=== PATIENT | male | born 1950 | race Caucasian/White ===

== ENCOUNTER 2018-03-29 08:48 | Day surgery (SDC) | payer OTHER ==
[2018-03-29] MEDS ORDERED: Ringers Lactate 1,000 ML IV ONE (09:41)
[2018-03-29] MEDS ORDERED: PROPOFOL 200 MG/20 ML VIAL IV ONE (10:23)
[2018-03-29] MEDS ORDERED: ROCURONIUM 50 MG/5 ML VIAL IV ONE (10:23)
[2018-03-29] MEDS ORDERED: LIDOCAINE 2% MPF 5 ML VIAL ONE ×2 (10:23→11:34)
[2018-03-29] MEDS ORDERED: MIDAZOLAM HCL 2 MG/2 ML INJ ONE (10:23)
[2018-03-29] MEDS ORDERED: FENTANYL CITR 100 MCG/2 ML ONE ×2 (10:23→11:31)
[2018-03-29] MEDS ORDERED: EPINEPHRINE/PF 1 MG/ML AMP ONE (11:11)
[2018-03-29] MEDS ORDERED: ONDANSETRON HCL 40 MG/20 ML VIAL ONE (11:23)
[2018-03-29] MEDS ORDERED: DEXAMETHASONE 4 MG/ML VIAL ONE (11:23)
[2018-03-29] MEDS ORDERED: EPHEDRINE SULF 50 MG/10 ML SYR ONE (11:24)
--- NOTE | 2018-03-29 11:36 | P.BOP ---
Preoperative diagnosis: R TVF lesion, history R TVC SCC in situ in 2013 Postoperative diagnosis: same Primary procedure: DL with telescope and removal of vocal tumor Prosthetic Lab Technician: NONE,NONE Estimated blood loss: <5ml Specimen: R TVF lesion Anesthesia: General Complications: None Drain(s): Nasogastric Implants: none Fluids & blood products: crystalloid 800ml Transferred to: Recovery Room Condition: Good
[2018-03-29 12:15] VITALS: O2SAT 94
[2018-03-29 12:51] VITALS: TEMP 96.1
[2018-03-29 13:37] VITALS: BP 126/72
--- NOTE | 2018-03-29 16:49 | OP ---
Surgeon: Jazz Mahoney MD Preoperative Diagnosis: Right vocal cord mass. Postoperative Diagnosis: Right vocal cord mass. Pathology: Pending. 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 He did well with initial monitoring and then was lost to follow up. He re-presented with new onset hoarseness and in-office laryngoscopy revealed a new mass on the right true vocal cord phonating surface, slightly posterior to the site of his prior lesion. The risks, benefits, and alternatives to the procedure were discussed with the patient who agreed to proceed. Procedure: Direct laryngoscopy with telescope and excision of vocal lesion. Description Of Procedure: The patient was brought to the operating room. He was placed under genera l anesthesia via oral endotracheal tube. A shoulder roll was placed. The neck was extended, but sup ported. A [employer] laryngoscope fitted with a 15-degree telescope was used to perform a direct l aryngoscopy and was placed in suspension. Photodocumentation of the lesion centered on the midportio n of the right true vocal cord was obtained. The lesion was then grasped with an angled laryngeal gr asper and retracted medially. The mass began to fragment and was therefore removed in a piecemeal fa shion. A small amount of residual tumor was then grasped with a small up-biting cup forceps. Once t his tissue was grasped, a straight and left angled laryngeal scissors were used to excise the lesion until no gross visible lesion was noted. Epinephrine-soaked pledget was applied to the vocal cord fo r several minutes to aid in hemostasis, and photodocumentation was again obtained of the site. There was no gross residual lesion noted. The larynx was suctioned and instrumentation was released from suspension and removed. The patient was then returned to care of anesthesia for awakening and extuba tion in the operating room, which proceeded without difficulty. Disposition: The patient will be discharged home later today and resume his anticoagulant anti-plate let medications tomorrow. GEMMA/MARLEN Voice ID: [id number] Report ID: [id number]
== END 2018-03-29 13:20 | disposition home or self-care (01) ==
LOC: OR 08:48
PROVIDERS: ATTEND Otolaryngology
PROC: 0CBT8ZZ Excision of Right Vocal Cord, Via Natural or Artificial Opening Endoscopic (ICD-10-PCS; principal; 2018-03-29 10:30)
DX: C32.0 Malignant neoplasm of glottis (principal); R49.0 Dysphonia; I10 Essential (primary) hypertension; I48.91 Unspecified atrial fibrillation; E66.9 Obesity, unspecified; Z68.38 Body mass index [BMI] 38.0-38.9, adult; Z91.041 Radiographic dye allergy status; Z91.040 Latex allergy status; Z80.9 Family history of malignant neoplasm, unspecified; Z83.3 Family history of diabetes mellitus
CPT/HCPCS: 88305; J0171; J2250; J2405; J3010

== ENCOUNTER 2019-06-09 07:01 | Day surgery (SDC) | payer OTHER ==
--- OUTSIDE RECORDS SUMMARY | 2019-06-09 07:03 | XMS REPORT ---
:1950 [facility] Address [address] [place] [address] Dr. Pacheco [address] [place] [id number] Care Team Providers Name Role Phone Unavailable Unavailable Unavailable Problems This patient has no known problems. Allergies, Adverse Reactions, Alerts This patient has no known allergies or adverse reactions. Medications This patient has no known medications.
[2019-06-09] MEDS ORDERED: Ringers Lactate 1,000 ML IV ONE (07:21)
[2019-06-09] MEDS ORDERED: CEFOXITIN/SWI 1gm 1 GM/10 ML SYR ONE (07:21)
[2019-06-09 07:48] LABS: Absolute Lymphocytes (CBC) 1.9 K/uL (0.7-4.9); Basophils % 0.5 % (0-1.3); Hematocrit 45.2 % (39.6-49.0); MPV 9.2 fL (7.6-11.3); RBC Red Blood Cell Count 5.18 M/uL (4.33-5.43)
[2019-06-09] MEDS ORDERED: FENTANYL CITR 100 MCG/2 ML ONE (07:55)
[2019-06-09] MEDS ORDERED: propofoL 200 MG/20 ML VIAL IV ONE (07:55)
[2019-06-09] MEDS ORDERED: MIDAZOLAM HCL 2 MG/2 ML INJ ONE (07:55)
[2019-06-09] MEDS ORDERED: LIDOCAINE 2% MPF 5 ML VIAL ONE (07:55)
[2019-06-09] MEDS ORDERED: ROCURONIUM 50 MG/5 ML VIAL IV ONE (08:04)
[2019-06-09] MEDS ORDERED: ONDANSETRON 4 MG/2 ML VIAL ONE (08:04)
[2019-06-09 08:06] LABS: Albumin 3.9 g/dL (3.4-5.0); Bilirubin Direct 0.2 mg/dL (0-0.2); Bilirubin Total 1.3 mg/dL (0.2-1.0); Potassium 4.6 mmol/L (3.5-5.1); Protein, Total 7.6 g/dL (6.4-8.2)
--- NOTE | 2019-06-09 08:41 | RAD REPORT ---
EXAM DESCRIPTION: RAD - Chest Pa And Lat (2 Views) - 06/09/2019 7:23 am CLINICAL HISTORY: SAME DAY SURGER ROOM 1 Chest pain. COMPARISON: Chest Pa And Lat (2 Views) dated 08/14/2016 FINDINGS: The lungs are clear. The heart is normal in size. No displaced fractures. IMPRESSION: No acute or concerning finding suspected.
[2019-06-09] MEDS ORDERED: GLYCOPYRROLATE 0.2 MG/ML SYR ONE (09:02)
[2019-06-09] MEDS ORDERED: NEOSTIGMINE 1 MG/ML -10 ML VIAL ONE (09:02)
--- NOTE | 2019-06-09 09:12 | P.BOP ---
Preoperative diagnosis: symptomatic cholelithiasis, acute cholecystitis Postoperative diagnosis: same Primary procedure: Laparoscopic cholecystectomy Barrel Builder: NICK BARCENAS (prop and effects designer) Estimated blood loss: <10cc Specimen: gb Findings: as above Anesthesia: General Complications: None Transferred to: Recovery Room Condition: Good
[2019-06-09 09:19] LABS: Blood Morphology Comment NOT SEEN (NOT SEEN); Platelet Estimate ADEQ; Urine White Blood Cell Casts DIFF
[2019-06-09] MEDS: HYDROMORPHONE HCL 1 MG/ML INJ ONE ×2 (09:41→09:46)
--- NOTE | 2019-06-09 10:40 | EKG ---
Test Date: 2019-06-09 Test Time: 07:49:47 [place] Tile Shader: DEBORAH MEASUREMENT RESULTS: Intervals: Rate: 63 CA: 172 QRSD: 96 QT: 420 QTc: 429 [place]: P: 55 CA: 172 QRS: 37 T: 55 INTERPRETIVE STATEMENTS: Normal sinus rhythm Normal ECG Compared to ECG 08/14/2016 21:05:01 Atrial fibrillation no longer present Electronically Signed On 06-09-19 10:39:43 WINDOWS APPLICATION ADMINISTRATOR by Pierre Campos
[2019-06-09] MEDS ORDERED: CODEINE 30MG/APAP 300MG TAB ONE (11:22)
[2019-06-09 16:00] VITALS: BP 111/61; TEMP 97.5; O2SAT 94
--- NOTE | 2019-06-09 20:15 | OP ---
Date of Procedure: 06/09/2019 Surgeon: Carl Vergara MD Respiratory Equipment Assistant: Fanta Blakely. Preoperative Diagnosis: Symptomatic cholelithiasis. Postoperative Diagnosis: Symptomatic cholelithiasis. Procedure: Laparoscopic cholecystectomy. Estimated Blood Loss: Less than 10 mL. Anesthesia: General plus local. Indications: This is a case of a 69-year-old patient, who comes to us with above diagnosis. Fully e xplained the benefits, alternatives, and risks of laparoscopic, possible open cholecystectomy, which include but are not limited to infection, bleeding, damage to adjacent structures, anesthesia complic ation, choledocholithiasis, bile leak, pancreatitis, VA, and even . He also understands this ma y not relieve his symptoms. He might need more than one surgical intervention. He understood, amanda d a consent. Description Of Procedure: Patient was brought to the operating room, placed in supine position. Ane sthesia was given without complication. Abdominal area was prepped and draped in a sterile fashion. Marcaine 0.5% was injected for local anesthetic, followed by sharp incision of the skin in the supra umbilical region since the patient has previous surgeries in the lower abdomen. Incision was carried down to fascia, which was opened under direct vision. Peritoneum was encountered, opened under dire ct vision. Vicryl #1 placed inside the fascia. Bruno trocar was carefully introduced. No bleeding was obtained. I placed 3 more trocars, 5 mm each one of them, in the right upper quadrant under dir ect visualization. This allowed me to put a grasper in the fundus of the gallbladder, another graspe r in the infundibulum, retracted the gallbladder in the inferolateral fashion exposing the triangle o f Calot, obtaining critical view of safety. Cystic duct and cystic artery were clearly isolated, sonya ed circumferentially and a connection between those and the gallbladder was clearly identified. I pr oceeded to ligate those by using at least 3 clips proximal, 1 clip distal, ligation in middle. Same was done with the cystic artery. No bile leak. No bleeding. The gallbladder was removed from liver using Bovie cauterizer and removed from abdominal cavity using EndoCatch through the umbilical incis ion. The area was inspected once again. No bile leak. No bleeding. At that moment, I proceeded to remove the trocars under direct vision. Deflated the pneumoperitoneum. Closed the fascia with #1 V icryl. Irrigated subcutaneous tissue, closed that with 3-0 chromic and skin with archana. Sponge co unt and instrument counts were correct. Patient tolerated the procedure well. Patient was sent to [facility] in stable condition. Disposition: Home. Activity: As tolerated. No heavy lifting. Followup: Follow up in my office in 1 week. Call for appointment on [phone]. Keep area dry for 48 hours, then may shower. Medications includes Tylenol No. 3 q.4 hours p.r.n. pain and Bactrim DS p.o . b.i.d. ALYSIA/MARLEN Voice ID: [id number] Report ID: [id number]
== END 2019-06-09 12:05 | disposition home or self-care (01) ==
LOC: OR 07:01
PROVIDERS: ATTEND Surgery
PROC: 0FT44ZZ Resection of Gallbladder, Percutaneous Endoscopic Approach (ICD-10-PCS; principal; 2019-06-09 08:30)
DX: K80.10 Calculus of gallbladder with chronic cholecystitis without obstruction (principal); I10 Essential (primary) hypertension; I48.91 Unspecified atrial fibrillation; Z01.812 Encounter for preprocedural laboratory examination; Z91.041 Radiographic dye allergy status; Z80.1 Family history of malignant neoplasm of trachea, bronchus and lung; Z83.3 Family history of diabetes mellitus
CPT/HCPCS: 47562; 93005; 85025; 80048; 36415; 82150; 80076; 88304; 83690; 71046; J2704; J2710; J2250; J3010; J1170; J7120; J2405

== ENCOUNTER 2021-05-19 09:13 | Emergency (ER) | payer OTHER ==
--- OUTSIDE RECORDS SUMMARY | 2021-05-19 09:17 | XMS REPORT | Continuity of Care Document ---
:1950 Author Organization [facility] t Address [address] [place] [address] Care Team Providers Name Role Phone Afsaneh KUMAR, R Primary Care Physician Mario KUMAR, L Attending Clinician HAYDEE Attending Clinician Unavailable JAYA Attending Clinician Unavailable TIFFANI Attending Clinician Unavailable MD Denys HUBBARD Attending Clinician Unavailable ZAID Attending Clinician Unavailable AKHIL Attending Clinician Unavailable MD JOVANY Attending Clinician Unavailable Ben KUMAR, [place] Attending Clinician TERRI Attending Clinician Unavailable Megan Andrew PA-C Attending Clinician Laura RN, A Attending Clinician Unavailable Lefty KUMAR Attending Clinician Jeremy KUMAR Attending Clinician SAIGE Attending Clinician Unavailable HAYDEE Admitting Clinician Unavailable MD Denys HUBBARD Admitting Clinician Unavailable JOVANY Admitting Clinician Unavailable MD JOVANY Admitting Clinician Unavailable TERRI Admitting Clinician Unavailable Jeremy KUMAR Admitting Clinician Payers Payer Name Policy Type Policy Number Effective Date Expiration Date S ource Problems Condition Condition Condition Status Onset Resolution Last Treating Co mments Source Name Details Category Date Date Treatment Clinician Date Essential Essential Disease Active 2019-0 Uni vers hypertensi hypertensi 5-15 it y of on on 00:00: [address] Branch Near Near Disease Active 2020-0 Univers syncope syncope 5-15 ity of 00:00: [place] 00 [facility] Diaphoresi Diaphoresi Disease Active U nivers s s 5-14 ity of 00:00: [place] [facility] Oropharyng Oropharyng Disease Active U nivers eal eal 4-21 ity of bleeding bleeding 00:00: 00 Medical Branch Pneumonia Pneumonia Disease Active 2017-06 Uni vers 2-22 ity of 00:00: [place] [facility] Vertigo Vertigo Disease Active Univers 6-02 ity of 00:00: [place] [facility] Dizziness Dizziness Disease Active Uni vers and and 6 ity of gidd[place] PAF PAF Disease Active Univers (paroxysma (paroxysma 08-20 it y of l atrial l atrial 00:00: [place] fibrillati fibrillati 00 Me dical on) on) Branch Obesity Obesity Disease Active Univers (BMI (BMI 2 ity of 30-39.9) 30-39.9) 00:00: [place] 00 [facility] Allergies, Adverse Reactions, Alerts Allergy Allergy Status Severity Reaction(s) Onset Inactive Treating Comm ents Source Name Type Date Date Clinician Codeine Propensi Active Unknown - Univ ers ty to See comments 11-23 reports ity of adverse 00:00: allergy [place] reaction 00 Medical s Branch Codeine Propensi Active GI Other [facility] ty to 11-23 reaction( [facility] adverse 00:00: s): of reaction 00 Unknown - Medic in s to See e drug commentsW salty reports allergy Iodine Propensi Active Anaphylaxis Uni vers ty to 08-20 ity of adverse 00:00: [place] reaction 00 Medical s Branch Latex, Propensi Active Rash Univers Natural ty to 08-20 ity of Rubber adverse 00:00: [place] reaction 00 Medical s Branch Iodine Propensi Active Anaphylaxis [facility] ty to 08-20 [place] adverse 00:00: of reaction 00 Medicin s to e drug Latex Propensi Active Rash ADHESIVES [facility] ty to 08-20 - PAPER [facility] adverse 00:00: TAPE AND of reaction 00 TEGADERM Medici n s to OK TO USE e substanc e Social History Social Habit Start Date Stop Date Quantity Comments Source History of tobacco Cigarette Smoker University of use [facility] Exposure to Not sure University SARS-CoV-2 (event) [facility] Tobacco use and 2020-03-03 2020-03-03 Never used [facility] llege of exposure 00:00:00 00:00:00 Medicine Cigarettes smoked 2020-03-03 2020-03-03 [facility] of current (pack per 00:00:00 00:00:00 Medicin e day) - Reported Cigarette 2020-03-03 2020-03-03 [facility] of pack-years 00:00:00 00:00:00 Medicine Alcohol intake 2020-03-03 2020-03-03 [facility] of 00:00:00 00:00:00 non-drinker Medicine (finding) Tobacco Comment 2019-11-19 2019-11-19 quit 1986 [facility] 00:00:00 00:00:00 Medicine Sex [birth year] [facility] llege of 00:00:00 00:00:00 Medicine Smoking Status Start Date Stop Date Source Former smoker 2020-03-03 00:00:00 2020-03-03 00:00:00 [facility] olle of Medicine Medications Ordered Filled Start Stop Current Ordering Indication Dosage Frequency Signature Comments Components Source Medication Medication Date Date Medication? Clinician (SIG) Name Name irbesartan Yes 300mg Take 300 Un [place] 300 mg 7-02 mg by ity of tablet 16:17: mouth at [place] [id number] bedtime. Medical Branch irbesartan Yes 300mg Take 300 [place] 300 mg 7-02 mg by ity of tablet 16:17: mouth at [place] [address] bedtime. Medical Branch Phenylephri 2019-06 Yes 10mL Take 10 mL [facility] ne-DM-GG 2-09 by mouth. Judie mayers 5-10-100 17:05: of MG/5ML SYRP 59 Medicin e polyethylen 2019-06 Yes 17g Take 17 g [facility] e glycol 2-09 by mouth. Colleg e (GLYCOLAX) 17:05: of 17 GM/SCOOP 59 Medicin powder e tramadol-ac 2019-06 Yes 1{tbl} Take 1 [facility] etaminophen 2-09 Tablet by Col lege (ULTRACET) 17:05: mouth. of 37.5-325 MG 59 Medicin per tablet e botulinum 2019-06 2020- No 100U Inject 100 [facility] toxin type 2-02 12-09 Units into Co llege A (BOTOX) 00:00: 00:00 the of 100 units 00 :00 muscle. Medicin injection e levothyroxi 2020- No 100ug Take 100 [facility] ne 9-16 09-17 mcg by College (SYNTHROID) 00:00: 04:59 mouth. of 100 MCG 00 :00 Medicin tablet e furosemide 2020-0 Yes [facility] (LASIX) 20 9-09 College MG tablet 18:39: of 48 Medicin e furosemide 2020-0 Yes [facility] (LASIX) 20 9-09 College MG tablet 18:39: of 48 Medicin e amoxicillin 2020-0 2020- No 1{tbl} Take 1 Tab [facility] -clavulanat 7-30 08-07 by mouth Col lege e 00:00: 04:59 two times of (AUGMENTIN) 00 :00 daily for Med icin 875-125 MG 7 days. e per tablet furosemide 2020-0 Yes [facility] (LASIX) 20 7-22 College MG tablet 19:53: of 06 Medicin e furosemide 2020-0 Yes [facility] (LASIX) 20 7-22 College MG tablet 19:53: of 06 Medicin e mupirocin 2020-0 Yes Apply to [facility] calcium 7-22 affected College (BACTROBAN) 00:00: area twice of 2 % cream 00 a day. Medicin e mupirocin 2020-0 Yes Apply to [facility] calcium 7-22 affected College (BACTROBAN) 00:00: area twice of 2 % cream 00 a day. Medicin e mupirocin 2020-0 Yes Apply to [facility] calcium 7-22 affected College (BACTROBAN) 00:00: area twice of 2 % cream 00 a day. Medicin e mupirocin 2020-0 Yes Apply to [facility] calcium 7-22 affected College (BACTROBAN) 00:00: area twice of 2 % cream 00 a day. Medicin e furosemide 2020-0 Yes [facility] (LASIX) 20 7-21 College MG tablet 18:46: of 05 Medicin e amoxicillin 2020-0 2020- No 1{tbl} Take 1 Tab [facility] -clavulanat 7-20 07-28 by mouth Col lege e 00:00: 04:59 two times of (AUGMENTIN) 00 :00 daily for Med icin 875-125 MG 7 days. e per tablet amoxicillin 2020-0 2020- No 1{tbl} Take 1 Tab [facility] -clavulanat 01-11 by mouth Col lege e 00:00: 04:59 two times of (AUGMENTIN) 00 :00 daily for Med icin 875-125 MG 7 days. e per tablet pantoprazol 2020-0 Yes TK 1 T PO [facility] e 01-09 QA College (PROTONIX) 00:00: of 40 MG 00 Medicin tablet e pantoprazol 2020-0 Yes TK 1 T PO [facility] e 01-09 [facility] (PROTONIX) 00:00: of 40 MG 00 Medicin tablet e pantoprazol 2020-0 Yes TK 1 T PO [facility] e 01-09 [facility] (PROTONIX) 00:00: of 40 MG 00 Medicin tablet e pantoprazol 2020-0 Yes TK 1 T PO [facility] 00:00: of 40 MG 00 Medicin tablet e furosemide 2020-0 Yes [facility] (LASIX) 20 7-08 College MG tablet 20:41: of 44 Medicin e amiodarone 2020-0 Yes [facility] (PACERONE) 5-21 College 200 MG 00:00: of tablet 00 Medicin e rosuvastati 2020-0 Yes TK 1 T PO [facility] n (CRESTOR) 5-21 QD College 10 MG 00:00: of tablet 00 Medicin e amiodarone 2020-0 Yes [facility] (PACERONE) 5-21 College 200 MG 00:00: of tablet 00 Medicin e rosuvastati 2020-0 Yes TK 1 T PO [facility] n (CRESTOR) 5-21 QD College 10 MG 00:00: of tablet 00 Medicin e amiodarone 2020-0 Yes [facility] (PACERONE) 5-21 College 200 MG 00:00: of tablet 00 Medicin e amiodarone 2020-0 Yes [facility] (PACERONE) 5-21 College 200 MG 00:00: of tablet 00 Medicin e rosuvastati 2020-0 Yes TK 1 T PO [facility] n (CRESTOR) 5-21 QD College 10 MG 00:00: of tablet 00 Medicin e rosuvastati 2020-0 Yes 10mg Take 10 mg Univers n 10 mg 5-21 by mouth. ity of tablet 00:00: [address] rosuvastati 2020-0 Yes TK 1 T PO [facility] n (CRESTOR) 5-21 QD College 10 MG 00:00: of tablet 00 Medicin e amiodarone 2020-0 Yes [facility] (PACERONE) 5-21 College 200 MG 00:00: of tablet 00 Medicin e rosuvastati 2020-0 Yes TK 1 T PO [facility] n (CRESTOR) 5-21 QD College 10 MG 00:00: of tablet 00 Medicin e amiodarone 2020-0 Yes [facility] (PACERONE) 5-21 College 200 MG 00:00: of tablet 00 Medicin e rosuvastati 2020-0 Yes TK 1 T PO [facility] n (CRESTOR) 5-21 QD College 10 MG 00:00: of tablet 00 Medicin e rosuvastati 2020-0 Yes 10mg Take 10 mg Univers n 10 mg 5-21 by mouth. ity of tablet 00:00: [address] rivaroxaban 2020-0 Yes 20mg Take 20 mg Univers (XARELTO) 5-15 by mouth ity of 20 mg 14:43: daily. [address] rivaroxaban 2020-0 Yes 20mg Take 20 mg Univers (XARELTO) 5-15 by mouth ity of 20 mg 14:43: daily. [address] levothyroxi 2020-0 Yes 88ug Take 88 [place] [facility] ne 5-15 mcg by College (SYNTHROID) 00:00: mouth. of 88 MCG 00 Medicin tablet e levothyroxi 2020-0 Yes 88ug Take 88 [place] [facility] ne 5-15 mcg by College (SYNTHROID) 00:00: mouth. of 88 MCG 00 Medicin tablet e levothyroxi 2020-0 Yes 88ug Take 88 [place] [facility] ne 5-15 mcg by College (SYNTHROID) 00:00: mouth. of 88 MCG 00 Medicin tablet e levothyroxi 2020-0 Yes 88ug Take 88 [place] [facility] ne 5-15 mcg by College (SYNTHROID) 00:00: mouth. of 88 MCG 00 Medicin tablet e levothyroxi 2020-0 Yes 88ug Take 88 [place] ne 5-15 mcg by [place] (SYNTHROID) 00:00: mouth. of 88 MCG 00 Medicin tablet e levothyroxi 2020-0 Yes 88ug Take 88 [place] [facility] ne 5-15 mcg by [place] (SYNTHROID) 00:00: mouth. of 88 MCG 00 Medicin tablet e levothyroxi 2020-0 Yes [id number] 88ug Take 1 Univers ne 88 mcg 5-15 tablet by ity o f tablet 00:00: mouth [place] 00 every Medical morning. Branch metoprolol 2020-0 Yes [id number] 12.5mg Take 12.5 Univers succinate 5-15 mg by ity of 25 mg CSpX 00:00: mouth [place] 00 daily. Medical Branch levothyroxi 2020-0 Yes [id number] 88ug Take 1 Univers ne 88 mcg 5-15 tablet by ity o f tablet 00:00: mouth [place] 00 every Medical morning. Branch metoprolol 2020-0 Yes [id number] 12.5mg Take 12.5 Univers succinate 5-15 mg by ity of 25 mg CSpX 00:00: mouth [place] 00 daily. Medical Branch XARELTO 20 2020-0 Yes TK 1 T PO [facility] MG TABS 5-11 D [facility] 00:00: of 00 Medicin e XARELTO 20 2020-0 Yes TK 1 T PO [facility] MG TABS 5-11 D [facility] 00:00: of 00 Medicin e XARELTO 20 2020-0 Yes TK 1 T PO [facility] MG TABS 5-11 D [facility] 00:00: of 00 Medicin e XARELTO 20 2020-0 Yes TK 1 T PO [facility] MG TABS 5-11 D [facility] 00:00: of 00 Medicin e XARELTO 20 2020-0 Yes TK 1 T PO [facility] MG TABS 5-11 D [facility] 00:00: of 00 Medicin e XARELTO 20 2020-0 Yes TK 1 T PO [facility] MG TABS 5-11 D [facility] 00:00: of 00 Medicin e metoprolol 2020-0 Yes TK 1 T PO [facility] (LOPRESSOR) 5-09 College 25 MG 00:00: of tablet 00 Medicin e metoprolol 2020-0 Yes TK 1 T PO [facility] (LOPRESSOR) 5-09 QD College 25 MG 00:00: of tablet 00 Medicin e metoprolol 2020-0 Yes TK 1 T PO [facility] (LOPRESSOR) 5-09 QD College 25 MG 00:00: of tablet 00 Medicin e metoprolol 2020-0 Yes TK 1 T PO [facility] (LOPRESSOR) 5-09 QD College 25 MG 00:00: of tablet 00 Medicin e metoprolol 2020-0 Yes TK 1 T PO [facility] (LOPRESSOR) 5-09 QD College 25 MG 00:00: of tablet 00 Medicin e metoprolol 2020-0 Yes TK 1 T PO [facility] (LOPRESSOR) 5-09 QD College 25 MG 00:00: of tablet 00 Medicin e amlodipine 2020-0 Yes [facility] (NORVASC) 5 3-10 College MG tablet 00:00: of 00 Medicin e irbesartan 2020-0 Yes [facility] (AVAPRO) 3-10 College 300 MG 00:00: of tablet 00 Medicin e amlodipine 2020-0 Yes [facility] (NORVASC) 5 3-10 College MG tablet 00:00: of 00 Medicin e irbesartan 2020-0 Yes [facility] (AVAPRO) 3-10 College 300 MG 00:00: of tablet 00 Medicin e amlodipine 2020-0 Yes [facility] (NORVASC) 5 3-10 College MG tablet 00:00: of 00 Medicin e amlodipine 2020-0 Yes [facility] (NORVASC) 5 3-10 College MG tablet 00:00: of 00 Medicin e irbesartan 2020-0 Yes [facility] (AVAPRO) 3-10 College 300 MG 00:00: of tablet 00 Medicin e irbesartan 2020-0 Yes [facility] (AVAPRO) 3-10 College 300 MG 00:00: of tablet 00 Medicin e amlodipine 2020-0 Yes [facility] (NORVASC) 5 3-10 College MG tablet 00:00: of 00 Medicin e irbesartan 2020-0 Yes [facility] (AVAPRO) 3-10 College 300 MG 00:00: of tablet 00 Medicin e amlodipine 2020-0 Yes [facility] (NORVASC) 5 3-10 College MG tablet 00:00: of 00 Medicin e irbesartan 2020-0 Yes [facility] (AVAPRO) 3-10 College 300 MG 00:00: of tablet 00 Medicin e acetaminoph 2019-1 Yes 1{tbl} 1 Tablet. [facility] en-codeine 2-16 College (TYLENOL 00:00: of #3) 300-30 00 Medicin MG per e tablet fluticasone 2018-0 Yes 2{spray 2 Sprays [facility] (FLONASE) 4-23 } by Nasal Colleg e 50 MCG/ACT 00:00: route. of nasal spray 00 Medicin e fluticasone Yes 2{spray 2 Sprays [facility] (FLONASE) 4-23 } by Nasal Colleg e 50 MCG/ACT 00:00: route. of nasal spray 00 Medicin e fluticasone 2018- Yes 2{spray 2 Sprays [facility] (FLONASE) 4-23 } by Nasal Colleg e 50 MCG/ACT 00:00: route. of nasal spray 00 Medicin e fluticasone Yes 2{spray 2 Sprays [facility] (FLONASE) 4-23 } by Nasal Colleg e 50 MCG/ACT 00:00: route. of nasal spray 00 Medicin e fluticasone Yes 2{spray 2 Sprays [facility] (FLONASE) 4-23 } by Nasal Colleg e 50 MCG/ACT 00:00: route. of nasal spray 00 Medicin e fluticasone 2018-0 Yes 2{spray 2 Sprays [facility] (FLONASE) 4-23 } by Nasal Colleg e 50 MCG/ACT 00:00: route. of nasal spray 00 Medicin e tramadol 2017-0 Yes 50mg Take 50 mg [place] [facility] (ULTRAM) 50 7-17 by mouth. Col lege MG tablet 00:00: of Medicin e tramadol 2017-0 Yes 50mg Take 50 mg [place] [facility] (ULTRAM) 50 7-17 by mouth. Col lege MG tablet 00:00: of Medicin e tramadol 2017-0 Yes 50mg Take 50 mg [place] [facility] (ULTRAM) 50 7-17 by mouth. Col lege MG tablet 00:00: of Medicin e tramadol 2016-0 Yes 50mg Take 50 mg [place] [facility] (ULTRAM) 50 7-17 by mouth. Col lege MG tablet 00:00: of Medicin e tramadol 2017-0 Yes 50mg Take 50 mg [place] [facility] (ULTRAM) 50 7-17 by mouth. Col lege MG tablet 00:00: of 00 Medicin e tramadol 2016-0 Yes 50mg Take 50 mg [place] [facility] (ULTRAM) 50 7-17 by mouth. Col lege MG tablet 00:00: of 00 Medicin e nitroglycer 2016-[address] 1 Uni vers in 0.4 mg 2-28 tablet ity of sublingual 00:00: [place] tablet 00 tongue Medical every 5 Branch (five) minutes as needed for Chest pain. nitroglycer [address] 1 Uni vers in 0.4 mg 2-28 tablet ity of sublingual 00:00: [place] tablet 00 tongue Medical every 5 Branch (five) minutes as needed for Chest pain. Immunizations Ordered Filled Immunization Date Status Comments [facility] e Immunization Name Name Pneumococcal 2016-11-26 Completed [place] o f Polysaccharide, 00:00:00 [facility] ical PPSV23 (PNEUMOVAX) Branch Pneumococcal 2016-11-26 Completed [place] o f Polysaccharide, 00:00:00 [place] [facility] ical PPSV23 (PNEUMOVAX) Branch Vital Signs Vital Name Observation Time Observation Value Comments Source Systolic blood 2021 13:19:00 134 mm[Hg] [facility] Diastolic blood 2021 13:19:00 83 mm[Hg] [facility] Heart rate 2021 13:19:00 58 /min [facility] Respiratory rate 2021 13:19:00 18 /min [facility] Oxygen saturation in 2021 13:19:00 99 /min [facility] Arterial blood by [facility] Pulse oximetry Branch Body height 2020-06-02 17:03:00 177.8 cm [facility] Body weight 2020-06-02 17:03:00 97.523 kg [facility] BMI 2020-06-02 17:03:00 30.85 kg/m2 [facility] Systolic blood 2020-03-03 18:39:00 151 mm[Hg] [facility] Medicine Diastolic blood 2020-03-03 18:39:00 72 mm[Hg] [facility] pressure Medicine Heart rate 2020-03-03 18:39:00 47 /min [facility] Body temperature 2020-03-03 18:39:00 36.17 [facility] Body height 2020-03-03 18:39:00 177.8 cm [facility] Body weight 2020-03-03 18:39:00 107.956 kg [facility] BMI 2020-03-03 18:39:00 34.15 kg/m2 [facility] Systolic blood 2020-01-28 18:51:00 134 mm[Hg] [facility] of pressure Medicine Diastolic blood 2020-01-28 18:51:00 73 mm[Hg] [facility] Medicine Heart rate 2020-01-28 18:51:00 50 /min [facility] Body height 2020-01-28 18:51:00 177.8 cm [facility] ol[facility] of Medicine Body weight 2020-01-28 18:51:00 107.956 kg [facility] of Medicine BMI 2020-01-28 18:51:00 34.15 kg/m2 [facility] Systolic blood 2020-01-14 19:48:00 103 mm[Hg] [facility] of pressure Medicine Diastolic blood 2020-01-14 19:48:00 61 mm[Hg] [facility] of pressure Medicine Heart rate 2020-01-14 19:48:00 50 /min [facility] of Medicine Body temperature 2020-01-14 19:48:00 36.89 [facility] Body height 2020-01-14 19:48:00 177.8 cm [facility] of Medicine Body weight 2020-01-14 19:48:00 107.956 kg [facility] of Medicine BMI 2020-01-14 19:48:00 34.15 kg/m2 [facility] of Medicine Systolic blood 2020-01-13 18:45:00 114 mm[Hg] [facility] of pressure Medicine Diastolic blood 2020-01-13 18:45:00 61 mm[Hg] [facility] pressure Medicine Heart rate 2020-01-13 18:45:00 56 /min [facility] of Medicine Body height 2020-01-13 18:45:00 177.8 cm [facility] of Medicine Body weight 2020-01-13 18:45:00 107.956 kg [facility] of Medicine BMI 2020-01-13 18:45:00 34.15 kg/m2 [facility] of Medicine Systolic blood 2019-12-31 20:40:00 120 mm[Hg] [facility] pressure Medicine Diastolic blood 2019-12-31 20:40:00 70 mm[Hg] [facility] pressure Medicine Heart rate 2019-12-31 20:40:00 58 /min [facility] of Medicine Body temperature 2019-12-31 20:40:00 36.33 [facility] Body height 2019-12-31 20:40:00 177.8 cm [facility] of Medicine Body weight 2019-12-31 20:40:00 107.956 kg [facility] ollege of [facility] BMI 2019-12-31 20:40:00 [facility] Procedures This patient has no known procedures. Plan of Care Planned Activity Planned Date Details Comments Source Future Scheduled Test COLON CANCER SCREENING: [facility] COLONOSCOPY [code = Medicine COLON CANCER SCREENING: COLONOSCOPY] Future Scheduled Test TETANUS SHOT (ADULT) [facility] [code = TETANUS SHOT Medicin e (ADULT)] Future Scheduled Test BMI FOLLOW UP PLAN [facility] [code = BMI FOLLOW UP Medici ne PLAN] Future Scheduled Test HEPATITIS C SCREENING [facility] [code = HEPATITIS C Medicine SCREENING] Future Scheduled Test ZOSTER VACCINE (1 of 2) [facility] [code = ZOSTER VACCINE Medic ine (1 of 2)] Future Scheduled Test MEDICARE AWV (Initial) [facility] [code = MEDICARE AWV Medicin e (Initial)] Future Scheduled Test AAA Screen [code = AAA [facility] Screen] Medicine Future Scheduled Test FALL SCREEN [code = [facility] FALL SCREEN] Medicine Future Scheduled Test FLU VACCINE > 6 MONTHS [facility] [code = FLU VACCINE > 6 Medi cine MONTHS] Future Scheduled Test COLON CANCER SCREENING: [facility] COLONOSCOPY [code = Medicine COLON CANCER SCREENING: COLONOSCOPY] Future Scheduled Test TETANUS SHOT (ADULT) [facility] [code = TETANUS SHOT Medicin e (ADULT)] Future Scheduled Test BMI FOLLOW UP PLAN [facility] [code = BMI FOLLOW UP Medici ne PLAN] Future Scheduled Test HEPATITIS C SCREENING [facility] [code = HEPATITIS C Medicine SCREENING] Future Scheduled Test ZOSTER VACCINE (1 of 2) [facility] [code = ZOSTER VACCINE Medic ine (1 of 2)] Future Scheduled Test MEDICARE AWV (Initial) [facility] [code = MEDICARE AWV Medicin e (Initial)] Future Scheduled Test AAA Screen [code = AAA [facility] of Screen] Medicine Future Scheduled Test FALL SCREEN [code = [facility] of FALL SCREEN] Medicine Future Scheduled Test FLU VACCINE > 6 MONTHS [facility] [code = FLU VACCINE > 6 Medi cine MONTHS] Future Scheduled Test COLON CANCER SCREENING: [facility] COLONOSCOPY [code = Medicine COLON CANCER SCREENING: COLONOSCOPY] Future Scheduled Test TETANUS SHOT (ADULT) [facility] [code = TETANUS SHOT Medicin e (ADULT)] Future Scheduled Test BMI FOLLOW UP PLAN [facility] [code = BMI FOLLOW UP Medici ne PLAN] Future Scheduled Test HEPATITIS C SCREENING [facility] [code = HEPATITIS C Medicine SCREENING] Future Scheduled Test ZOSTER VACCINE (1 of 2) [facility] [code = ZOSTER VACCINE Medic ine (1 of 2)] Future Scheduled Test MEDICARE AWV (Initial) [facility] [code = MEDICARE AWV Medicin e (Initial)] Future Scheduled Test AAA Screen [code = AAA [facility] of Screen] Medicine Future Scheduled Test FALL SCREEN [code = [facility] of FALL SCREEN] Medicine Future Scheduled Test FLU VACCINE > 6 MONTHS [facility] [code = FLU VACCINE > 6 Medi cine MONTHS] Future Scheduled Test COLON CANCER SCREENING: [facility] COLONOSCOPY [code = Medicine COLON CANCER SCREENING: COLONOSCOPY] Future Scheduled Test TETANUS SHOT (ADULT) [facility] [code = TETANUS SHOT Medicin e (ADULT)] Future Scheduled Test BMI FOLLOW UP PLAN [facility] [code = BMI FOLLOW UP Medici ne PLAN] Future Scheduled Test HEPATITIS C SCREENING [facility] [code = HEPATITIS C Medicine SCREENING] Future Scheduled Test MEDICARE AWV (Initial) [facility] [code = MEDICARE AWV Medicin e (Initial)] Future Scheduled Test AAA Screen [code = AAA [facility] of Screen] Medicine Future Scheduled Test FALL SCREEN [code = [facility] of FALL SCREEN] Medicine Future Scheduled Test FLU VACCINE > 6 MONTHS [facility] [code = FLU VACCINE > 6 Medi cine MONTHS] Future Scheduled Test COLON CANCER SCREENING: [facility] COLONOSCOPY [code = Medicine COLON CANCER SCREENING: COLONOSCOPY] Future Scheduled Test TETANUS SHOT (ADULT) [facility] [code = TETANUS SHOT Medicin e (ADULT)] Future Scheduled Test BMI FOLLOW UP PLAN [facility] [code = BMI FOLLOW UP Medici ne PLAN] Future Scheduled Test HEPATITIS C SCREENING [facility] [code = HEPATITIS C Medicine SCREENING] Future Scheduled Test MEDICARE AWV (Initial) [facility] [code = MEDICARE AWV Medicin e (Initial)] Future Scheduled Test AAA Screen [code = AAA [facility] of Screen] Medicine Future Scheduled Test FALL SCREEN [code = [facility] of FALL SCREEN] Medicine Future Scheduled Test FLU VACCINE > 6 MONTHS [facility] [code = FLU VACCINE > 6 Medi cine MONTHS] Future Scheduled Test COLON CANCER SCREENING: [facility] COLONOSCOPY [code = Medicine COLON CANCER SCREENING: COLONOSCOPY] Future Scheduled Test TETANUS SHOT (ADULT) [facility] [code = TETANUS SHOT Medicin e (ADULT)] Future Scheduled Test BMI FOLLOW UP PLAN [facility] [code = BMI FOLLOW UP Medici ne PLAN] Future Scheduled Test HEPATITIS C SCREENING [facility] [code = HEPATITIS C Medicine SCREENING] Future Scheduled Test MEDICARE AWV (Initial) [facility] [code = MEDICARE AWV Medicin e (Initial)] Future Scheduled Test AAA Screen [code = AAA [facility] of Screen] Medicine Future Scheduled Test FALL SCREEN [code = [facility] of FALL SCREEN] Medicine Future Scheduled Test FLU VACCINE > 6 MONTHS [facility] [code = FLU VACCINE > 6 Medi cine MONTHS] Encounters Start End Encounter Admission Attending Care Care Encounter Source Date/Time Date/Time Type Type Clinicians Facility Department ID 2021 2021 Office LIVIA Martin [id number] [facility] 08:08:45 09:17:45 Visit [facility] [id number] it y of OLAF 4.2.7.2.686 Govind as OSORIO?BLEA [phone] [place] BA[place] [address] [place] [address] MEDICAL OFFICE BUILDING 2021-02-03 2021-02-03 [facility] [id number] [place] 00:00:00 00:00:00 JANELL [address] 2020-12-22 2020-12-22 Outpatient MOHYUDDIN, [facility] 2100 [id number] [place] 00:00:00 00:00:00 JANELL [address] 2020-12-22 2020-12-22 Outpatient MOHYUDDIN, [facility] 2100 [id number] [place] 00:00:00 00:00:00 JANELL [address] 2020-12-07 2020-12-07 Outpatient MOHYUDDIN, [facility] 2100 [id number] [place] 00:00:00 00:00:00 JANELL [address] 2020-12-06 2020-12-06 Outpatient CUBB, [facility] [id number] [place] 00:00:00 00:00:00 EREN [address] 2020-11-08 2020-11-08 Outpatient MOHYUDDIN, [facility] 2100 [id number] [place] 00:00:00 00:00:00 JANELL [address] 2020-11-08 2020-11-08 Outpatient MOHYUDDIN, [facility] 2100 [id number] [place] 00:00:00 00:00:00 JANELL [address] 2020-11-02 2020-11-02 Outpatient MOHYUDDIN, [facility] 2100 [id number] [place] 00:00:00 00:00:00 JANELL [address] 2020-11-01 2020-11-01 Outpatient GRACEYUDDIN, [facility] 2100 [id number] [place] 00:00:00 00:00:00 JANELL [address] 2020-10-21 2020-10-21 Outpatient MOHYUDDIN, [facility] 2100 [id number] [place] 00:00:00 00:00:00 JANELL [address] 2020-10-13 2020-10-13 Outpatient MOHYUDDIN, [facility] 2100 [id number] [place] 00:00:00 00:00:00 JANELL [address] 2020-09-16 2020-09-16 Outpatient MOHYUDDIN, [facility] 2100 [id number] [place] 00:00:00 00:00:00 JANELL [address] 2020-08-22 2020-08-22 Outpatient ROBBEN, [facility] [id number] [place] 00:00:00 00:00:00 CHRISTOPHER [address] 2020-08-04 2020-08-04 Outpatient GRACEYUDDIN, [facility] 2100 [id number] [place] 00:00:00 00:00:00 JANELL [address] 2020-08-01 2020-08-01 Outpatient [facility] [id number] [place] 00:00:00 00:00:[address] 2020-07-28 2020-07-28 Outpatient MOHYUDDIN, [facility] 2100 [id number] [place] 00:00:00 00:00:00 JANELL [address] 2020-07-28 2020-07-28 Outpatient MOHYUDDIN, [facility] 2100 [id number] [place] 00:00:00 00:00:00 JANELL [address] 2020-07-28 2020-07-28 Outpatient GRACEYUDDIN, [facility] 2100 [id number] [place] 00:00:00 00:00:00 JANELL [address] 2020-07-21 2020-07-21 Outpatient GRACEYUDDIN, [facility] 2100 [id number] [place] 00:00:00 00:00:00 JANELL [address] 2020-07-19 2020-07-19 Outpatient GRACEYUDDIN, [facility] 2100 [id number] [place] 00:00:00 00:00:00 JANELL [address] 2020-07-09 2020-07-09 Outpatient GRACEYUDDIN, [facility] 021 2100 [id number] [place] 00:00:00 00:00:00 JANELL [address] 2020-07-05 2020-07-05 Outpatient MOHYUDDIN, [facility] 2100 [id number] [place] 00:00:00 00:00:00 JANELL [address] 2020-07-05 2020-07-05 Outpatient CUBB, [facility] [id number] [place] 00:00:00 00:00:00 EREN [address] 2020-06-24 2020-06-24 Outpatient ZAID, EREN [facility] [id number] [place] 00:00:00 00:00:[address] 2020-06-24 2020-06-24 Outpatient ZAID, EREN [facility] [id number] [place] 00:00:00 00:00:[address] 2020-06-16 2020-06-16 Outpatient HAYDEE, [facility] 2100 [id number] [place] 00:00:00 00:00:00 JANELL [address] 2020-06-16 2020-06-16 Outpatient HAYDEE [facility] 2100 [id number] [place] 00:00:00 00:00:00 JANELL [address] 2020-06-09 2020-06-10 Inpatient AKHIL, [facility] [id number] [place] 00:00:00 00:00:00 KIMI [address] 2020-06-09 2020-06-09 Outpatient JAYA, [facility] [id number] [place] 00:00:00 00:00:00 EREN [address] 2020-06-02 2020-06-02 Office BenCECILYFrida [id number] [place] [address] 10:33:13 13:28:01 Visit Yogi eRynoso AMBULATOR 350.1.13.21 College Y 0.2.7.2.686 of [id number] Medi truman 800 e 2020-05-26 2020-05-26 Outpatient HAYDEE, [facility] 2100 [id number] [place] 00:00:00 00:00:00 JANELL [address] 2020-05-26 2020-05-26 Outpatient HAYDEE [facility] 2100 [id number] [place] 00:00:00 00:00:00 JANELL [address] 2020-05-12 2020-05-12 Outpatient MEAGANUDKHUSHI, [facility] 2100 [id number] [place] 00:00:00 00:00:00 JANELL [address] 2020-05-12 2020-05-12 Outpatient HAYDEE [facility] 2100 [id number] [place] 00:00:00 00:00:00 JANELL [address] 2020-05-03 2020-05-03 Outpatient MEAGANUDKHUSHI, [facility] 2100 [id number] [place] 00:00:00 00:00:00 JANELL [address] 2020-04-07 2020-04-07 Outpatient MEAGANUDKHUSHI, [facility] 2100 [id number] [place] 00:00:00 00:00:00 JANELL [address] 2020-04-07 2020-04-07 Outpatient HAYDEE [facility] 2100 [id number] [place] 00:00:00 00:00:00 JANELL [address] 2020-03-24 2020-03-24 Outpatient HAYDEE [facility] 2100 [id number] [place] 00:00:00 00:00:00 JANELL [address] 2020-03-16 2020 Outpatient FIDE MURRAY [facility] 021 [id number] [place] 00:00:00 00:00:[address] 2020-03-11 2020-03-11 Outpatient HAYDEE [facility] 2100 [id number] [place] 00:00:00 00:00:00 JANELL [address] 2020-03-03 2020-03-03 Office Contreras, [facility] [id number] [place] 13:12:23 14:23:40 Visit Yogi Mcginniso AMBULATOR 350.1.13.21 College Y 0.2.7.2.686 of [id number] Medi truman 800 e 2020-02-24 2020-02-24 Outpatient JAYA, [facility] [id number] [place] 00:00:00 00:00:00 EREN [address] 2020-02-13 2020-02-13 [facility] 2100 [id number] [place] 00:00:00 00:00:00 JANELL [address] 2020-02-13 2020-02-13 [facility] 2100 [id number] [place] 00:00:00 00:00:00 JANELL [address] 2020-01-28 2020-01-[address] [facility] [id number] [place] 13:31:18 14:19:42 Visit Yogi Mcginniso AMBULATOR 350.1.13.21 College Y 0.2.7.2.686 of [id number] Medi truman 800 e 2020-01-16 2020-01-16 [facility] 2100 [id number] [place] 00:00:00 00:00:00 JANELL [address] 2020-01-15 2020-01-15 Outpatient HAYDEE [facility] 2100 [id number] [place] 00:00:00 00:00:00 JANELL [address] 2020-01-14 2020-01-14 Office ALICE Contreras 1.2.840.114 [id number] [place] 14:27:19 15:15:13 Visit Yogi Mcginniso AMBULATOR 350.1.13.21 College Y 0.2.7.2.686 of [id number] Medi truman 800 e 2020-01-13 2020-01-13 Office ALICE Andrew [id number] [place] 13:20:52 14:16:08 Visit Sanjuana AMBULATOR 350.1.13.21 College Megan Y 0.2.7.2.686 of [id number] Medi truman 800 e 2020-01-02 2020-01-02 [facility] 2100 [id number] [place] 00:00:00 00:00:00 JANELL 423 [facility] i 2020-01-02 2020-01-02 [facility] 2100 [id number] [place] 00:00:00 00:00:00 JANELL 527 Method i 2020-01-02 2020-01-02 [facility] 2100 [id number] [place] 00:00:00 00:00:00 JANELL [address] 2019-12-31 2019-12-[address] [facility] [id number] [place] 14:40:23 16:33:41 Visit Yogi Mcginniso AMBULATOR 350.1.13.21 College Y 0.2.7.2.686 of [id number] Medi truman 800 e 2019-12-30 2019-12-30 [facility] 2100 [id number] [place] 00:00:00 00:00:00 JANELL [address] 2019-12-09 2019-12-16 Inpatient [facility] [id number] [place] 00:00:00 00:00:00 JANELL [address] 2019-12-05 2019-12-05 Out[facility] 2100 [id number] [place] 00:00:00 00:00:00 JANELL [address] 2019-12-03 2019-12-03 Outpatient HAYDEE, [facility] 2100 [id number] [place] 00:00:00 00:00:00 JANELL [address] 2019-12-03 2019-12-03 Outpatient HAYDEE [facility] 2100 [id number] [place] 00:00:00 00:00:00 JANELL [address] 2019-11-25 2019-11-25 Outpatient HAYDEE [place] [address] 2100 [id number] [place] 00:00:00 00:00:00 JANELL [address] 2019-11-18 2019-11-18 Outpatient HAYDEE [facility] 2099 [id number] [place] 00:00:00 00:00:00 JANELL 791 Method i 2019-11-18 2019-11-18 Outpatient HAYDEE [facility] 2100 [id number] [place] 00:00:00 00:00:00 JANELL 852 Method i 2019-11-18 2019-11-18 Outpatient HAYDEE [facility] [id number] [id number] [place] 00:00:00 00:00:00 JANELL 853 Method i 2019-11-12 2019-11-12 Outpatient HAYDEE [facility] 2099 [id number] [place] 00:00:00 00:00:00 JANELL [address] 2019-11-10 2019-11-10 Transition Laura, Alirio 1.2.840.114 [id number] 00:00:00 00:00:00 of Care José Miguel Arana 350.1.13.10 [place] 4.2.7.2.686 [id number] 2019-11-06 2019-11-07 Emergency Sherwin Olea [facility] 1.2.840. 114 [id number] 13:35:59 14:27:00 Sina Luna 350.1.13.10 [place] 4.2.7.2.686 [place] [id number] [facility] 2019-07-21 2019-07-21 Outpatient SAIGE [facility] [id number] [place] 00:00:00 00:00:[address] EDWARD [address] 2019-07-21 2019-07-21 Outpatient SAIGE [facility] [id number] [place] 00:00:00 00:00:00 GRISELDA [address] 2019-03-10 2019-03-10 Outpatient SAIGE [facility] [id number] [place] 00:00:00 00:00:00 GRISELDA [address] Results Test Description Test Time Test Comments Results Result Comments Source SARS-CoV-2 (COVID-19) RNA [Presence] in Respiratory sp ecimen by 2020-07-05 20:50:39 PRITI with probe detection Test Item Value Reference Range Interpretation Comme nts SARS-CoV-2 (COVID-19) RNA [Presence] in Respiratory Not detected No t-Detected specimen by PRITI with probe detection (test code = 15226-4) SARS-CoV-2 (COVID-19) RNA [Presence] in Respiratory specimen by PRITI with probe [id number] 05:42:16 Test Item Value Reference Range Interpretation Comments SARS-CoV-2 (COVID-19) RNA Not detected Not-Detected [Presence] in Respiratory specimen by PRITI with probe detection (test code = 41454-2) SARS-CoV-2 (COVID-19) RNA [Presence] in Respiratory specimen by PRITI with probe [id number] 17:41:12 Test Item Value Reference Range Interpretation Comments SARS-CoV-2 (COVID-19) RNA Not detected Not-Detected [Presence] in Respiratory specimen by PRITI with probe detection (test code = 59691-3) SARS coronavirus 2 RNA [Presence] in Respiratory specimen by PRITI with probe [id number] 17:42:36 Test Item Value Reference Range Interpretation Comments SARS coronavirus 2 RNA Not detected Not-Detected [Presence] in Respiratory specimen by PRITI with probe detection (test code = 73524-6)
--- NOTE | 2021-05-19 09:51 | ER ---
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 Pt wrote down difficulty breathing. Denies pain. Coronavirus screen: Vaccine status: Patient reports receiving the 2nd dose of the covid vaccine. Client denies travel out of the [place] in the last 14 days. Ebola Screen: Patient negative for fever greater than or equal to 101.5 degrees Fahrenheit, and additional compatible Ebola Virus Disease symptoms. Initial Sepsis Screen: Does the patient meet any 2 criteria? RR > 20 per min. Risk Assessment: Do you want to hurt yourself or someone else? Patient reports no desire to harm self or others. Onset of symptoms was May 19, 2021. 09:23 Method Of Arrival: Ambulatory vg1 09:23 Acuity: LEYDI 2 vg1 Triage Assessment: 09:25 General: Appears in no apparent distress. uncomfortable, Behavior is calm, cooperative. vg1 Pain: Denies pain. Respiratory: Airway is patent Respiratory effort is even, unlabored, Respiratory pattern is tachypnea. Derm: Skin is intact, is healthy with good turgor. Historical: - Allergies: 09:25 Iodine; vg1 - Home Meds: : Unable to obtain [Active]; vg1 - PMHx: 09:25 Diabetes mellitus; Atrial fibrillation; Hypercholesterolemia; vg1 - Immunization history:: Client reports receiving the 2nd dose of the Covid vaccine. - Social history:: Smoking status: Patient denies any tobacco usage or history of. - Family history:: not pertinent. Assessment: 09:35 Reassessment: Patient AAO X 3, ambulatory with steady gait noted, shows no signs of sl2 acute distress or discomfort, patient presents to ED for replacement of prosthetic device to laryngectomy stoma - patient states he was coughing a lot this morning at approximately 7:30am and stoma became dislodged, Oxygen saturation currently \\T\\ 96% on room air, lung sounds clear. 10:18 Reassessment: Initiated transfer to [facility] as we do not have ENT specialty on today. Spoke with community coordinator for [employer]. Awaiting call back for doc to doc with ENT specialist. 11:01 Reassessment: Administrative approval given at this time from [facility]. 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 11:24 Reassessment: Patient has placed a sterile 16 gauge Workman catheter tip to laryngectomy [facility] stoma to maintain patency, sterile technique was observed. Vital Signs: 09:23 BP 150 / 66; Pulse 126; Resp 24; Temp 98.1; Pulse Ox 97% ; Weight 95.25 kg; Height 5 vg1 ft. 10 in. (177.80 cm); Pain 0/10; 10:00 BP 129 / 75; Pulse 70; Resp 20; Pulse Ox 97% on R/A; sl2 11:00 BP 114 / 65; Pulse 75; Resp 18; Temp 98.2; Pulse Ox 97% on R/A; sl2 09:23 Body Mass Index 30.13 (95.25 kg, 177.80 cm) vg1 ED Course: 09:14 Patient arrived in ED. mr 09:25 Triage completed. vg1 09:25 Arm band placed on. vg1 09:43 Miguel Yi MD is Attending Physician. ma2 10:37 COVID-19 SARS RT PCR (Document "Date of Onset" if Symptomatic) Sent. 5 10:37 COVID swab sent to lab. [facility] 11:17 Katharina Davidson, JUAN R is Primary Nurse. 2 11:42 No provider procedures requiring assistance completed. Patient did not have IV access ss during this emergency room visit. Administered Medications: No medications were administered Outcome: 09:51 ER care complete, transfer ordered by . [facility] 11:42 Transferred by ground EMS by private ambulance Transfer form completed. Note: [facility] 11:42 Condition: stable 11:42 Instructed on the need for transfer. 11:43 Patient left the ED. Signatures: Helena Gastelum Shelby, RN RN Cecile Vergara Miguel Betancur MD MD ma2 Garcia Merry, RN RN vg1 Katharina Davidson RN RN sl2 Corrections: (The following items were deleted from the chart) : 09:25 Derm: Skin is intact, is healthy with good turgor, vg1 vg1
--- NOTE | 2021-05-19 09:51 | EDPHYS ---
Physician Documentation [facility] Name: Sierra Valdes Age: 71 yrs Sex: Male : 1950 Arrival Date: 05/19/2021 Time: 09:14 Bed 18 Private MD: ED Physician Miguel Yi HPI: 05/19 09:45 This 71 yrs old Male presents to ER via Ambulatory with complaints of tracheoesophageal ma2 prosthesis fell in . 09:45 Onset: The symptoms/episode began/occurred suddenly, 1 hour(s) ago. Severity of ma2 symptoms: At their worst the symptoms were moderate, in the emergency department the symptoms are unchanged. Associated signs and symptoms: Pertinent negatives: chest pain, diarrhea, ear ache, fever, nausea, rhinorrhea, sore throat. The patient has not experienced similar symptoms in the past. Historical: - Allergies: 09:25 Iodine; vg1 - Home Meds: :25 Unable to obtain [Active]; vg1 - PMHx: 09:25 Diabetes mellitus; Atrial fibrillation; Hypercholesterolemia; vg1 - Immunization history:: Client reports receiving the 2nd dose of the Covid vaccine. - Social history:: Smoking status: Patient denies any tobacco usage or history of. - Family history:: not pertinent. ROS: 09:45 Constitutional: Negative for fever, chills, and weight loss. ma2 09:45 All other systems are negative. Exam: 09:45 Constitutional: This is a well developed, well nourished patient who is awake, alert, ma2 and in no acute distress. Head/Face: Normocephalic, atraumatic. Eyes: Pupils equal round and reactive to light, extra-ocular motions intact. Lids and lashes normal. Conjunctiva and sclera are non-icteric and not injected. Cornea within normal limits. Periorbital areas with no swelling, redness, or edema. 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 Because he stated it was dirty. Patient has no bleeding at this time. Or any symptoms. Otherwise nares patent. No nasal discharge, no septal abnormalities noted. Tympanic membranes are normal and external auditory canals are clear. Oropharynx with no redness, swelling, or masses, exudates, or evidence of obstruction, uvula midline. Mucous membranes moist. Neck: Trachea midline, no thyromegaly or masses palpated, and no cervical lymphadenopathy. Supple, full range of motion without nuchal rigidity, or vertebral point tenderness. No Meningismus. Chest/axilla: Normal chest wall appearance and motion. Nontender with no deformity. No lesions are appreciated. Cardiovascular: Regular rate and rhythm with a normal S1 and S2. No gallops, murmurs, or rubs. Normal PMI, no JVD. No pulse deficits. Respiratory: Lungs have equal breath sounds bilaterally, clear to auscultation and percussion. No rales, rhonchi or wheezes noted. No increased work of breathing, no retractions or nasal flaring. MS/ Extremity: Pulses equal, no cyanosis. Neurovascular intact. Full, normal range of motion. Neuro: Awake and alert, GCS 15, oriented to person, place, time, and situation. Cranial nerves II-XII grossly intact. Motor strength 5/5 in all extremities. Sensory grossly intact. Cerebellar exam normal. Normal gait. Vital Signs: 09:23 BP 150 / 66; Pulse 126; Resp 24; Temp 98.1; Pulse Ox 97% ; Weight 95.25 kg; Height 5 vg1 ft. 10 in. (177.80 cm); Pain 0/10; 10:00 BP 129 / 75; Pulse 70; Resp 20; Pulse Ox 97% on R/A; sl2 11:00 BP 114 / 65; Pulse 75; Resp 18; Temp 98.2; Pulse Ox 97% on R/A; sl2 09:23 Body Mass Index 30.13 (95.25 kg, 177.80 cm) vg1 MDM: 09:45 Differential Diagnosis: Bronchitis Upper Respiratory Infection Sinusitis Pharyngitis ma2 Other Tracheoesophageal prosthesis fell, patient inserted a Workman catheter, to keep stoma alive. Patient requested ENT to place tracheoesophageal prosthesis back in place, we do not have ENT pilot control operator today. Patient requests transfer to [facility]. Will transfer patient to [facility], based on patient preference. 09:51 [facility]51 Data reviewed: vital signs, nurses notes. Counseling: I had a detailed discussion with ma2 the patient and/or guardian regarding: the historical points, exam findings, and any diagnostic results supporting the discharge/admit diagnosis, the presence of at least one elevated blood pressure reading (>120/80) during this emergency department visit, the need to transfer to another facility. Response to treatment: There is no appreciated change of the patient's symptoms at this time. 10:48 ED course: dr. Parsons. ma2 05/19 10:08 Order name: COVID-19 SARS RT PCR (Document "Date of Onset" if Symptomatic) ss Administered Medications: No medications were administered Disposition Summary: 05/19/21 09:51 Transfer Ordered Transfer Location: Other Acute Care Facility ma2 Reason: Higher level of care ma2 Condition: Stable ma2 Problem: new ma2 Symptoms: are unchanged ma2 Accepting Physician: ENT Dr. Parsons(05/19/21 11:43) ss Diagnosis - Tracheostomy complications - trachoesophageal prosthesis complication ma2 Forms: - Medication Reconciliation Form ma2 - SBAR form ma2 Signatures: Dispatcher [employer] EDMckenzie Montano RN RN ss Miguel Yi MD MD ma2 Merry Hawley RN RN vg1 Corrections: (The following items were deleted from the chart) 09:51 09:45 Differential Diagnosis: Bronchitis Upper Respiratory Infection Sinusitis ma2 Pharyngitis Other Tracheoesophageal prosthesis fell, patient inserted a Workman catheter, to keep stoma alive. Patient requested ENT to place tracheoesophageal prosthesis back in place, we do not have ENT pilot control operator today. Patient requests transfer to [facility]. Will transfer patient to [facility], based on patient preference. ma2 10:49 09:51 ENT ma2 ma2 11:43 10:[address] Parsons ma2
[2021-05-19 11:56] VITALS: O2SAT 97
[2021-05-19 11:58] VITALS: BP 114/65; TEMP 98.2
== END 2021-05-19 11:43 ==
LOC: ER 09:13
DX: T85.698A Other mechanical complication of other specified internal prosthetic devices, implants and grafts, initial encounter (principal); E11.9 Type 2 diabetes mellitus without complications; Z20.822 Contact with and (suspected) exposure to COVID-19; Z91.048 Other nonmedicinal substance allergy status
CPT/HCPCS: 99285; U0003

== ENCOUNTER 2021-08-06 10:38 | Emergency (ER) | payer OTHER ==
--- OUTSIDE RECORDS SUMMARY | 2021-08-06 10:42 | XMS REPORT | Continuity of Care Document ---
:1950 Author Organization [facility] t Address [address] [place] [address] Dr. Pacheco [address] [place] [id number] Care Team Providers Name Role Phone Afsaneh KUMAR, R Primary Care Physician HAYDEE Attending Clinician Unavailable MD Denys HUBBARD Attending Clinician Unavailable JAYA Attending Clinician Unavailable ESVIN Attending Clinician Unavailable DO CHIARA BLUNT Attending Clinician Unavailable MEREDITH Attending Clinician Unavailable Mario KUMAR, L Attending Clinician TIFFANI Attending Clinician Unavailable ZAID Attending Clinician Unavailable AKHIL Attending Clinician Unavailable MD JOVANY Attending Clinician Unavailable Angeles Contreras MD Attending Clinician TERRI Attending Clinician Unavailable Megan Andrew PA-C Attending Clinician Laura RN, A Attending Clinician Unavailable Lefty KUMAR Attending Clinician Jeremy KUMAR Attending Clinician SAIGE Attending Clinician Unavailable HAYDEE Admitting Clinician Unavailable MD Denys HUBBARD Admitting Clinician Unavailable JOSE RAUL Admitting Clinician Unavailable DO CHIARA BLUNT Admitting Clinician Unavailable JOVANY Admitting Clinician Unavailable MD JOVANY Admitting Clinician Unavailable TERRI Admitting Clinician Unavailable Jeremy KUMAR Admitting Clinician Payers Payer Name Policy Type Policy Number Effective Date Expiration Date S ource Problems Condition Condition Condition Status Onset Resolution Last Treating Co mments Source Name Details Category Date Date Treatment Clinician Date Essential Essential Disease Active Uni vers hypertensi hypertensi 5-15 it y of on on 00:00: Medical Branch Near Near Disease Active Univers syncope syncope 5-15 ity of 00:00: Medical Branch Diaphoresi Diaphoresi Disease Active U nivers s s 5-14 ity of 00:00: Medical Branch Oropharyng Oropharyng Disease Active U nivers eal eal 4-21 ity of bleeding bleeding 00:00: Medical Branch Pneumonia Pneumonia Disease Active 2017-06 Uni vers 2-22 ity of 00:00: Medical Branch Vertigo Vertigo Disease Active Univers 6 ity of 00:00: Medical Branch Dizziness Dizziness Disease Active Uni vers and and 11-23 ity [facility] PAF PAF Disease Active Univers (paroxysma (paroxysma 26 it y of l atrial l atrial 00:00: [place] fibrillati fibrillati 00 Me dical on) on) Branch Obesity Obesity Disease Active Univers (BMI (BMI 2-26 ity of 30-39.9) 30-39.9) 00:00: [place] 00 Medical Branch Allergies, Adverse Reactions, Alerts Allergy Allergy Status Severity Reaction(s) Onset Inactive Treating Comm ents Source Name Type Date Date Clinician Codeine Propensi Active GI Other [facility] ty to 11-23 reaction( [place] adverse 00:00: s): of reaction 00 Unknown - Medic in s to See e drug commentsW salty reports allergy Codeine Propensi Active Unknown - Univ ers ty to See comments 11-23 reports ity of adverse 00:00: allergy [place] reaction 00 Medical s Branch Iodine Propensi Active Anaphylaxis [facility]xana ty to 08-20 [place] adverse 00:00: of reaction 00 Medicin s to e drug Latex Propensi Active Rash ADHESIVES [facility] [facility] ty to 08-20 [facility] adverse 00:00: TAPE AND of reaction 00 TEGADERM Medici n s to OK TO USE e substanc e Iodine Propensi Active Anaphylaxis Uni vers ty to 08-20 ity of adverse 00:00: [place] reaction 00 Medical s Branch Latex, Propensi Active Rash 2017-0 Univers Natural ty to 2-26 ity of Rubber adverse 00:00: [place] reaction 00 Medical s Branch Social History Social Habit Start Date Stop Date Quantity Comments Source History of tobacco Cigarette Smoker University of use [facility] [place] Exposure to Not sure University of SARS-CoV-2 (event) [facility] [place] Tobacco use and 2020-03-03 2020-03-03 Never used [facility] Co llege of exposure 00:00:00 00:00:00 Medicine Cigarettes smoked 2020-03-03 2020-03-03 [facility] current (pack per 00:00:00 00:00:00 Medicin e day) - Reported Cigarette 2020-03-03 2020-03-03 [facility] of pack-years 00:00:00 00:00:00 Medicine Alcohol intake 2020-03-03 2020-03-03 Lifetime [facility] Col lege of 00:00:00 00:00:00 non-drinker Medicine (finding) Tobacco Comment 2019-11-19 2019-11-19 quit 1986 [facility] llege of 00:00:00 00:00:00 Medicine Sex [birth year] [facility] Co llege of 00:00:00 00:00:00 Medicine Smoking Status Start Date Stop Date Source Former smoker 2020-03-03 00:00:00 2020-03-03 00:00:00 [facility] ollege of Medicine Medications Ordered Filled Start Stop Current Ordering Indication Dosage Frequency Signature Comments Components Source Medication Medication Date Date Medication? Clinician (SIG) Name Name irbesartan Yes 300mg Take 300 Un [place] 300 mg 7-02 mg by ity of tablet 16:17: mouth at [place] [id number] bedtime. Medical Branch irbesartan Yes 300mg Take 300 Un [place] 300 mg 7-02 mg by ity of tablet 16:17: mouth at [place] [address] bedtime. Medical Branch Phenylephri 2019-06 Yes 10mL Take 10 mL [facility] ne-DM-GG 08-03 by mouth. Judie mayers 5100 17:05: of MG/5ML SYRP 59 Medicin e polyethylen 2019-06 Yes 17g Take 17 g B aylor e glycol -09 by mouth. Judie mayers (GLYCOLAX) 17:05: of 17 GM/SCOOP 59 Medicin [...] 100 [place] ne 9-16 09-17 mcg by [place] (SYNTHROID) 00:00: 04:59 mouth. of 100 MCG 00 :00 Medicin tablet e furosemide 0 Yes [facility] (LASIX) 20 9-09 College MG tablet 18:39: of 48 Medicin e furosemide 2019-0 Yes [facility] (LASIX) 20 9-09 College MG tablet 18:39: of 48 Medicin e amoxicillin 2020- No 1{tbl} Take 1 Tab [place] -clavulanat 7-30 08-07 by mouth Col lege e 00:00: 04:59 two times of (AUGMENTIN) 00 :00 daily for Med icin 875-125 MG 7 days. e per tablet furosemide 2019-0 Yes [place] (LASIX) 20 7-22 College MG tablet 19:53: of 06 Medicin e furosemide 2020-0 Yes [facility] (LASIX) 20 7-22 College MG tablet 19:53: of 06 Medicin e mupirocin 2019-0 Yes Apply to [place] [facility] calcium 7-22 [...] a day. Medicin e furosemide 2020-0 Yes [place] (LASIX) 20 7- College MG tablet 18:46: of 05 Medicin e amoxicillin 2020-0 2020- No 1{tbl} Take 1 Tab [facility] -clavulanat 01-11 by mouth Col lege e 00:00: 04:59 two times of (AUGMENTIN) 00 :00 daily for Med icin 875-125 MG 7 days. e per tablet amoxicillin 2020-0 2020- No 1{tbl} Take 1 Tab [facility] -clavulanat 01-11 by mouth Col lege e 00:00: 04:59 two times of (AUGMENTIN) 00 :00 daily for Med icin 875-125 MG 7 days. e per tablet pantoprazol 2020-0 Yes TK 1 T PO B aylor e 01-09 [facility] (PROTONIX) 00:00: of 40 MG 00 Medicin tablet e pantoprazol 2020-0 Yes TK 1 T PO B aylor e 01-09 [facility] (PROTONIX) 00:00: of 40 MG 00 Medicin tablet e pantoprazol 2020-0 Yes TK 1 T PO B aylor e 01-09 [facility] (PROTONIX) 00:00: of 40 MG 00 Medicin tablet e pantoprazol 2020-0 Yes TK 1 T PO B aylor e 01-09 [facility] (PROTONIX) 00:00: of 40 MG 00 Medicin tablet e furosemide 2020-0 Yes [place] (LASIX) 20 08 College MG tablet 20:41: of 44 Medicin e amiodarone 2020-0 Yes [place] (PACERONE) 5-21 College 200 MG 00:00: of tablet 00 Medicin e rosuvastati 2020-0 Yes TK 1 T PO B aylor n (CRESTOR) 5- QD College 10 MG 00:00: of tablet 00 Medicin e amiodarone 2020-0 Yes [place] (PACERONE) 5-21 College 200 MG 00:00: of tablet 00 Medicin e rosuvastati 2020-0 Yes TK 1 T PO B aylor n (CRESTOR) 5- QD College 10 MG 00:00: of tablet [...] tablet 00 Medicin e amiodarone 2020-0 Yes [facility] (PACERONE) 5-21 College 200 MG 00:00: of [...] 5-21 by mouth. ity of tablet 00:00: [address] rosuvastati 2020-0 Yes 10mg Take 10 mg Univers n 10 mg 5-21 by mouth. ity of tablet 00:00: [address] rivaroxaban 2020-0 Yes 20mg Take 20 mg Univers (XARELTO) 5-15 by mouth ity of 20 mg 14:43: daily. [address] rivaroxaban 2020-0 Yes 20mg Take 20 mg Univers (XARELTO) 5-15 by mouth ity of 20 mg 14:43: daily. [address] levothyroxi 2020-0 Yes 88ug Take 88 [place] roxana ne 5-15 mcg by College (SYNTHROID) 00:00: mouth. of 88 MCG 00 Medicin tablet e levothyroxi 2020-0 Yes 88ug Take 88 [facility] [place] roxana ne 5-15 mcg by College (SYNTHROID) 00:00: mouth. of 88 MCG 00 Medicin tablet e levothyroxi 2020-0 Yes 88ug Take 88 [place] roxana ne 5-15 mcg by College (SYNTHROID) 00:00: mouth. of 88 MCG 00 Medicin tablet e levothyroxi 2020-0 Yes 88ug Take 88 [facility] [place] roxana ne 5-15 mcg by College (SYNTHROID) 00:00: mouth. of 88 MCG 00 Medicin tablet e levothyroxi 2020-0 Yes 88ug Take 88 [place] roxana ne 5-15 mcg by College (SYNTHROID) 00:00: mouth. of 88 MCG 00 Medicin tablet e levothyroxi 2020-0 Yes 88ug Take 88 [place] roxana ne 5-15 mcg by [place] (SYNTHROID) 00:00: mouth. of 88 MCG 00 Medicin tablet e levothyroxi 2020-0 Yes [id number] 88ug Take 1 Univers ne 88 mcg 5-15 tablet by ity o f tablet 00:00: mouth [place] 00 every Medical morning. Branch metoprolol 2020-0 Yes [id number] 12.5mg Take 12.5 Univers succinate 5-15 mg by ity of 25 mg CSpX 00:00: mouth [place] 00 daily. Medical Branch levothyroxi 2020-0 Yes [id number] 88ug Take 1 Univers ne 88 mcg 5-15 tablet by ity o f tablet 00:00: mouth [place] 00 every Medical morning. Branch metoprolol 2020-0 Yes [id number] 12.5mg Take 12.5 Univers succinate 5-15 mg by ity of 25 mg CSpX 00:00: mouth [place] 00 daily. Medical Branch XARELTO 20 2020-0 Yes TK 1 T PO [facility] MG TABS 5-11 [facility] 00:00: of 00 Medicin e XARELTO 20 2020-0 Yes TK 1 T PO Ba [facility] MG TABS 5-11 D [facility] 00:00: of 00 Medicin e XARELTO 20 2020-0 Yes TK 1 T PO Ba [facility] MG TABS 5-11 D [facility] 00:00: of 00 Medicin e XARELTO 20 2020-0 Yes TK 1 T PO Ba [facility] MG TABS 5-11 D [facility] 00:00: of 00 Medicin e XARELTO 20 2020-0 Yes TK 1 T PO Ba [facility]lor MG TABS 5-11 D [facility] 00:00: of 00 Medicin e XARELTO 20 2020-0 Yes TK 1 T PO Ba ylor MG TABS 5-11 D [facility] 00:00: of 00 Medicin e metoprolol 2020-0 [...] of 00 Medicin e irbesartan 2020-0 Yes [facility] (AVAPRO) 3-10 College 300 MG 00:00: of tablet 00 Medicin e amlodipine 2020-0 Yes [place] (NORVASC) 5 3-10 College MG tablet 00:00: of 00 Medicin e irbesartan 2020-0 Yes [place] (AVAPRO) 3-10 College 300 MG 00:00: of tablet 00 Medicin e amlodipine 2020-0 Yes [place] (NORVASC) 5 3-10 College MG tablet 00:00: of 00 Medicin e amlodipine 2020-0 Yes [facility] (NORVASC) 5 3-10 College MG tablet 00:00: of 00 Medicin e irbesartan 2020-0 Yes [facility] (AVAPRO) 3-10 College 300 MG 00:00: of tablet 00 Medicin e irbesartan 2020-0 Yes [place] (AVAPRO) 3-10 College 300 MG 00:00: of tablet 00 Medicin e amlodipine 2020-0 Yes [facility] (NORVASC) 5 3-10 College MG tablet 00:00: of 00 Medicin e irbesartan 2020-0 Yes [facility] (AVAPRO) 3-10 College 300 MG 00:00: of tablet 00 Medicin e amlodipine 2020-0 Yes [place] (NORVASC) 5 3-10 College MG tablet 00:00: of 00 Medicin e irbesartan 2019-0 Yes [place] (AVAPRO) 3-10 College 300 MG 00:00: of tablet 00 Medicin e acetaminoph 2018-06 Yes 1{tbl} 1 Tablet. [place] en-codeine 2-16 College (TYLENOL 00:00: of #3) 300-30 00 Medicin MG per e tablet fluticasone Yes 2{spray 2 Sprays [facility] (FLONASE) 4-23 } by Nasal Colleg e 50 MCG/ACT 00:00: route. of nasal spray 00 Medicin e fluticasone Yes 2{spray 2 Sprays [place] (FLONASE) 4-23 } by Nasal Colleg e 50 MCG/ACT 00:00: route. of nasal spray 00 Medicin e fluticasone Yes 2{spray 2 Sprays [place] (FLONASE) 4-23 } by Nasal Colleg e 50 MCG/ACT 00:00: route. of nasal spray Medicin e fluticasone Yes 2{spray 2 Sprays [facility] (FLONASE) 4-23 } by Nasal Colleg e 50 MCG/ACT 00:00: route. of nasal spray 00 Medicin e fluticasone Yes 2{spray 2 Sprays [place] (FLONASE) 4-23 } by Nasal Colleg e 50 MCG/ACT 00:00: route. of nasal spray Medicin e fluticasone Yes 2{spray 2 Sprays [facility] (FLONASE) 4-23 } by Nasal Colleg e 50 MCG/ACT 00:00: route. of nasal spray 00 Medicin e tramadol Yes 50mg Take 50 mg [facility] (ULTRAM) 50 7-17 by mouth. Col lege MG tablet 00:00: of Medicin e tramadol Yes 50mg Take 50 mg [facility] (ULTRAM) 50 7-17 by mouth. Col lege MG tablet 00:00: of Medicin e tramadol Yes 50mg Take 50 mg [facility] (ULTRAM) 50 7-17 by mouth. Col lege MG tablet 00:00: of Medicin e tramadol 2017-0 Yes 50mg Take 50 mg [facility] (ULTRAM) 50 7-17 by mouth. Col lege MG tablet 00:00: of 00 Medicin e tramadol 2017-0 Yes 50mg Take 50 mg [facility] (ULTRAM) 50 7-17 by mouth. Col lege MG tablet 00:00: of 00 Medicin e tramadol 2017-0 Yes 50mg Take 50 mg [facility] (ULTRAM) 50 7-17 by mouth. Col lege MG tablet 00:00: of 00 Medicin e nitroglycer [address] 1 Uni vers in 0.4 mg 2-28 tablet ity of sublingual 00:00: under the [place] tablet 00 tongue Medical every 5 Branch (five) minutes as needed for Chest pain. nitroglycer 2016-[address] 1 Uni vers in 0.4 mg 2-28 tablet ity of sublingual 00:00: [place] the [place] tablet 00 tongue Medical every 5 Branch (five) minutes as needed for Chest pain. Immunizations Ordered Filled Immunization Date Status Comments Sour e Immunization Name Name Pneumococcal 2016-11-26 Completed [place] o f Polysaccharide, 00:00:00 [facility] ical PPSV23 (PNEUMOVAX) Branch Pneumococcal 2016-11-26 Completed [place] o f Polysaccharide, 00:00:00 [place] Med ical PPSV23 (PNEUMOVAX) Branch Vital Signs Vital Name Observation Time Observation Value Comments Source Systolic blood 2021 13:19:00 134 mm[Hg] [facility] Diastolic blood 2021 13:19:00 83 mm[Hg] [facility] 2021 13:19:00 58 /min Universi ty [facility] Respiratory rate 2021 13:19:00 18 /min [facility] [place] [place] Oxygen saturation in 2021 13:19:00 99 /min [facility] Arterial blood by [facility] Pulse oximetry Branch Body height 2020-06-02 17:03:00 177.8 cm [facility] Body weight 2020-06-02 17:03:00 97.523 kg [facility] BMI 2020-06-02 17:03:00 30.85 kg/m2 [facility] [facility] Systolic blood 2020-03-03 18:39:00 151 mm[Hg] [facility] pressure Medicine Diastolic blood 2020-03-03 18:39:00 72 mm[Hg] [facility] Medicine Heart rate 2020-03-03 18:39:00 47 /min [facility] C ollege of Medicine Body temperature 2020-03-03 18:39:00 36.17 [facility] Body height 2020-03-03 18:39:00 177.8 cm [facility] C ollege of Medicine Body weight 2020-03-03 18:39:00 107.956 kg [facility] C ollege of Medicine BMI 2020-03-03 18:39:00 34.15 kg/m2 [facility] C ollege of Medicine Systolic blood 2020-01-28 18:51:00 134 mm[Hg] [facility] of pressure Medicine Diastolic blood 2020-01-28 18:51:00 73 mm[Hg] [facility] Medicine Heart rate 2020-01-28 18:51:00 50 /min [facility] C ollege of Medicine Body height 2020-01-28 18:51:00 177.8 cm [facility] C ollege of Medicine Body weight 2020-01-28 18:51:00 107.956 kg [facility] ollege of Medicine BMI 2020-01-28 18:51:00 34.15 kg/m2 [facility] C ollege of Medicine Systolic blood 2020-01-14 19:48:00 103 mm[Hg] [facility] of pressure Medicine Diastolic blood 2020-01-14 19:48:00 61 mm[Hg] [facility] Medicine Heart rate 2020-01-14 19:48:00 50 /min [facility] ollege of Medicine Body temperature 2020-01-14 19:48:00 36.89 [facility] Body height 2020-01-14 19:48:00 177.8 cm [facility] C ollege of Medicine Body weight 2020-01-14 19:48:00 107.956 kg [facility] C ollege of Medicine BMI 2020-01-14 19:48:00 34.15 kg/m2 [facility] C ollege of Medicine Systolic blood 2020-01-13 18:45:00 114 mm[Hg] [facility] of pressure Medicine Diastolic blood 2020-01-13 18:45:00 61 mm[Hg] [facility] pressure Medicine Heart rate 2020-01-13 18:45:00 56 /min [facility] ollege of Medicine Body height 2020-01-13 18:45:00 177.8 cm [facility] ollege of Medicine Body weight 2020-01-13 18:45:00 107.956 kg [facility] ollege of Medicine BMI 2020-01-13 18:45:00 34.15 kg/m2 [facility] ollege of Medicine Systolic blood 2019-12-31 20:40:00 120 mm[Hg] [facility] pressure Medicine Diastolic blood 2019-12-31 20:40:00 70 mm[Hg] [facility] pressure Medicine Heart rate 2019-12-31 20:40:00 58 /min [facility] ollege of [facility] Body temperature 2019-12-31 20:40:00 36.33 [facility] Body height 2019-12-31 20:40:00 177.8 cm [facility] ollege of [facility] Body weight 2019-12-31 20:40:00 107.956 kg [facility] ollege of Medicine BMI 2019-12-31 20:40:00 34.15 [facility] Procedures This patient has no known procedures. Plan of Care Planned Activity Planned Date Details Comments Source Future Scheduled Test COLON CANCER SCREENING: [facility] COLONOSCOPY [code = Medicine COLON CANCER SCREENING: COLONOSCOPY] Future Scheduled Test TETANUS SHOT (ADULT) [facility] [code = TETANUS SHOT Medicin e (ADULT)] Future Scheduled Test BMI FOLLOW UP PLAN [facility] [code = BMI FOLLOW UP Medici ne PLAN] Future Scheduled Test HEPATITIS C SCREENING [facility] [code = HEPATITIS C Medicine SCREENING] Future Scheduled Test ZOSTER VACCINE (1 of 2) [facility] [code = ZOSTER VACCINE Medic ine (1 of 2)] Future Scheduled Test MEDICARE AWV (Initial) [facility] [code = MEDICARE AWV Medicin e (Initial)] Future Scheduled Test AAA Screen [code = AAA [facility] Screen] Medicine Future Scheduled Test FALL SCREEN [code = [facility] FALL SCREEN] Medicine Future Scheduled Test FLU VACCINE > 6 MONTHS [facility] [code = FLU VACCINE > 6 Medi cine MONTHS] Future Scheduled Test COLON CANCER SCREENING: [facility] COLONOSCOPY [code = Medicine COLON CANCER SCREENING: COLONOSCOPY] Future Scheduled Test TETANUS SHOT (ADULT) [facility] [code = TETANUS SHOT Medicin e (ADULT)] Future Scheduled Test BMI FOLLOW UP PLAN [facility] [code = BMI FOLLOW UP Medici ne PLAN] Future Scheduled Test HEPATITIS C SCREENING [facility] [code = HEPATITIS C Medicine SCREENING] Future Scheduled Test ZOSTER VACCINE (1 of 2) [facility] [code = ZOSTER VACCINE Medic ine (1 of 2)] Future Scheduled Test MEDICARE AWV (Initial) [facility] [code = MEDICARE AWV Medicin e (Initial)] Future Scheduled Test AAA Screen [code = AAA [facility] Screen] Medicine Future Scheduled Test FALL SCREEN [code = [facility] FALL SCREEN] Medicine Future Scheduled Test FLU VACCINE > 6 MONTHS [facility] [code = FLU VACCINE > 6 Medi cine MONTHS] Future Scheduled Test COLON CANCER SCREENING: [facility] COLONOSCOPY [code = Medicine COLON CANCER SCREENING: COLONOSCOPY] Future Scheduled Test TETANUS SHOT (ADULT) [facility] [code = TETANUS SHOT Medicin e (ADULT)] Future Scheduled Test BMI FOLLOW UP PLAN [facility] [code = BMI FOLLOW UP Medici ne PLAN] Future Scheduled Test HEPATITIS C SCREENING [facility] [code = HEPATITIS C Medicine SCREENING] Future Scheduled Test ZOSTER VACCINE (1 of 2) [facility] [code = ZOSTER VACCINE Medic ine (1 of 2)] Future Scheduled Test MEDICARE AWV (Initial) [facility] [code = MEDICARE AWV Medicin e (Initial)] Future Scheduled Test AAA Screen [code = AAA [facility] Screen] Medicine Future Scheduled Test FALL SCREEN [code = [facility] FALL SCREEN] Medicine Future Scheduled Test FLU VACCINE > 6 MONTHS [facility] [code = FLU VACCINE > 6 Medi cine MONTHS] Future Scheduled Test COLON CANCER SCREENING: [facility] COLONOSCOPY [code = Medicine COLON CANCER SCREENING: COLONOSCOPY] Future Scheduled Test TETANUS SHOT (ADULT) [facility] [code = TETANUS SHOT Medicin e (ADULT)] Future Scheduled Test BMI FOLLOW UP PLAN [facility] [code = BMI FOLLOW UP Medici ne PLAN] Future Scheduled Test HEPATITIS C SCREENING [facility] [code = HEPATITIS C Medicine SCREENING] Future Scheduled Test MEDICARE AWV (Initial) [facility] [code = MEDICARE AWV Medicin e (Initial)] Future Scheduled Test AAA Screen [code = AAA [facility] of Screen] Medicine Future Scheduled Test FALL SCREEN [code = [facility] of FALL SCREEN] Medicine Future Scheduled Test FLU VACCINE > 6 MONTHS [facility] [code = FLU VACCINE > 6 Medi cine MONTHS] Future Scheduled Test COLON CANCER SCREENING: [facility] COLONOSCOPY [code = Medicine COLON CANCER SCREENING: COLONOSCOPY] Future Scheduled Test TETANUS SHOT (ADULT) [facility] [code = TETANUS SHOT Medicin e (ADULT)] Future Scheduled Test BMI FOLLOW UP PLAN [facility] [code = BMI FOLLOW UP Medici ne PLAN] Future Scheduled Test HEPATITIS C SCREENING [facility] [code = HEPATITIS C Medicine SCREENING] Future Scheduled Test MEDICARE AWV (Initial) [facility] [code = MEDICARE AWV Medicin e (Initial)] Future Scheduled Test AAA Screen [code = AAA [facility] of Screen] Medicine Future Scheduled Test FALL SCREEN [code = [facility] of FALL SCREEN] Medicine Future Scheduled Test FLU VACCINE > 6 MONTHS [facility] [code = FLU VACCINE > 6 Medi cine MONTHS] Future Scheduled Test COLON CANCER SCREENING: [facility] COLONOSCOPY [code = Medicine COLON CANCER SCREENING: COLONOSCOPY] Future Scheduled Test TETANUS SHOT (ADULT) [facility] [code = TETANUS SHOT Medicin e (ADULT)] Future Scheduled Test BMI FOLLOW UP PLAN [facility] [code = BMI FOLLOW UP Medici ne PLAN] Future Scheduled Test HEPATITIS C SCREENING [facility] [code = HEPATITIS C Medicine SCREENING] Future Scheduled Test MEDICARE AWV (Initial) [facility] [code = MEDICARE AWV Medicin e (Initial)] Future Scheduled Test AAA Screen [code = AAA [facility] of Screen] Medicine Future Scheduled Test FALL SCREEN [code = [facility] of FALL SCREEN] Medicine Future Scheduled Test FLU VACCINE > 6 MONTHS [facility] [code = FLU VACCINE > 6 Medi cine MONTHS] Encounters Start End Encounter Admission Attending Care Care Encounter Source Date/Time Date/Time Type Type Clinicians Facility Department ID 2021-08-05 2021[facility]08[id number] [place] [facility]:00 00:00:00 JANELL [id number] 2021-07-20 2021-07-20 [id number] [place] [facility]:00 00:00:00 JANLEL [address] 2021-07-122021-07-12 Outpatient MOHYUDDIN, [facility] [id number] [facility] 00:00:00 00:00:00 JANELL [id number] 2021-06-27 2021-06-27 Outpatient MOHYUDDIN, [facility] [id number] [facility] 00:00:00 00:00:00 JANELL [address] 2021-06-23 2021-06-23 Outpatient MOHYUDDIN, H 021 2100 [id number] [place] 00:00:00 00:00:00 JANELL [address] 2021-06-20 2021-06-20 Outpatient MOHYUDDIN, [facility] 2100 [id number] [place] 00:00:00 00:00:00 JANELL [address] 2021-06-10 2021-06-10 [facility] 2100 [id number] [place] 00:00:00 00:00:00 JANELL [address] 2021-06-01 2021-06-01 Outpatient MOHYUDDIN, [facility] 2100 [id number] [place] 00:00:00 00:00:00 JANELL [address] 2021-06-01 2021-06-01 Outpatient CUBB, [facility] [id number] [place] 00:00:00 00:00:00 EREN [address] 2021-06-01 2021-06-01 Outpatient CUBB, [facility] [id number] [place] 00:00:00 00:00:00 EREN [address] 2021-05-24 2021-05-25 Outpatient MCALLISTER, [facility] 672 [id number] [place] 00:00:00 00:00:00 CRICKET [address] 2021-05-24 2021-05-24 Outpatient CUBB, [facility] [id number] [place] 00:00:00 00:00:00 EREN [address] 2021-05-24 2021-05-24 Outpatient MOHYUDDIN, [facility] 2100 [id number] [place] 00:00:00 00:00:00 JANELL [address] 2021-05-19 2021-05-19 Emergency HARPER, [facility] 064 [id number] [place] 00:00:00 00:00:00 EVE [address] 2021 2021 Office Mario [facility] [id number] [facility] 08:08:45 09:17:45 Visit [facility] [id number] it KirstinFARIDA 4.2.7.2.686 Govind as OSORIO?BLEA [id number] [address] MEDICAL OFFICE BUILDING 2021-02-03 2021-02-03 Outpatient MOHYUDDIN, [facility] 2100 [id number] [place] 00:00:00 00:00:00 JANELL 707 [facility] 2020-12-22 2020-12-22 Outpatient GRACEYUDDIN, [facility] 2100 [id number] [place] 00:00:00 00:00:00 JANELL 057 [facility] 2020-12-22 2020-12-22 Outpatient GRACEYUDKHUSHI, [facility] 2100 [id number] [place] 00:00:00 00:00:00 JANELL 882 [facility] 2020-12-07 2020-12-07 Outpatient MOHYUDDIN, [facility] 2100 [id number] [place] 00:00:00 00:00:00 JANELL 610 [facility] 2020-12-06 2020-12-06 Outpatient CUBB, [facility] [id number] [place] 00:00:00 00:00:00 EREN 469 [facility] 2020-11-08 2020-11-08 Outpatient GRACEYUDKHUSHI, [facility] 2100 [id number] [place] 00:00:00 00:00:00 JANELL 743 [facility] 2020-11-08 2020-11-08 Outpatient MOHYUDDIN, [facility] 2100 [id number] [place] 00:00:00 00:00:00 JANELL 206 [facility] 2020-11-02 2020-11-02 Outpatient MOHYUDDIN, [facility] 2100 [id number] [place] 00:00:00 00:00:00 JANELL 990 [facility] 2020-11-01 2020-11-01 Outpatient MOHYUDDIN, [facility] 2100 [id number] [place] 00:00:00 00:00:00 JANELL 069 [facility] 2020-10-21 2020-10-21 Outpatient MOHYUDDIN, [facility] 2100 [id number] [place] 00:00:00 00:00:00 JANELL [address] 2020-10-13 2020-10-13 Outpatient MEAGANUDKHUSHI, [facility] 2100 [id number] [place] 00:00:00 00:00:00 JANELL [address] 2020-09-16 2020-09-16 Outpatient MEAGANUDKHUSHI, [facility] 2100 [id number] [place] 00:00:00 00:00:00 JANELL [address] 2020-08-22 2020-08-22 Outpatient TIFFANI, [facility] [id number] [place] 00:00:00 00:00:[address] 2020-08-04 2020-08-04 Outpatient MEAGANUDDIN, [facility] 2100 [id number] [place] 00:00:00 00:00:00 JANELL 662 [facility] 2020-08-01 2020-08-01 Outpatient [facility] [id number] [place] 00:00:00 00:00:[address] 2020-07-28 2020-07-28 Outpatient MEAGANUDKHUSHI, [facility] 2100 [id number] [place] 00:00:00 00:00:00 JANELL [address] 2020-07-28 2020-07-28 Outpatient MEAGANUDDIN, [facility] 2100 [id number] [place] 00:00:00 00:00:00 JANELL [address] 2020-07-28 2020-07-28 Outpatient MEAGANUDKHUSHI, [facility] 2100 [id number] [place] 00:00:00 00:00:00 JANELL [address] 2020-07-21 2020-07-21 Outpatient MEAGANUDDIN, [facility] 2100 [id number] [place] 00:00:00 00:00:00 JANELL 135 [facility] 2020-07-19 2020-07-19 Outpatient MEAGANUDDIN, [facility] 2100 [id number] [place] 00:00:00 00:00:00 JANELL [address] 2020-07-09 2020-07-09 Outpatient MEAGANUDDIN, [place] [address] 2100 [id number] [place] 00:00:00 00:00:00 JANELL [address] 2020-07-05 2020-07-05 Outpatient MOHYUDKHUSHI, [facility] 2100 [id number] [place] 00:00:00 00:00:00 JANELL [address] 2020-07-05 2020-07-05 Outpatient CUBB, [facility] [id number] [place] 00:00:00 00:00:00 EREN [address] 2020-06-24 2020-06-24 Outpatient ZAID, EREN [facility] [id number] [place] 00:00:00 00:00:[address] 2020-06-24 2020-06-24 Outpatient ZAID, EREN [facility] [id number] [place] 00:00:00 00:00:[address] 2020-06-16 2020-06-16 Outpatient MEAGANUDKHUSHI, [facility] 2100 [id number] [place] 00:00:00 00:00:00 JANELL [address] 2020-06-16 2020-06-16 Outpatient HAYDEE, [facility] 2100 [id number] [place] 00:00:00 00:00:00 JANELL [address] 2020-06-09 2020-06-10 Inpatient AKHIL, [facility] 064 [id number] [place] 00:00:00 00:00:00 KIMI [address] 2020-06-09 2020-06-09 Outpatient CUBB, [facility] [id number] [place] 00:00:00 00:00:[address] EREN [address] 2020-06-02 2020-06-02 Office ContrerasCECILYFrida [id number] [facility] 10:33:13 13:28:01 Visit Yogi Reynoso AMBULATOR [id number] College Y 0.2.7.2.686 [id number] Medi truman 800 e 2020-05-26 2020-05-26 Outpatient HAYDEE, [facility] 2100 [id number] [place] 00:00:00 00:00:00 JANELL [address] 2020-05-26 2020-05-26 Outpatient HAYDEE [facility] 2100 [id number] [place] 00:00:00 00:00:00 JANELL [address] 2020-05-12 2020-05-12 Outpatient MEAGANUDKHUSHI [facility] 2100 [id number] [place] 00:00:00 00:00:00 JANELL [address] 2020-05-12 2020-05-12 Outpatient HAYDEE [facility] 2100 [id number] [place] 00:00:00 00:00:00 JANELL [address] 2020-05-03 2020-05-03 Outpatient AHYDEE [facility] [id number] [place] 00:00:00 00:00:00 JANELL [address] 2020-04-07 2020-04-07 Outpatient HAYDEE [facility] 2100 [id number] [place] 00:00:00 00:00:00 JANELL [address] 2020-04-07 2020-04-07 Outpatient HYADEE [facility] 2100 [id number] [place] 00:00:00 00:00:00 JANELL [address] 2020-03-24 2020-03-24 Outpatient HAYDEE [facility] [id number] [place] 00:00:00 00:00:00 JANELL [address] 2020-03-16 2020 Outpatient FIDE MURRAY [facility] 021 [id number] [place] 00:00:00 00:00:[address] 2020-03-11 2020-03-11 Outpatient HAYDEE [facility] [id number] [place] 00:00:00 00:00:00 JANELL [address] 2020-03-03 2020-03-03 Office ALICE Contreras [id number] [facility] 13:12:23 14:23:40 Visit Yogi Reynoso AMBULATOR 350.1.13.21 College Y 0.2.7.2.686 [id number] Medi truman 800 e 2020-02-24 2020-02-24 Outpatient CUBB, [facility] [id number] [place] 00:00:00 00:00:00 EREN [address] 2020-02-13 2020-02-13 Outpatient MEAGANUDKHUSHI, [facility] 2100 [id number] [place] 00:00:00 00:00:00 JANELL [address] 2020-02-13 2020-02-13 Outpatient HAYDEE [facility] 2100 [id number] [place] 00:00:00 00:00:00 JANELL [address] 2020-01-28 2020-01-28 Office Ben CECILY 1.2.840.114 [id number] [facility] 13:31:18 14:19:42 Visit Yogi Angeles AMBULATOR 350.1.13.21 College Y 0.2.7.2.686 of [id number] Medi truman 800 e 2020-01-16 2020-01-16 [facility] 2100 [id number] [place] 00:00:00 00:00:00 JANELL [address] 2020-01-15 2020-01-15 [facility] 2100 [id number] [place] 00:00:00 00:00:00 JANELL [address] 2020-01-14 2020-01-14 Office CECILY Contreras 1.2.840.114 [id number] [facility] 14:27:19 15:15:13 Visit Yogi [place] AMBULATOR 350.1.13.21 College Y 0.2.7.2.686 of [id number] Medi truman 800 e 2020-01-13 2020-01-13 Office ALICE Andrew 1.2.840.114 [id number] [facility] 13:20:52 14:16:08 Visit Sanjuana AMBULATOR 350.1.13.21 College Megan Y 0.2.7.2.686 of [id number] Medi truman 800 e 2020-01-02 2020-01-02 [facility] 2100 [id number] [place] 00:00:00 00:00:00 JANELL [address] 2020-01-02 2020-01-02 [facility] 2100 [id number] [place] 00:00:00 00:00:00 JANELL [address] 2020-01-02 2020-01-02 [facility] 2100 [id number] [place] 00:00:00 00:00:00 JANELL [address] 2019-12-31 2019-12-31 Office [facility] 1.2.840.114 [id number] [facility] 14:40:23 16:33:41 Visit Yogi [place] AMBULATOR 350.1.13.21 College Y 0.2.7.2.686 of [id number] Medi truman 800 e 2019-12-30 2019-12-30 [facility] 2100 [id number] [place] 00:00:00 00:00:00 JANELL [address] 2019-12-09 2019-12-16 [facility] 006 [id number] [place] 00:00:00 00:00:00 JANELL [address] 2019-12-05 2019-12-05 [facility] 2100 [id number] [place] 00:00:00 00:00:00 JANELL [address] 2019-12-03 2019-12-03 [facility] 2100 [id number] [place] 00:00:00 00:00:00 JANELL [address] 2019-12-03 2019-12-03 [facility]patient [facility] 2100 [id number] [place] 00:00:00 00:00:00 JANELL [address] 2019-11-25 2019-11-25 Outpatient [facility] 021 [id number] [id number] [place] 00:00:00 00:00:00 JANELL [address] 2019-11-18 2019-11-18 Outpatient [facility] 2100 [id number] [place] 00:00:00 00:00:00 JANELL [address] 2019-11-18 2019-11-18 Outpatient [facility] 2100 [id number] [place] 00:00:00 00:00:00 JANELL [address] 2019-11-18 2019-11-18 [facility] 2100 [id number] [place] 00:00:00 00:00:00 JANELL [address] 2019-11-12 2019-11-12 [facility] 2100 [id number] [place] 00:00:00 00:00:00 JANELL [address] 2019-11-10 2019-11-10 Transition Alirio Sanchez 1.2.840.114 [id number] 00:00:00 00:00:00 of Care José Miguel Arana 350.1.13.10 Jeremias 4.2.7.2.686 [id number] [facility] 2019-11-06 2019-11-07 Emergency Sherwin Olea [facility] 1.2.840. 114 [id number] 13:35:59 14:27:00 Sina Luna 350.1.13.10 [place] 4.2.7.2.686 [place] [id number] 2019-07-21 2019-07-21 Outpatient SAIGE [facility] [id number] [place] 00:00:00 00:00:00 EDWARD [address] 2019-07-21 2019-07-21 Outpatient SAIGE [facility] [id number] [place] 00:00:00 00:00:00 EDWARD [address] 2019-03-10 2019-03-10 Outpatient SAIGE [facility] [id number] [place] 00:00:00 00:00:00 EDWARD [address] Results Test Description Test Time Test Comments Results Result Comments Source SARS-CoV-2 (COVID-19) RNA [Presence] in Respiratory sp ecimen by 2021-06-20 17:50:42 PRITI with probe detection Test Item Value Reference Range Interpretation Comme nts SARS-CoV-2 (COVID-19) RNA [Presence] in Respiratory Not detected No t-Detected specimen by PRITI with probe detection (test code = 33659-1) Whether patient is employed in a healthcare setting (test code = 20728-7) Whether the patient has symptoms related to condition of interest (test code = 90969-1) Patient was hospitalized because of this condition (test code = 38167-2) Whether the patient was admitted to intensive care unit (ICU) for condition of interest (test code = 96391-0) Whether patient resides in a congregate care setting (test code = 22746-7) SARS-CoV-2 (COVID-19) RNA [Presence] in Respiratory specimen by PRITI with probe [id number] 20:28:59 Test Item Value Reference Range Interpretation Comments SARS-CoV-2 (COVID-19) RNA Not detected Not-Detected [Presence] in Respiratory specimen by PRITI with probe detection (test code = 25770-2) Whether patient is employed in a healthcare setting (test code = 84174-3) Whether the patient has symptoms related to condition of interest (test code = 88224-7) Patient was hospitalized because of this condition (test code = 54918-0) Whether the patient was admitted to intensive care unit (ICU) for condition of interest (test code = 51766-0) Whether patient resides in a congregate care setting (test code = 96541-9) SARS-CoV-2 (COVID-19) RNA [Presence] in Respiratory specimen by PRITI with probe [id number] 20:50:39 Test Item Value Reference Range Interpretation Comments SARS-CoV-2 (COVID-19) RNA Not detected Not-Detected [Presence] in Respiratory specimen by PRITI with probe detection (test code = 26685-8) SARS-CoV-2 (COVID-19) RNA [Presence] in Respiratory specimen by PRITI with probe [id number] 05:42:16 Test Item Value Reference Range Interpretation Comments SARS-CoV-2 (COVID-19) RNA Not detected Not-Detected [Presence] in Respiratory specimen by PRITI with probe detection (test code = 51857-8) SARS-CoV-2 (COVID-19) RNA [Presence] in Respiratory specimen by PRITI with probe [id number] 17:41:12 Test Item Value Reference Range Interpretation Comments SARS-CoV-2 (COVID-19) RNA Not detected Not-Detected [Presence] in Respiratory specimen by PRITI with probe detection (test code = 11340-0) SARS coronavirus 2 RNA [Presence] in Respiratory specimen by PRITI with probe [id number] 17:42:36 Test Item Value Reference Range Interpretation Comments SARS coronavirus 2 RNA Not detected Not-Detected [Presence] in Respiratory specimen by PRITI with probe detection (test code = 73329-4)
--- NOTE | 2021-08-06 12:39 | RAD REPORT ---
EXAM DESCRIPTION: RAD - Chest Single View - 08/06/2021 12:31 pm CLINICAL HISTORY: Cough;Congestion COMPARISON: Chest Pa And Lat (2 Views) dated 06/09/2019; Chest Pa And Lat (2 Views) dated 08/14/2016 FINDINGS: Lines: None. Lungs: No evidence of edema or pneumonia. Pleural: No significant pleural effusions or pneumothorax. Cardiac: The heart size is within normal limits. Bones: No acute fractures. Other: IMPRESSION: No acute cardiopulmonary disease.
--- NOTE | 2021-08-06 13:52 | RAD REPORT ---
EXAM DESCRIPTION: CT - Soft Tissue Neck Wo Contr CLINICAL HISTORY: Throat discomfort COMPARISON: <Comparisons> TECHNIQUE All CT scans are performed using dose optimization technique as appropriate and may includ e automated exposure control or mA/KV adjustment according to patient size. FINDINGS: Status post laryngectomy with free flap reconstruction. A tracheostomy is present. The pos ition of the tracheostomy could be compressing the esophagus. No foreign bodies are identified. No ly mphadenopathy. Partially absent thyroid. Multilevel degenerative changes are present in the spine. IMPRESSION: No definite findings to explain dysphagia. The tracheostomy positioning is such that it could be compressing the esophagus but it may not be clinical significance.
--- NOTE | 2021-08-06 14:17 | ER ---
Nurse's Notes [facility] Name: Sierra Valdes Age: 71 yrs Sex: Male : 1950 Arrival Date: 08/06/2021 Time: 10:39 Bed 16 Private MD: Diagnosis: Acute bronchitis, unspecified;Bronchitis status post ENT procedure with Larynex Presentation: 08/06 10:48 Chief complaint: Spouse and/or significant other states: Pt hx of laryngectomy, had ph prosthetic replaced yesterday and provider stated that he had " a lot of thick mucus." No testing was done at that time. reports that pt has had cough, SOB and thick green/yellow mucus. Denies fever, VSS in triage. Coronavirus screen: congestion, cough unrelated to allergies, shortness of breath, Client presents with at least one sign or symptom that may indicate coronavirus-19. Standard/surgical mask placed on the client. Provider contacted for isolation considerations. Ebola Screen: No symptoms or risks identified at this time. Initial Sepsis Screen: Does the patient meet any 2 criteria? No. Patient's initial sepsis screen is negative. Does the patient have a suspected source of infection? Yes: Productive cough/pneumonia. Risk Assessment: Do you want to hurt yourself or someone else? Patient reports no desire to harm self or others. Onset of symptoms was August 06, 2021. 10:48 Method Of Arrival: Ambulatory ph 10:48 Acuity: LEYDI 3 ph Historical: - Allergies: 10:55 Iodine; ph 10:56 Latex, Natural Rubber; ph - PMHx: 10:55 Atrial fibrillation; diabetes mellitus; Hypercholesterolemia; ph - PSHx: 10:55 Laryngectomy; ph - Immunization history:: Client reports receiving the 2nd dose of the Covid vaccine. - Social history:: Smoking status: Patient/guardian denies using tobacco, the patient reports quitting approximately 18 years ago. Screenin:04 Abuse screen: Denies threats or abuse. Denies injuries from another. Nutritional ic1 screening: No deficits noted. Tuberculosis screening: No symptoms or risk factors identified. Fall Risk None identified. Assessment: 11:04 General: Appears in no apparent distress. comfortable, Behavior is calm, cooperative. ic1 Pain: Denies pain. Neuro: Level of Consciousness is awake, alert, obeys commands, Oriented to person, place, time, situation. Cardiovascular: No deficits noted. Cardiovascular: Denies chest pain. Respiratory: Airway is patent Respiratory effort is even, unlabored, Pt reports yellow-blood tinged mucus coming from trachea and cough. GI: No deficits noted. : No deficits noted. EENT: No deficits noted. Derm: No deficits noted. Musculoskeletal: No deficits noted. Vital Signs: 10:48 BP 123 / 64; Pulse 60; Resp 20; Temp 98.4; Pulse Ox 98% on R/A; ph 11:04 Resp 18; Pulse Ox 99% on R/A; ic1 12:02 BP 120 / 62; Pulse 54; Resp 18; Pulse Ox 94% on R/A; ic1 13:10 BP 115 / 59; Pulse 55; Resp 16; Pulse Ox 95% on R/A; ic1 14:42 BP 105 / 62; Pulse 57; Resp 16; Pulse Ox 100% on R/A; ic1 ED Course: 10:39 Patient arrived in ED. rg4 10:40 David Dillard MD is Attending Physician. kdr 10:55 Triage completed. ph 10:55 Arm band placed on Patient placed in an exam room. ph 11:04 Myrtle Cabral, RN is Primary Nurse. ic1 11:04 Patient has correct armband on for positive identification. Bed in low position. Call ic1 light in reach. Side rails up X2. Adult w/ patient. 11:04 No provider procedures requiring assistance completed. ic1 12:31 CXR XRAY In Process Unspecified. EDMS 13:02 Inserted saline lock: 20 gauge in left antecubital area, using aseptic technique. Blood ic1 collected. 13:26 Soft Tissue Neck Wo Contr In Process Unspecified. EDMS 14:43 IV discontinued, intact, bleeding controlled, No redness/swelling at site. Pressure ic1 dressing applied. Administered Medications: 14:44 Not Given (pt d/c before administration ): Augmentin (Amoxicillin-Clavulanate) 875 mg ic1 PO once Outcome: 14:17 Discharge ordered by . kdr 14:43 Discharged to home ambulatory, with significant other. ic1 14:43 Condition: stable 14:43 Discharge instructions given to patient, Instructed on discharge instructions, follow up and referral plans. Demonstrated understanding of instructions, follow-up care, medications, Prescriptions given X 1. 14:44 Patient left the ED. ic1 Signatures: Dispatcher [employer] EDMS David Dillard MD MD kdr Hall, Patricia, RN RN Kary Hawley Iesha, RN RN ic1
--- NOTE | 2021-08-06 14:17 | EDPHYS ---
Physician Documentation [facility] Name: Sierra Valdes Age: 71 yrs Sex: Male : 1950 Arrival Date: 08/06/2021 Time: 10:39 Bed 16 Private MD: ED Physician David Dillard HPI: 08/06 11:50 This 71 yrs old Male presents to ER via Ambulatory with complaints of Breathing kdr Difficulty. 11:50 The patient has shortness of breath at rest, with light activity. Onset: The kdr symptoms/episode began/occurred gradually, 3 day(s) ago. Duration: The symptoms are intermittent, Associated with talking and deep breathing. The patient's shortness of breath is aggravated by coughing, talking. Associated signs and symptoms: Pertinent positives: productive cough, Pertinent negatives: chest pain, dizziness, fever, hemoptysis, nausea, numbness in extremities, visual changes. Severity of symptoms: At their worst the symptoms were mild moderate just prior to arrival, in the emergency department the symptoms have improved mildly. The patient has not experienced similar symptoms in the past. The patient has been recently seen by a physician: the patient's primary care provider, an ENT specialist. Patient recently had a device inserted in his Larynex to facilitate speaking. Prior to that he was having some difficulty speaking and this has become worse. He is also had some mild secretions, phlegm with a yellow-green tinge. He denies fever. Historical: - Allergies: 10:55 Iodine; ph 10:56 Latex, Natural Rubber; ph - PMHx: 10:55 Atrial fibrillation; diabetes mellitus; Hypercholesterolemia; ph - PSHx: 10:55 Laryngectomy; ph - Immunization history:: Client reports receiving the 2nd dose of the Covid vaccine. - Social history:: Smoking status: Patient/guardian denies using tobacco, the patient reports quitting approximately 18 years ago. ROS: 11:50 Constitutional: Negative for fever, chills, and weight loss, Eyes: Negative for injury, kdr pain, redness, and discharge, Neck: Negative for injury, pain, and swelling, there is an obvious trach cuff present and appears to be in good condition. Cardiovascular: Negative for chest pain, palpitations, and edema, Respiratory: Negative for shortness of breath, cough, wheezing, and pleuritic chest pain, Abdomen/GI: Negative for abdominal pain, nausea, vomiting, diarrhea, and constipation, Back: Negative for injury and pain, : Negative for injury, bleeding, discharge, and swelling, MS/Extremity: Negative for injury and deformity, Skin: Negative for injury, rash, and discoloration, Neuro: Negative for headache, weakness, numbness, tingling, and seizure activity. Psych: Negative for depression, anxiety, suicide ideation, homicidal ideation, and hallucinations, Allergy/Immunology: Negative for hives, rash, and allergies, Endocrine: Negative for neck swelling, polydipsia, polyuria, polyphagia, and marked weight changes, Hematologic/Lymphatic: Negative for swollen nodes, abnormal bleeding, and unusual bruising. Exam: 11:50 Constitutional: This is a well developed, well nourished patient who is awake, alert, kdr and in no acute distress. Head/Face: Normocephalic, atraumatic. Eyes: Pupils equal round and reactive to light, extra-ocular motions intact. Lids and lashes normal. Conjunctiva and sclera are non-icteric and not injected. Cornea within normal limits. Periorbital areas with no swelling, redness, or edema. Chest/axilla: Normal chest wall appearance and motion. Nontender with no deformity. No lesions are appreciated. Cardiovascular: Regular rate and rhythm with a normal S1 and S2. No gallops, murmurs, or rubs. Normal PMI, no JVD. No pulse deficits. Respiratory: Lungs have equal breath sounds bilaterally, clear to auscultation and percussion. No rales, rhonchi or wheezes noted. No increased work of breathing, no retractions or nasal flaring. Abdomen/GI: Soft, non-tender, with normal bowel sounds. No distension or tympany. No guarding or rebound. No evidence of tenderness throughout. Back: No spinal tenderness. No costovertebral tenderness. Full range of motion. Skin: Warm, dry with normal turgor. Normal color with no rashes, no lesions, and no evidence of cellulitis. MS/ Extremity: Pulses equal, no cyanosis. Neurovascular intact. Full, normal range of motion. Neuro: Awake and alert, GCS 15, oriented to person, place, time, and situation. Cranial nerves II-XII grossly intact. Motor strength 5/5 in all extremities. Sensory grossly intact. Cerebellar exam normal. Normal gait. 11:50 Neck: The patient stoma appears to be in good condition without any obvious secretions or bleeding. There is a exterior device which appears to be in good condition and there is no obvious poor management of the stoma and the exterior device. Vital Signs: 10:48 BP 123 / 64; Pulse 60; Resp 20; Temp 98.4; Pulse Ox 98% on R/A; ph 11:04 Resp 18; Pulse Ox 99% on R/A; ic1 12:02 BP 120 / 62; Pulse 54; Resp 18; Pulse Ox 94% on R/A; ic1 13:10 BP 115 / 59; Pulse 55; Resp 16; Pulse Ox 95% on R/A; ic1 14:42 BP 105 / 62; Pulse 57; Resp 16; Pulse Ox 100% on R/A; ic1 MDM: 11:50 Data reviewed: vital signs, nurses notes, radiologic studies. Counseling: I had a kdr detailed discussion with the patient and/or guardian regarding: the historical points, exam findings, and any diagnostic results supporting the discharge/admit diagnosis, radiology results, the need for outpatient follow up. 14:17 Patient medically screened. kdr 08/06 11:33 Order name: CXR XRAY; Complete Time: 12:46 kdr 08/06 13:00 Order name: Soft Tissue Neck Wo Contr; Complete Time: 14:08 EDMS Administered Medications: 14:44 Not Given (pt d/c before administration ): Augmentin (Amoxicillin-Clavulanate) 875 mg ic1 PO once Disposition Summary: 08/06/21 14:17 Discharge Ordered Location: Home kdr Problem: an acute exacerbation kdr Symptoms: have improved kdr Condition: Stable kdr Diagnosis - Acute bronchitis, unspecified kdr - Bronchitis status post ENT procedure with Larynex kdr Followup: kdr - With: Private Physician - When: 2 - 3 days - Reason: If symptoms return, Further diagnostic work-up, Recheck today's complaints, Continuance of care, Re-evaluation by your physician Discharge Instructions: - Discharge Summary Sheet kdr - Acute Bronchitis, Adult kdr Forms: - Medication Reconciliation Form kdr - Thank You Letter kdr - Antibiotic Education kdr Prescriptions: - Augmentin 875-125 mg Oral Tablet - take 1 tablet by ORAL route every 12 hours for 10 days; 20 tablet; Refills: 0, kdr Product Selection Permitted Signatures: Dispatcher [employer] EDMS David Dillard MD MD kdr Hall, Patricia RN RN Myrtle Cabral RN ic1 Corrections: (The following items were deleted from the chart) 13:00 13:00 Soft Tissue Neck W/Contr+[id number].BRZ ordered. EDMS EDMS
[2021-08-06 14:49] VITALS: TEMP 98.4
[2021-08-06 14:54] VITALS: BP 105/62; O2SAT 100
== END 2021-08-06 14:44 | disposition home or self-care (01) ==
LOC: ER 10:38
DX: J20.9 Acute bronchitis, unspecified (principal); Z98.890 Other specified postprocedural states; Z91.040 Latex allergy status; Z91.048 Other nonmedicinal substance allergy status
CPT/HCPCS: 70490; 71045; 99284

== ENCOUNTER 2022-12-31 10:53 | Emergency (ER) | payer OTHER ==
--- OUTSIDE RECORDS SUMMARY | 2022-12-31 10:58 | XMS REPORT | Continuity of Care Document ---
:1950 Author Organization [facility] [place] t Address [address] [place] [address] [place] [address] Care Team Providers Name Role Phone MARQUITAJOSHVÍCTOR DAY Primary Care Physician Unavailable Karmen Berg MD Attending Clinician Janell Hubbard MD Attending Clinician Jazz Mcnulyt MA Attending Clinician Unavailable Pooja Hays MA Attending Clinician Unavailable Eliezer Mcduffie Attending Clinician Unavailable Rashmi [facility] TECHNIC[facility], Yin Garcia Attending Clinician Unavailable Dalia Norman MA Attending Clinician Unavailable DEVIN SUH Attending Clinician Unavailable NA MORRIS Attending Clinician Unavailable Na Le S Attending Clinician JEAN OLEA Attending Clinician Unavailable Jean Olea MD Attending Clinician Doctor Unassigned, [place] Attending Clinician Unavailable Elder Silva Attending Clinician Devin Suh MD Attending Clinician [place], [facility] Attending Clinician Unavailable ELDER ALEJANDRO Attending Clinician Unavailable Laura PETE, José Miguel Dahl Attending Clinician Unavailable JOVANY REGALADO Attending Clinician Unavailable Nara ESPINOZAP, Carlos B Attending Clinician Jovany Regalado MD Attending Clinician Norma Merino MD Attending Clinician MD JANELL HUBBARD Attending Clinician Unavailable CRICKET MCALLISTER Attending Clinician Unavailable DO KURT BLUNT Attending Clinician Unavailable EVE HARPER Attending Clinician Unavailable Loan Mena NP Attending Clinician LOAN MENA Attending Clinician Unavailable MJ NIXON Attending Clinician Unavailable KARMEN MAR Attending Clinician Unavailable KIMI LANDAVERDE Attending Clinician Unavailable MD GALEN MANZO Attending Clinician Unavailable FIDE MURRAY Attending Clinician Unavailable Steven Maradiaga MD Attending Clinician STEVEN MARADIAGA Attending Clinician Unavailable GRISELDA MOULTON Attending Clinician Unavailable NA MORRIS Admitting Clinician Unavailable JEAN OLEA Admitting Clinician Unavailable JANELL HUBBARD Admitting Clinician Unavailable NORMA MERINO Admitting Clinician Unavailable Norma Merino MD Admitting Clinician MD JANELL HUBBARD Admitting Clinician Unavailable KURT BLUNT Admitting Clinician Unavailable DO KURT BLUNT Admitting Clinician Unavailable GALEN MANZO Admitting Clinician Unavailable MD GALEN MANZO Admitting Clinician Unavailable FIDE MURRAY Admitting Clinician Unavailable Steven Maradiaga MD Admitting Clinician STEVEN MARADIAGA Admitting Clinician Unavailable Payers Payer Name Policy Type Policy Number Effective Date Expiration Date [employer] [place] [id number] 2020 00:00:00 [employer] ADV CHOICE PPO Problems Condition Condition Condition Status Onset Resolution Last Treating Co mments Source Name Details Category Date Date Treatment Clinician Date Dysphagia, Dysphagia, Disease Active M ethodi unspecifie unspecifie 4-08 st d d 00:00: Hospita 00 l Cough in Cough in Disease Active Metho di adult adult 2- st 00:00: Hospita 00 l Food Food Disease Active Methodi impaction impaction 2-20 st of of 00:00: Hospita esophagus esophagus 00 l Increased Increased Disease Active Overview: Methodi oropharyng oropharyng 2-[address] eal eal 00:00: g of this Hospita secretions secretions 00 note l might be different from the original. Formattin g of this note might be different from the original. 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 00:00: Hospita carcinoma carcinoma 00 l Essential Essential Disease Active Met hodi hypertensi hypertensi 5-15 st on on 00:00: Hospita 00 l Near Near Disease Active Methodi syncope syncope 5-15 st 00:00: Hospita 00 l Diaphoresi Diaphoresi Disease Active 2019- M ethodi s s 5-14 st 00:00: Hospita 00 l Oropharyng Oropharyng Disease Active 2018-0 M ethodi eal eal 4-21 st bleeding bleeding 00:00: Hospit a 00 l Pneumonia Pneumonia Disease Active 2017-06 Met hodi 2-22 st 00:00: Hospita 00 l Larynx Larynx Disease Active 2017-06 Overview: Method i cancer cancer 2-[address] 00:00: g of this Hospita 00 note l might be different from the original. 01/13/2020 : Head and Neck Tumor BoardDx: T3N0M0 SqCCa R larynx/kang bglottisD x: T1N0M0 multifoca l microPTC R thyroid lobePlan: Surgery (done; TL, R thyroid lobectomy , bilat ND, ALT free flap) and close fu for larynx cancer and referral to endo and obs for thyroid cancer11/23: Head and Neck Tumor BoardDx: T2N0M0 recurrent SqCCa Plan: TL, ND, free flap2018: Head and Neck Tumor BoardPath ology: [id number] R TVCPlan: XRT 8: Head and Neck Tumor BoardDx: [id number] SqCCa R TVCTreatm ent: surgery (already done) and serial exams close f/u Vertigo Vertigo Disease Active Methodi 11-24 st 00:00: Hospita 00 l Dizziness Dizziness Disease Active Uni vers and and 11-23 it[place] Disequilib Disequilib Disease Active M ethodi rium rium 11-23 st 00:00: Hospita 00 l Obesity Obesity Disease Active Methodi (BMI (BMI 08-20 st 30-39.9) 30-39.9) 00:00: Hospit a 00 l PAF PAF Disease Active Methodi (paroxysma (paroxysma 08-20 l atrial l atrial 00:00: Hospit a fibrillati fibrillati 00 l on) on) Allergies, Adverse Reactions, Alerts Allergy Allergy Status Severity Reaction(s) Onset Inactive Treating Comm ents Source Name Type Date Date Clinician Iodine Propensi Active Other - See seizure Un aurelia And ty to comments 2-20 ity of Iodide adverse 00:00: [place] Containi reaction 00 Medica l ng s Branch Products IODINE Drug Active Other-Cmnt Univer s AND Class 2-20 ity of IODIDE 00:00: [place] CONTAINI 00 Medical NG Branch PRODUCTS Iodine Propensi Active Other - See seizure Un aurelia And ty to comments 2-20 ity of Iodide adverse 00:00: [place] Containi reaction 00 Medica l ng s Branch Products Codeine Propensi Active Unknown - Univ ers ty to See comments 11-23 reports ity of adverse 00:00: allergy [place] reaction 00 Medical s Branch CODEINE DRUG Active Unknown-Cmnt Uni vers INGREDI 11-23 ity of 00:00: [place] 00 Medical Branch Codeine Propensi Active GI Methodi ty to Intolerance 11-[address] adverse 00:00: allergy - Hospit a reaction 00 Nausea & l s to Vomiting drug Iodine Propensi Active Anaphylaxis Uni vers ty to 2-26 ity of adverse 00:00: [place] reaction 00 Medical s Branch Latex, Propensi Active Rash Univers Natural ty to 2 ity of Rubber adverse 00:00: [place] reaction 00 Medical s Branch IODINE DRUG Active Anaphylaxis Unive rs INGREDI 2- ity of 00:00: [place] 00 Medical Branch LATEX, Drug Active Rash Univers NATURAL Class 2- ity of RUBBER 00:00: Medical Branch Latex, Propensi Active Rash Univers Natural ty to 2 ity of Rubber adverse 00:00: [place] reaction 00 Medical s Branch Iodine Propensi Active Anaphylaxis Iodine Met hodi ty to 08-[address] adverse 00:00: Hospita reaction 00 l s to drug Latex, Propensi Active Rash ADHESIVES Metho di Natural ty to 08-20 - PAPER st Rubber adverse 00:00: TAPE AND Hospita reaction 00 TEGADERM l s to OK TO USE drug Family History Family Member Diagnosis Comments Start Date Stop Date Source Natural brother Cancer [facility] Natural brother Diabetes [facility] Natural daughter Thyroid disease Met [facility] Natural father Cancer [facility] Natural father Diabetes [facility] Natural mother Cancer [facility] Natural mother Heart disease [facility] Social History Social Habit Start Date Stop Date Quantity Comments Source History of tobacco Current smoker Me thodist use [facility] Gender identity [facility] orientation [facility] Alcohol intake 2022-12-28 2022-12-28 Lifetime Catholic 00:00:00 00:00:00 non-drinker Hospital (finding) History of Social 2022-12-28 2022-12-28 [facility] st function 00:00:00 00:00:00 Hospital Cigarettes smoked 2022-07-27 2022-07-[address] current (pack per 00:00:00 00:00:00 Hospita l day) - Reported Cigarette 2022-07-27 2022-07-27 [facility] pack-years 00:00:00 00:00:00 Hospital Tobacco use and 2022-07-27 2022-07-27 Smokeless Catholic exposure 00:00:00 00:00:00 tobacco non-user Hospital Exposure to 2022-02-14 2022-02-24 Yes University of SARS-CoV-2 (event) 00:00:00 08:46:00 [facility] Tobacco Comment 2016-11-23 2016-11-23 Quit about 35 Univer dignay of 00:00:00 00:00:00 years ago [facility] Sex Assigned At [birth year] Catholic 00:00:00 00:00:00 Hospital Smoking Status Start Date Stop Date Source Ex-smoker 2022-07-27 00:00:00 2022-07-27 00:00:00 [facility] Medications Ordered Filled Start Stop Current Ordering Indication Dosage Frequency Signature Comments Components Source Medication Medication Date Date Medication? Clinician (SIG) Name Name rosuvastati Yes 10mg QD Take 1 Meth dane n (CRESTOR) 7-06 tablet (10 st 10 mg 10:14: mg total) Hospita tablet 34 by mouth l daily. rivaroxaban Yes 20mg QD Take 1 Meth dane (XARELTO) 7-06 tablet (20 st 20 mg 10:14: mg total) Hospita tablet 34 by mouth l daily. levothyroxi 2023- Yes [id number] 112ug QD Take 1 Methodi ne 7-06 07-[address] (Synthroid) 00:00: 04:59 (112 mcg H ospita 112 mcg 00 :00 total) by l tablet mouth daily. irbesartan Yes 300mg QD Take 1 Meth dane (AVAPRO) 6-[address] 300 MG 00:00: (300 mg Hospita tablet 00 total) by l mouth daily. levothyroxi 2022- No [id number] 112ug QD Take 1 Methodi ne -17 -[address] (Synthroid) 00:00: 00:00 (112 mcg H ospita 112 mcg 00 :00 total) by l tablet mouth daily for 90 days. irbesartan 2022- No 300mg QD Take 300 M ethodi (AVAPRO) 2-02 02-[address] 300 MG 12:19: 00:00 mouth Hospita tablet 17 :00 daily. l amIODarone 2022- No 200mg QD Take 200 M ethodi (PACERONE) 2-02 02-[address] 200 MG 12:18: 00:00 mouth Hospita tablet 59 :00 every l morning. levothyroxi 2021-06- No 112ug QD Take 1 Me thodi ne 1- 04-[address] (Synthroid) 00:00: 00:00 (112 mcg H ospita 112 mcg 00 :00 total) by l tablet mouth daily. albuterol 2021-06- No 1{ampul Q.[id number] Take 1 Methodi (ACCUNEB) 0-18 10-18 e} [id number] ampule by st 0.63 mg/3 09:37: 00:00 3D nebulizati H ospita mL 17 :00 on 3 l nebulizer (three) solution times a day. albuterol 2021-06 Yes [id number] USE 3 ML Methodi (ACCUNEB) 0-[address] 0.63 mg/3 00:00: NEBULIZATI Ho spita mL 00 ON EVERY 8 l nebulizer HOURS solution NEEDED WHEEZING levothyroxi 2021-06- No [id number] 100ug QD Take 1 Methodi ne 0-18 11-[address] (SYNTHROID) 00:00: 00:00 (100 mcg H ospita 100 mcg 00 :00 total) by l tablet mouth daily for 30 days. acetaminoph 2021- No 1000mg 1,000 mg, Univers en 02-24 Oral, ity of (TYLENOL) 16:15: 15:24 ONCE, 1 [place] tablet [place] :[place] dose, On Medical 1,000 mg 02/24/22 Branc h at 1115, Routine ondansetron Yes [id number] 4mg Take 1 Univers 4 mg 02-24 tablet by ity of disintegrat 00:00: mouth [place] ing tablet 00 every 8 Medica l (eight) Branch hours as needed for Nausea and Vomiting (N/V). esomeprazol Yes TAKE 1 Meth dane e (NexIUM) 6-21 CAPSULE(40 st 40 MG 00:00: MG) BY Hospita capsule 00 MOUTH l DAILY BEFORE BREAKFAST rivaroxaban Yes 20mg Take 20 mg Univers (XARELTO) 5-22 by mouth ity of 20 mg 08:40: daily. [place] tablet 56 Medical Branch irbesartan Yes 300mg Take 300 Un aurelia 300 mg 5-22 mg by ity of tablet 08:40: mouth at [place] 56 bedtime. Medical Branch esomeprazol 0 Yes 40mg Take 40 mg Univers e 40 mg 5-22 by mouth ity of capsule 08:40: daily [place] 56 breakfast. Medical Branch amiodarone 0 Yes 200mg Take 200 Un aurelia 200 mg 5-22 mg by ity of tablet 08:40: mouth [place] 56 daily. Medical Branch albuterol Yes 1{ampul Use 1 Univ ers 0.63 mg/3 5-22 e} Ampule as ity o f mL 08:40: directed [place] nebulizer 56 every 8 Medical solution (eight) Branch hours as needed for Wheezing. levothyroxi Yes 100ug Take 100 U nivers ne 5-22 mcg by ity of (SYNTHROID) 08:40: mouth [place] 100 mcg 56 every Medical tablet morning. Branch rivaroxaban Yes 20mg Take 20 mg Univers (XARELTO) 5-22 by mouth ity of 20 mg 08:40: daily. [place] tablet 56 Medical Branch irbesartan Yes 300mg Take 300 Un aurelia 300 mg 5-22 mg by ity of tablet 08:40: mouth at [place] 56 bedtime. Medical Branch esomeprazol Yes 40mg Take 40 mg Univers e 40 mg 5-22 by mouth ity of capsule 08:40: daily [place] 56 breakfast. Medical Branch amiodarone Yes 200mg Take 200 Un aurelia 200 mg 5-22 mg by ity of tablet 08:40: mouth [place] 56 daily. Medical Branch albuterol Yes 1{ampul Use 1 Univ ers 0.63 mg/3 5-22 e} Ampule as ity o f mL 08:40: directed [place] nebulizer 56 every 8 Medical solution (eight) Branch hours as needed for Wheezing. levothyroxi 0 Yes 100ug Take 100 U nivers ne 5-22 mcg by ity of (SYNTHROID) 08:40: mouth [place] 100 mcg 56 every Medical tablet morning. Branch rivaroxaban Yes 20mg Take 20 mg Univers (XARELTO) 2-21 by mouth ity of 20 mg 18:24: daily. [place] tablet 41 Medical Branch irbesartan 0 Yes 300mg Take 300 Un aurelia 300 mg 2-21 mg by ity of tablet 18:24: mouth at [place] [address] bedtime. Medical Branch esomeprazol 0 Yes 40mg Take 40 mg Univers e 40 mg 2-21 by mouth ity of capsule 18:24: daily [place] 41 breakfast. Medical Branch amiodarone 0 Yes 200mg Take 200 Un aure[place] 200 mg 2-21 mg by ity of tablet 18:24: mouth [place] 41 daily. Medical Branch albuterol 0 Yes 1{ampul Use 1 Univ ers 0.63 mg/3 2-21 e} Ampule as ity o f mL 18:24: directed [place] nebulizer 41 every 8 Medical solution (eight) Branch hours as needed for Wheezing. amoxicillin Yes 1{tbl} Take 1 Un aurelia -clavulanat 2-21 tablet by ity of e 18:24: mouth 2 [place] (AUGMENTIN) 41 (two) Medical 875-125 mg times Branch per tablet daily. rivaroxaban 0 Yes 20mg Take 20 mg Univers (XARELTO) 2-21 by mouth ity of 20 mg 18:24: daily. [place] tablet 41 Medical Branch irbesartan 0 Yes 300mg Take 300 Un aurelia 300 mg 2-21 mg by ity of tablet 18:24: mouth at [place] [address] bedtime. Medical Branch esomeprazol Yes 40mg Take 40 mg Univers e 40 mg 2-21 by mouth ity [facility] capsule [facility]:24: [facility] Branch amiodarone 0 Yes 200mg Take 200 Un aurelia 200 mg 2-21 mg by ity of tablet 18:24: mouth [place] 41 daily. Medical Branch albuterol 0 Yes 1{ampul Use 1 Univ ers 0.63 mg/3 2-21 e} Ampule as ity o f mL 18:24: directed [place] nebulizer 41 every 8 Medical solution (eight) Branch hours as needed for Wheezing. amoxicillin 0 Yes 1{tbl} Take 1 Un aurelia -clavulanat 2-21 tablet by ity of e 18:24: mouth 2 [place] (AUGMENTIN) 41 (two) Medical 875-125 mg times Branch per tablet daily. rivaroxaban 0 Yes 20mg Take 20 mg Univers (XARELTO) 2-21 by mouth ity of 20 mg 18:24: daily. [place] tablet 41 Medical Branch irbesartan 0 Yes 300mg Take 300 Un aurelia 300 mg 2-21 mg by ity of tablet 18:24: mouth at [place] [address] bedtime. Medical Branch esomeprazol 0 Yes 40mg Take 40 mg Univers e 40 mg 2-21 by mouth ity of capsule 18:24: daily [place] 41 breakfast. Medical Branch amiodarone 0 Yes 200mg Take 200 Un aurelia 200 mg 2-21 mg by ity of tablet 18:24: mouth [place] 41 daily. Medical Branch albuterol 0 Yes 1{ampul Use 1 Univ ers 0.63 mg/3 2-21 e} Ampule as ity o f mL 18:24: directed [place] nebulizer 41 every 8 Medical solution (eight) Branch hours as needed for Wheezing. amoxicillin 0 Yes 1{tbl} Take 1 Un aurelia -clavulanat 2-21 tablet by ity of e 18:24: mouth 2 [place] (AUGMENTIN) 41 (two) Medical 875-125 mg times Branch per tablet daily. rivaroxaban 0 Yes 20mg Take 20 mg Univers (XARELTO) 2-21 by mouth ity of 20 mg 18:24: daily. [place] tablet 41 Medical Branch irbesartan 0 Yes 300mg Take 300 Un aurelia 300 mg 2-21 mg by ity of tablet 18:24: mouth at [place] [address] bedtime. Medical Branch esomeprazol 0 Yes 40mg Take 40 mg Univers e 40 mg 2-21 by mouth ity of capsule 18:24: daily [place] 41 breakfast. Medical Branch amiodarone 0 Yes 200mg Take 200 Un a[place] 200 mg 2-21 mg by ity of tablet 18:24: mouth [place] 41 daily. Medical Branch albuterol 0 Yes 1{ampul Use 1 Univ ers 0.63 mg/3 2-21 e} Ampule as ity o f mL 18:24: directed [place] nebulizer 41 every 8 Medical solution (eight) Branch hours as needed for Wheezing. amoxicillin 0 Yes 1{tbl} Take 1 Un aurelia -clavulanat 2-21 tablet by ity of e 18:24: mouth 2 [place] (AUGMENTIN) 41 (two) Medical 875-125 mg times Branch per tablet daily. rivaroxaban 0 Yes 20mg Take 20 mg Univers (XARELTO) 2-21 by mouth ity of 20 mg 18:24: daily. [place] tablet 41 Medical Branch irbesartan 0 Yes 300mg Take 300 Un aurelia 300 mg 2-21 mg by ity of tablet 18:24: mouth at [place] [address] bedtime. Medical Branch esomeprazol Yes 40mg Take 40 mg Univers e 40 mg 2-21 by mouth ity of capsule 18:24: daily with [place] [address] breakfast. Medical Branch amiodarone Yes 200mg Take 200 Un a[place] 200 mg 2-21 mg by ity of tablet 18:24: mouth [place] [address] daily. Medical Branch albuterol Yes 1{ampul Use 1 Univ ers 0.63 mg/3 2-21 e} Ampule as ity o f mL 18:24: directed [place] nebulizer 41 every 8 Medical solution (eight) Branch hours as needed for Wheezing. amoxicillin Yes 1{tbl} Take 1 Un aurelia -clavulanat 2-21 tablet by ity of e 18:24: mouth 2 [place] (AUGMENTIN) 41 (two) Medical 875-125 mg times Branch per tablet daily. rivaroxaban 0 Yes 20mg Take 20 mg Univers (XARELTO) 2-21 by mouth ity of 20 mg 18:24: daily. [place] tablet 41 Medical Branch irbesartan Yes 300mg Take 300 Un a[place] 300 mg 2-21 mg by ity of tablet 18:24: mouth at [place] [address] bedtime. Medical Branch esomeprazol Yes 40mg Take 40 mg Univers e 40 mg 2-21 by mouth ity of capsule 18:24: daily with [place] 41 breakfast. Medical Branch amiodarone Yes 200mg Take 200 Un a[place] 200 mg 2-21 mg by ity of tablet 18:24: mouth [place] 41 daily. Medical Branch albuterol 2022-0 Yes 1{ampul Use 1 Univ ers 0.63 mg/3 2-21 e} Ampule as ity o f mL 18:24: directed [place] nebulizer 41 every 8 Medical solution (eight) Branch hours as needed for Wheezing. amoxicillin 0 Yes 1{tbl} Take 1 Un aurelia -clavulanat 2-21 tablet by ity of e 18:24: mouth 2 [place] (AUGMENTIN) 41 (two) Medical 875-125 mg times Branch per tablet daily. rivaroxaban 0 Yes 20mg Take 20 mg Univers (XARELTO) 2-21 by mouth ity of 20 mg 18:24: daily. [place] tablet 41 Medical Branch irbesartan 0 Yes 300mg Take 300 Un a[place] 300 mg 2-21 mg by ity of tablet 18:24: mouth at [place] [address] bedtime. Medical Branch esomeprazol Yes 40mg Take 40 mg Univers e 40 mg 2-21 by mouth ity of capsule 18:24: daily with [place] 41 breakfast. Medical Branch amiodarone Yes 200mg Take 200 Un a[place] 200 mg 2-21 mg by ity of tablet 18:24: mouth [place] [address] daily. Medical Branch albuterol Yes 1{ampul Use 1 Univ ers 0.63 mg/3 2-21 e} Ampule as ity o f mL 18:24: directed [place] nebulizer 41 every 8 Medical solution (eight) Branch hours as needed for Wheezing. amoxicillin Yes 1{tbl} Take 1 Un auerlia -clavulanat 2-21 tablet by ity of e 18:24: mouth 2 [place] (AUGMENTIN) 41 (two) Medical 875-125 mg times Branch per tablet daily. rivaroxaban 0 Yes 20mg Take 20 mg Univers (XARELTO) 2-21 by mouth ity of 20 mg 18:24: daily. [place] tablet 41 Medical Branch irbesartan 0 Yes 300mg Take 300 Un aurelia 300 mg 2-21 mg by ity of tablet 18:24: mouth at [place] [address] bedtime. Medical Branch esomeprazol Yes 40mg Take 40 mg Univers e 40 mg 2-21 by mouth ity of capsule 18:24: daily with [place] 41 breakfast. Medical Branch amiodarone Yes 200mg Take 200 Un a[place] 200 mg 2-21 mg by ity of tablet 18:24: mouth [place] 41 daily. Medical Branch albuterol Yes 1{ampul Use 1 Univ ers 0.63 mg/3 2-21 e} Ampule as ity o f mL 18:24: directed [place] nebulizer 41 every 8 Medical solution (eight) Branch hours as needed for Wheezing. amoxicillin Yes 1{tbl} Take 1 Un aurelia -clavulanat 2-21 tablet by ity of e 18:24: mouth 2 [place] (AUGMENTIN) 41 (two) Medical 875-125 mg times Branch per tablet daily. rivaroxaban Yes 20mg Take 20 mg Univers (XARELTO) 2-21 by mouth ity of 20 mg 18:24: daily. [place] tablet 41 Medical Branch irbesartan Yes 300mg Take 300 Un a[place] 300 mg 2-21 mg by ity of tablet 18:24: mouth at [place] [address] bedtime. Medical Branch esomeprazol Yes 40mg Take 40 mg Univers e 40 mg 2-21 by mouth ity of capsule 18:24: daily with [facility] s 41 breakfast. Medical Branch amiodarone Yes 200mg Take 200 Un a[place] 200 mg 2-21 mg by ity of tablet 18:24: mouth [place] 41 daily. Medical Branch albuterol Yes 1{ampul Use 1 Univ ers 0.63 mg/3 2-21 e} Ampule as ity o f mL 18:24: directed [place] nebulizer 41 every 8 Medical solution (eight) Branch hours as needed for Wheezing. amoxicillin Yes 1{tbl} Take 1 Un aurelia -clavulanat 2-21 tablet by ity of e 18:24: mouth 2 [place] (AUGMENTIN) 41 (two) Medical 875-125 mg times Branch per tablet daily. amoxicillin 2021-0 Yes 1{tbl} Take 1 Un aurelia -clavulanat 2-21 tablet by ity of e 18:24: mouth 2 [place] (AUGMENTIN) 41 (two) Medical 875-125 mg times Branch per tablet daily. amoxicillin 2021-0 Yes 1{tbl} Take 1 Un aurelia -clavulanat 2-21 tablet by ity of e 18:24: mouth 2 [place] (AUGMENTIN) 41 (two) Medical 875-125 mg times Branch per tablet daily. guaiFENesin 2022- No 600mg Q.5D Take 1 Me thodi (Mucinex) 07-[address] 600 mg 00:00: 00:00 (600 mg Hospita tablet 00 :00 total) by l extended mouth 2 release (two) 12hr times a day. levothyroxi 2020-06- No 100ug QD Take 1 Me thodi ne 08-02-[address] (SYNTHROID) 00:00: 00:00 (100 mcg H ospita 100 mcg 00 :00 total) by l tablet mouth daily. rosuvastati 2020-0 Yes 10mg Take 10 mg Univers n 10 mg 5-21 by mouth. ity of tablet 00:00: [address] rosuvastati 2020-0 Yes 10mg Take 10 mg Univers n 10 mg 5-21 by mouth. ity of tablet 00:00: [place] [facility] rosuvastati 2020-0 Yes 10mg Take 10 mg Univers n 10 mg 5-21 by mouth. ity of tablet 00:00: [place] [facility] rosuvastati 2020-0 Yes 10mg Take 10 mg Univers n 10 mg 5-21 by mouth. ity of tablet 00:00: [place] [facility] rosuvastati 2020-0 Yes 10mg Take 10 mg Univers n 10 mg 5-21 by mouth. ity of tablet 00:00: [address] rosuvastati 2020-0 Yes 10mg Take 10 mg Univers n 10 mg 5-21 by mouth. ity of tablet 00:00: [place] [facility] rosuvastati 2020-0 Yes 10mg Take 10 mg Univers n 10 mg 5-21 by mouth. ity of tablet 00:00: [address] rosuvastati 2020-0 Yes 10mg Take 10 mg Univers n 10 mg 5-21 by mouth. ity of tablet 00:00: [place] [facility] Branch rosuvastati 2020-0 Yes 10mg Take 10 mg Univers n 10 mg 5-21 by mouth. ity of tablet 00:00: [address] rosuvastati 2020-0 Yes 10mg Take 10 mg Univers n 10 mg 5-21 by mouth. ity of tablet 00:00: [place] 00 Medical Branch rosuvastati 2020-0 Yes 10mg Take 10 mg Univers n 10 mg 5-21 by mouth. ity of tablet 00:00: [place] 00 Medical Branch levothyroxi 2020-0 Yes [id number] 88ug Take 1 Univers ne 88 mcg 5-15 tablet by ity o f tablet 00:00: mouth [place] 00 every Medical morning. Branch metoprolol 2020-0 Yes [id number] 12.5mg Take 12.5 Univers succinate 5-15 mg by ity of 25 mg CSpX 00:00: mouth [place] 00 daily. Medical Branch levothyroxi 2020-0 Yes [id number] 88ug Take 1 Univers ne 88 mcg 5-15 tablet by ity o f tablet 00:00: mouth [place] 00 every Medical morning. Branch metoprolol 2020-0 Yes [id number] 12.5mg Take 12.5 Univers succinate 5-15 mg by ity of 25 mg CSpX 00:00: mouth [place] 00 daily. Medical Branch levothyroxi 2020-0 Yes [id number] 88ug Take 1 Univers ne 88 mcg 5-15 tablet by ity o f tablet 00:00: mouth [place] 00 every Medical morning. Branch metoprolol 2020-0 Yes [id number] 12.5mg Take 12.5 Univers succinate 5-15 mg by ity of 25 mg CSpX 00:00: mouth [place] 00 daily. Medical Branch levothyroxi 2020-0 Yes [id number] 88ug Take 1 Univers ne 88 mcg 5-15 tablet by ity o f tablet 00:00: mouth [place] 00 every Medical morning. Branch metoprolol 2020-0 Yes [id number] 12.5mg Take 12.5 Univers succinate 5-15 mg by ity of 25 mg CSpX 00:00: mouth [place] 00 daily. Medical Branch levothyroxi 2020-0 Yes [id number] 88ug Take 1 Univers ne 88 mcg 5-15 tablet by ity o f tablet 00:00: mouth [place] 00 every Medical morning. Branch metoprolol 2020-0 Yes [id number] 12.5mg Take 12.5 Univers succinate 5-15 mg by ity of 25 mg CSpX 00:00: mouth [place] 00 daily. Medical Branch levothyroxi 2020-0 Yes [id number] 88ug Take 1 Univers ne 88 mcg 5-15 tablet by ity o f tablet 00:00: mouth [place] 00 every Medical morning. Branch metoprolol 2019-0 Yes [id number] 12.5mg Take 12.5 Univers succinate 5-15 mg by ity of 25 mg CSpX 00:00: mouth [place] 00 daily. Medical Branch levothyroxi 2020-0 Yes [id number] 88ug Take 1 Univers ne 88 mcg 5-15 tablet by ity o f tablet 00:00: mouth [place] 00 every Medical morning. Branch metoprolol 2019-0 Yes [id number] 12.5mg Take 12.5 Univers succinate 5-15 mg by ity of 25 mg CSpX 00:00: mouth [place] 00 daily. Medical Branch levothyroxi 2019-0 Yes [id number] 88ug Take 1 Univers ne 88 mcg 5-15 tablet by ity o f tablet 00:00: mouth [place] 00 every Medical morning. Branch metoprolol 2019-0 Yes [id number] 12.5mg Take 12.5 Univers succinate 5-15 mg by ity of 25 mg CSpX 00:00: mouth [place] 00 daily. Medical Branch levothyroxi 2019-0 Yes [id number] 88ug Take 1 Univers ne 88 mcg 5-15 tablet by ity o f tablet 00:00: mouth [place] 00 every Medical morning. Branch metoprolol 2019-0 Yes [id number] 12.5mg Take 12.5 Univers succinate 5-15 mg by ity of 25 mg CSpX 00:00: mouth [place] 00 daily. Medical Branch metoprolol 2019-0 Yes [id number] 12.5mg Take 12.5 Univers succinate 5-15 mg by ity of 25 mg CSpX 00:00: mouth [place] 00 daily. Medical Branch metoprolol 2019-0 Yes [id number] 12.5mg Take 12.5 Univers succinate 5-15 mg by ity of 25 mg CSpX 00:00: mouth [place] 00 daily. Medical Branch levothyroxi 2019-0 2021- No [id number] 88ug Take 1 Univers ne 88 mcg 5-15 05-22 tablet by ity of tablet 00:00: 00:00 mouth [place] 00 :00 every Medical morning. Branch metoprolol 2016-0 2022- No 25mg QD Take 25 mg Methodi tartrate 11-[address] (LOPRESSOR) 00:00: 00:00 every [facility]osp [facility] 25 mg 00 :00 morning. l tablet nitroglycer 2017-[address] 1 Uni vers in 0.4 mg 2-28 tablet ity of sublingual 00:00: under [place] tablet 00 tongue Medical every 5 Branch (five) minutes as needed for Chest pain. nitroglycer 2017-[address] 1 Uni vers in 0.4 mg 2-28 tablet ity of sublingual 00:00: [place] the [place] tablet 00 tongue Medical every 5 Branch (five) minutes as needed for Chest pain. nitroglycer 2017-[address] 1 Uni vers in 0.4 mg 2-28 tablet ity of sublingual 00:00: under the [place] tablet 00 tongue Medical every 5 Branch (five) minutes as needed for Chest pain. nitroglycer 2017-[address] 1 Uni vers in 0.4 mg 2-28 tablet ity of sublingual 00:00: under the [place] tablet 00 tongue Medical every 5 Branch (five) minutes as needed for Chest pain. nitroglycer 2017-[address] 1 Uni vers in 0.4 mg 2-28 tablet ity of sublingual 00:00: under the [place] tablet 00 tongue Medical every 5 Branch (five) minutes as needed for Chest pain. nitroglycer 2017-[address] 1 Uni vers in 0.4 mg 2-28 tablet ity of sublingual 00:00: under the [place] tablet 00 tongue Medical every 5 Branch (five) minutes as needed for Chest pain. nitroglycer 2017-[address] 1 Uni vers in 0.4 mg 2-28 tablet ity of sublingual 00:00: under the [place] tablet 00 tongue Medical every 5 Branch (five) minutes as needed for Chest pain. nitroglycer 2017-[address] 1 Uni vers in 0.4 mg 2-28 tablet ity of sublingual 00:00: under the [place] tablet 00 tongue Medical every 5 Branch (five) minutes as needed for Chest pain. nitroglycer 2017-[address] 1 Uni vers in 0.4 mg 2-28 tablet ity of sublingual 00:00: under the [place] tablet 00 tongue Medical every 5 Branch (five) minutes as needed for Chest pain. nitroglycer 2017-[address] 1 Uni vers in 0.4 mg 2-28 tablet ity of sublingual 00:00: under the [place] tablet 00 tongue Medical every 5 Branch (five) minutes as needed for Chest pain. nitroglycer 2017-[address] 1 Uni vers in 0.4 mg 2-28 tablet ity of sublingual 00:00: under the [place] tablet 00 tongue Medical every 5 Branch (five) minutes as needed for Chest pain. Immunizations Ordered Filled Immunization Date Status Comments [facility] e Immunization Name Name PFIZER COVID-19 2020-08-22 Completed [facility] VACCINATION 00:00:00 [facility] PFIZER COVID-19 2020-08-01 Completed [facility] VACCINATION 00:00:00 Hospital Pneumococcal 2016-11-26 Completed University o f Polysaccharide, 00:00:00 [place] Med ical PPSV23 (PNEUMOVAX) Branch Pneumococcal 2016-11-26 Completed University o f Polysaccharide, 00:00:00 [place] Med ical PPSV23 (PNEUMOVAX) Branch Pneumococcal 2016-11-26 Completed University o f Polysaccharide, 00:00:00 [place] Med ical PPSV23 (PNEUMOVAX) Branch Pneumococcal 2016-11-26 Completed University o f Polysaccharide, 00:00:00 [place] Med ical PPSV23 (PNEUMOVAX) Branch Pneumococcal 2016-11-26 Completed University o f Polysaccharide, 00:00:00 [place] Med ical PPSV23 (PNEUMOVAX) Branch Pneumococcal 2016-11-26 Completed University o f Polysaccharide, 00:00:00 [place] Med ical PPSV23 (PNEUMOVAX) Branch Pneumococcal 2016-11-26 Completed University o f Polysaccharide, 00:00:00 [place] Med ical PPSV23 (PNEUMOVAX) Branch Pneumococcal 2016-11-26 Completed University o f Polysaccharide, 00:00:00 [place] Med ical PPSV23 (PNEUMOVAX) Branch Pneumococcal 2016-11-26 Completed University o f Polysaccharide, 00:00:00 [place] Med ical PPSV23 (PNEUMOVAX) Branch Pneumococcal 2016-11-26 Completed University o f Polysaccharide, 00:00:00 [place] Med ical PPSV23 (PNEUMOVAX) Branch Pneumococcal 2016-11-26 Completed University o f Polysaccharide, 00:00:00 [place] [facility] ical PPSV23 (PNEUMOVAX) Branch Vital Signs Vital Name Observation Time Observation Value Comments Source Systolic blood 2022-02-24 15:28:00 94 mm[Hg] Univer sity of pressure [place] [facility] Diastolic blood 2022-02-24 15:28:00 63 mm[Hg] Unive rsity of pressure [place] [facility] Heart rate 2022-02-24 15:28:00 56 /min [facility]i ty [facility] [place] [facility] Respiratory rate 2022-02-24 15:28:00 18 /min Univ ersity of [place] [facility] Oxygen saturation in 2022-02-24 15:28:00 94 /min University of Arterial blood by [facility] Pulse oximetry Branch Body temperature 2022-02-24 13:48:00 38.06 Angie Univ ersity of [place] [facility] Body height 2022-02-24 13:48:00 177.8 cm [facility] [place] [facility] Body weight 2022-02-24 13:48:00 102.059 kg [facility] [place] [facility] BMI 2022-02-24 13:48:00 32.28 kg/m2 [facility] [place] [facility] Systolic blood 2021-11-13 15:52:00 120 mm[Hg] Univer sity of pressure [place] [facility] Diastolic blood 2021-11-13 15:52:00 59 mm[Hg] Unive rsity of pressure [place] [facility] Heart rate 2021-11-13 15:52:00 66 /min [facility] [place] [facility] Respiratory rate 2021-11-13 15:52:00 14 /min Univ ersity of [place] [facility] Oxygen saturation in 2021-11-13 15:52:00 98 /min University of Arterial blood by [facility] Pulse oximetry Branch Body temperature 2021-11-13 13:33:00 37.06 Angie Univ ers[facility] [place] [facility] Body height 2021-11-13 13:33:00 177.8 cm [facility] [place] [facility] Body weight 2021-11-13 13:33:00 102.059 kg [facility] [place] [facility] BMI 2021-11-13 13:33:00 32.28 kg/m2 [facility] [place] [facility] Systolic blood 2021-09-22 13:26:00 116 mm[Hg] Univer sity of pressure [place] [facility] Diastolic blood 2021-09-22 13:26:00 68 mm[Hg] Unive rsity of pressure [facility] Heart rate 2021-09-22 13:26:00 59 /min [facility] Respiratory rate 2021-09-22 13:26:00 17 /min [facility] 2021-09-22 13:26:00 179.1 cm [facility] Body weight 2021-09-22 13:26:00 97.07 kg [facility] BMI 2021-09-22 13:26:00 30.27 kg/m2 [facility] Systolic blood 2022-12-28 15:09:00 125 mm[Hg] Method [facility] pressure Diastolic blood 2022-12-28 15:09:00 68 mm[Hg] [facility] pressure Heart rate 2022-12-28 15:09:00 65 /min [facility] Body height 2022-12-28 15:09:00 175.3 cm [facility] Body weight 2022-12-28 15:09:00 96.253 kg [facility] BMI 2022-12-28 15:09:00 31.34 kg/m2 [facility] Procedures Procedure Date / Time Performing Clinician Source Performed BASIC METABOLIC PANEL 2022-12-28 [facility]22-12-20 17:13:00 Jaya, [facility] HORMONE T4, FREE 2022-12-20 17:13:00 [facility] 2022-12-20 17:13:00 [facility] COMPREHENSIVE METABOLIC 2022-12-20 17:13:[address] [facility] PANEL THYROID STIMULATING 2022-12-15 13:14:00 Matias, [facility] HORMONE T4, FREE 2022-12-15 13:14:00 [facility] T[facility] 2022-12-15 13:14:00 [facility] BASIC METABOLIC PANEL 2022-12-15 13:14:00 Matias [facility] HEMOGLOBIN A1C 2022-12-15 13:14:00 Cubb, [facility] ospital PET CT SKULL BASE TO MID 2022-08-17 23:10:21 [facility] THIGH SURGICAL PATHOLOGY 2022-08-11 21:17:00 [facility] REQUEST THYROGLOBULIN ANTIBODY 2022-07-24 15:03:00 Cubb, [facility] AND THYROGLOBULIN, CORINE OR MATHEW THYROID STIMULATING 2022-07-24 15:03:00 Cubb, [facility] HORMONE T4, FREE 2022-07-24 15:03:00 Cubb, [facility] ospital T3 2022-07-24 15:03:00 Cubb, [facility] ospital VITAMIN D 25 HYDROXY 2022-07-24 15:03:00 Cubb, [facility] LEVEL THYROGLOBULIN BY [facility] 2022-07-24 15:03:00 Cubb, [facility] (NOT ORDERABLE) US THYROID AND LATERAL 2022-05-29 16:09:29 Cubb, [facility] NECK THYROID STIMULATING 2022-04-11 13:38:00 Cubb, [facility] HORMONE T4, FREE 2022-04-11 13:38:00 Cubb, [facility] ospital THYROGLOBULIN ANTIBODY 2022-04-11 13:38:00 Cubb, [facility] AND THYROGLOBULIN, CORINE OR MATHEW THYROGLOBULIN BY [facility] 2022-04-11 13:38:00 Cubb, [facility] (NOT ORDERABLE) XR CHEST 1 VW 2022-02-24 15:13:18 Na Morris Hague o f [place] [facility] COVID-19 (ID NOW RAPID 2022-02-24 14:04:00 Na Morris [facility] TESTING) Medical Branch CONSENT/REFUSAL FOR 2022-02-24 13:48:08 [facility] Name Medical Branch XR CHEST 1 VW 2021-11-13 13:57:31 Jean Olea [facility] COMP. METABOLIC PANEL 2021-11-13 13:41:00 Jean Olea [facility] ([id number]) [facility] CBC WITH DIFF 2021-11-13 13:41:00 Jean Olea [facility] PROTHROMBIN TIME / INR 2021-11-13 13:41:00 Jean Olea [facility] ACTIVATED PARTIAL 2021-11-13 13:41:00 Jean Olea [facility] THRMPLAS [facility] DSU PRE-OP 2021-10-05 05:01:00 Doctor Unassigned, No [facility] Name [facility] XR CHEST 1 VW 2021-09-27 13:11:05 Devin Suh [facility] CBC WITH DIFF 2021-09-27 13:03:00 Devin Suh [facility] Plan of Care Planned Activity Planned Date Details Comments Source Future Scheduled 2022-12-29 Hepatitis C screening [facility] [place] Test 10:58:50 (procedure) [code = 478959214] Future Scheduled 2022-12-29 SHINGLES VACCINES ([address] [facility] Test 10:58:50 of 2) [code = SHINGLES VACCINES (1 of 2)] Future Scheduled 2022-12-29 65+ PNEUMOCOCCAL Methodi [facility] Test 10:58:50 VACCINE (2 - PCV) [code = 65+ PNEUMOCOCCAL VACCINE (2 - PCV)] Future Scheduled 2022-12-29 COVID-19 VACCINE (3 - [facility] [place] Test 10:58:50 Pfizer series) [code = COVID-19 VACCINE (3 - Pfizer series)] Future Scheduled 2022-12-29 INFLUENZA VACCINE [facility] Test 10:58:50 [code = INFLUENZA VACCINE] Encounters Start End Encounter Admission Attending Care Care Encounter Source Date/Time Date/Time Type Type Clinicians Facility Department ID 2022-12-28 2022-12-28 Office Jaya 1.2.840.1 [id number] Methodi 10:15:00 14:00:29 Visit Karmen Pop 68538.1.1 185 s t 3.430.2.7 Hospit a .3.165019 l .8 2022-12-28 2022-12-28 Outpatient CUBB, [facility] [id number] [place] 00:00:00 00:00:00 KARMEN [address] 2022-12-21 2022-12-21 Orders Cheryl, 1.2.840.1 [id number] Methodi 00:00:00 00:00:00 Only Janell CuellarJun 25801.1.[address] 3.430.2.7 Hospit a .3.103710 l .8 2022-12-20 2022-12-20 Orders Hamlet, 1.2.840.1 [id number] Methodi 00:00:00 00:00:00 Only Jazz 54015.1.[address] 3.430.2.7 Hospit a .3.948592 l .8 2022-10-09 2022-10-09 Orders Lis, 1.2.840.1 [id number] Methodi 00:00:00 00:00:00 Only Pooja Galicia 31974.1.[address] 3.430.2.7 Hospit a .3.031442 l .8 2022-10-08 2022-10-08 Refill Jaya, 1.2.840.1 [id number] Methodi 00:00:00 00:00:00 Karmen Pop 97540.1.1 291 s t 3.430.2.7 Hospit a .3.810249 l .8 2022-08-21 2022-08-21 [place] Cheryl, 1.2.840.1 [id number] 2 [id number] Methodi 00:00:00 00:00:[address] 3.430.2.7 Hospit a .3.282378 l .8 2022-08-17 2022-08-17 [facility] Cheryl, 1.2.840.1 [id number] Methodi 15:27:24 23:59:00 Encounter Janell AlisaJun 69523.1.1 248 s t 3.430.2.7 Hospit a .3.483608 l .8 2022-08-17 2022-08-17 Outpatient [facility] [id number] [place] 00:00:00 00:00:00 JANE[address]SEGUNDO Monge [facility] 2022-08-17 2022-08-17 Travel 1.2.840.1 1.2.224.510 [id number] Methodi 00:00:00 00:00:[address] 3.430.2.7 0.2.7.3.698 Ho spita .3.567652 084.8 l .8 2022-08-17 2022-08-17 Telephone Cheryl, 1.2.840.1 [id number] 2 [id number] Methodi 00:00:00 00:00:[address] 3.430.2.7 Hospit a .3.583717 l .8 2022-08-17 2022-08-17 Telephone Cheryl, 1.2.840.1 [id number] 2 [id number] Methodi 00:00:00 00:00:00 [address] 3.430.2.7 Hospit a .3.079525 l .8 2022-08-14 2022-08-14 Telephone Calvin, 1.2.840.1 [id number] Methodi 00:00:00 00:00:[address] 3.430.2.7 Hospit a .3.589428 l .8 2022-08-11 2022-08-11 [facility] Janell HubbardJun 1.2.840.1 [id number] Methodi 10:00:00 23:59:[address] 3.430.2.7 Hospit a .3.587063 l .8 2022-08-11 2022-08-11 [facility] Meaganmiguel angel 1.2.840.1 [id number] Methodi 14:15:00 14:20:[address] 3.430.2.7 Hospit a .3.778285 l .8 2022-08-11 2022-08-11 Office Muscogeelanaconkhushi, 1.2.840.1 [id number] Methodi 09:45:00 11:34:04 Visit Janell Mcfarlane 85596.1.[address] 3.430.2.7 Hospit a .3.476677 l .8 2022-08-11 2022-08-11 Outpatient [facility] [id number] [place] 00:00:00 00:00:00 JANELL [address] 2022-08-11 2022-08-11 Outpatient [facility] [id number] [place] 00:00:00 00:00:00 JANELL [address] 2022-08-11 2022-08-11 Outpatient [facility] [id number] [place] 00:00:00 00:00:00 JANELL [address] 2022-08-11 2022-08-11 Travel 1.2.840.1 1.2.174.784 [id number] Methodi 00:00:00 00:00:[address] 3.430.2.7 0.2.7.3.698 Ho spita .3.528038 084.8 l .8 2022-08-08 2022-08-08 Travel 1.2.840.1 1.2.407.736 [id number] Methodi 00:00:00 00:00:[address] 3.430.2.7 0.2.7.3.698 Ho spita .3.359688 084.8 l .8 2022-08-04 2022-08-04 [facility] [place], 1.2.840.1 [id number] Methodi 00:00:00 00:00:00 Only Dalia 20018.1.[address] 3.430.2.7 Hospit a .3.895715 l .8 2022-07-27 2022-07-27 Telemedici Cubb, 1.2.840.1 [id number] Methodi 10:15:00 11:17:10 ne Karmen Kiesha 32605.1.1 415 s t 3.430.2.7 Hospit a .3.955576 l .8 2022-07-27 2022-07-27 Outpatient [facility] [id number] [place] 00:00:00 00:00:00 KARMEN [address] 2022-06-26 2022-06-26 [facility] [id number] [facility] 15:45:00 15:45:00 DEVIN castillo [facility] 2022-05-29 2022-05-29 Hospital Cubb, 1.2.840.1 [id number] Methodi 09:37:27 23:59:00 Encounter Karmen Kiesha 00139.1.[address] 3.430.2.7 Hospit a .3.582753 l .8 2022-05-29 2022-05-29 [facility]patient [facility] [id number] [place] 00:00:00 00:00:[address] 2022-05-29 2022-05-29 Travel 1.2.840.1 1.2.213.721 [id number] Methodi 00:00:00 00:00:[address] 3.430.2.7 0.2.7.3.698 Ho spita .3.217971 084.8 l .8 2022-04-25 2022-04-25 Telephone Cubb, 1.2.840.1 [id number] Methodi 14:00:00 14:30:00 Consult Karmen Kiesha 76722.1.1 833 s t 3.430.2.7 Hospit a .3.157942 l .8 2022-04-25 2022-04-25 [facility]patient [facility] [id number] [place] 00:00:00 00:00:00 KARMEN [address] 2022-04-21 2022-04-21 Telephone [place], 1.2.840.1 [id number] Methodi 00:00:00 00:00:00 [address] 3.430.2.7 Hospit a .3.049590 l .8 2022-04-11 2022-04-11 Refill Cubb, 1.2.840.1 [id number] Methodi 00:00:00 00:00:00 Karmen Pop 96855.1.1 892 s t 3.430.2.7 Hospit a .3.433356 l .8 2022-04-11 2022-04-11 Orders [place], 1.2.840.1 [id number] Methodi 00:00:00 00:00:00 Only Pooja Galicia 40960.1.[address] 3.430.2.7 Hospit a .3.044819 l .8 2022-04-10 2022-04-10 Telephone [place], 1.2.840.1 [id number] 2 [id number] Methodi 00:00:00 00:00:[address] 3.430.2.7 Hospit a .3.840441 l .8 2022-04-10 2022-04-10 Refill Meaganuddin, 1.2.840.1 [id number] Methodi 00:00:00 00:00:00 [address] 3.430.2.7 Hospit a .3.903140 l .8 2022-04-06 2022-04-06 Telephone [place], 1.2.840.1 [id number] 2 [id number] Methodi 00:00:00 00:00:[address] 3.430.2.7 Hospit a .3.533924 l .8 2022-03-31 2022-03-31 Refill Cubb, 1.2.840.1 [id number] Methodi 00:00:00 00:00:00 Karmen Kiesha 62137.1.1 891 s t 3.430.2.7 Hospit a .3.379113 l .8 2022-03-03 2022-03-03 Refsvetlana Berg, 1.2.840.1 [id number] Methodi 00:00:00 00:00:00 Karmen Kiesha 15004.1.1 386 s t 3.430.2.7 Hospit a .3.508835 l .8 2022-02-24 2022-02-24 Emergency [facility] [id number] Univers 08:45:00 11:32:00 NA ity of [facility] 2022-02-24 2022-02-24 [facility] 1.2.953.595 [id number] Univers 08:45:00 11:32:00 Na S ARELIFARIDA 350.1.13.10 i ty of [place] 4.2.7.2.686 [facility] [id number] [facility] 084 Branch 2021-11-13 2021-11-13 Emergency [facility] [id number] Univers 08:32:00 10:54:00 JEAN ity of [facility] 2021-11-13 2021-11-13 Emergency [facility] 1.2.584.750 [id number] Univers 08:32:00 10:54:00 Jean MANCERAFARIDA 350.1.13.10 i ty [place] 4.2.7.2.686 [facility] [id number] [facility] 084 Branch 2021-11-10 2021-11-10 Outpatient [facility] [id number] [place] 00:00:00 00:00:00 JANELL [address] 2021-10-05 2021-10-05 Orders Doctor ANEL 1.2.840.114 [id number] Univers 00:00:00 00:00:00 Only Unassigned, JACKIE 350.1.13.10 ity of [place] [facility] 4.2.7.2.686 Govind [id number] [facility] 009 Branch 2021-10-04 2021-10-04 Telephone [facility] 1.2.560.560 [id number] Univers 00:00:00 00:00:00 Elder S HEALTH 350.1.13.10 it y of [place] 4.2.7.2.686 Govind as JAMIE?BLEA [id number] [facility] 198 [facility] 2021-10-04 2021-10-04 Telephone [facility] 1.2.840.114 [id number] Univers 00:00:00 00:00:00 Devin Brinda MANCERAFARIDA 350.1.13.10 i ty [place] [id number] Nj dicregina NAL 198 [facility] 2021-09-30 2021-09-30 Outpatient CHERYL, [facility] 021 [id number] [place] 00:00:00 00:00:00 JANELL [address] 2021-09-27 2021-09-27 Hospital [facility] 1.2.840.114 [id number] Univers 07:55:00 23:59:00 Encounter Devin Brinda BABIN 350.1.13.10 ity [place] [facility] [id number] [facility] [address] [place] 2021-09-27 2021-09-27 Senior Tableau Developer Hemal Carcamo Lab Main [facility] 1.2.8 40.114 [id number] Univers 08:00:00 08:15:00 Visit Devin Suh 350.1.13.10 ity [place] [id number] Nj pool NAL 353 [facility] 2021-09-27 2021-09-27 Outpatient [facility] [id number] Univers 00:00:00 00:00:00 DEVIN ity of [facility] 2021-09-27 2021-09-27 Telephone [facility] 1.2.840.114 [id number] Univers 00:00:00 00:00:00 Devin Brinda HEALTH 350.1.13.10 it y of [place] 4.2.7.2.686 Govind as JAMIE?BLEA [id number] Nj pool KAPLAN [address] [place] [address] OFFICE [facility] 2021-09-26 2021-09-26 Outpatient CHERYL [facility] [id number] [place] 00:00:00 00:00:00 JANELL 830 Method i 2021-09-26 2021-09-26 Outpatient CHERYL [facility] [id number] [place] 00:00:00 00:00:00 JANELL 088 Method i 2021-09-23 2021-09-23 Telephone [facility] 1.2.840.114 [id number] Univers 00:00:00 00:00:00 Devin [facility] 350.1.13.10 it y of [place] 4.2.7.2.686 Govind as JAMIE?BLEA [id number] Nj pool KAPLAN [address] [place] [address] 2021-09-22 2021-09-22 Outpatient Kamari [facility] [id number] Univers 08:40:00 23:59:00 [facility] 2021-09-22 2021-09-22 [facility]patient [facility] [id number] Univers 08:45:00 09:06:14 [facility] 2021-09-22 2021-09-22 Office [facility] [id number] Univers 08:45:00 09:06:14 Visit [facility] [id number] it y of [place] [id number] Govind as JAMIE?BLEA [phone] [place] [address] [place] [address] 2021-09-21 2021-09-21 Outpatient CHERYL [facility] [id number] [place] 00:00:00 00:00:00 JANELL 078 [facility] 2021-09-13 2021-09-13 [id number] [place] 00:00:00 00:00:00 JANELL 007 [facility] 2021-09-02 2021-09-02 Outpatient CHERYL [facility] [id number] [place] 00:00:00 00:00:00 JANELL 903 [facility] 2021-08-19 2021-08-19 [facility] [id number] [place] 00:00:00 00:00:00 JANELL 982 [facility] 2021-08-17 2021-08-17 Transition EFREM Sanchez [id number] [facility] 00:00:00 00:00:00 of Care José Miguel Dahl MICAH [id number] [facility] [id number] [facility] [phone] [facility] [address] 2021-08-14 2021-08-15 Outpatient X SABINE [facility] [id number] [facility] 15:26:00 18:00:00 JOVANY castillo of [facility] 2021-08-14 2021-08-15 Emergency Carlos Bains Rabia MELENDEZSARA [id number] .[id number] [facility] [facility] 15:26:00 18:00:00 Jovany Regalado JACKIE [id number] ity [facility] [id number] [place] [phone] [facility] [address] 2021-08-10 2021-08-10 [facility] 2100 [id number] [place] 00:00:00 00:00:00 JANELL 931 Method i 2021-08-05 2021-08-05 [facility] 2100 [id number] [place] 00:00:00 00:00:00 JANELL 752 Method i 2021-07-20 2021-07-20 [facility] 2100 [id number] [place] 00:00:00 00:00:00 JANELL 114 Method i 2021-07-12 2021-07-12 [facility]patient [facility] 2100 [id number] [place] 00:00:00 00:00:00 JANELL 776 Method i 2021-06-27 2021-06-27 [facility] 2100 [id number] [place] 00:00:00 00:00:00 JANELL 128 Method i 2021-06-23 2021-06-23 [facility] 0[facility] [id number] [place] 00:00:00 00:00:00 JANELL 868 Method i 2021-06-20 2021-06-20 Outpatient MEAGANUDDIN, [facility] 2100 [id number] [place] 00:00:00 00:00:00 JANELL 407 Method i 2021-06-10 2021-06-10 Outpatient MEAGANUDKHUSHI, [facility] 2100 [id number] [place] 00:00:00 00:00:00 JANELL 022 Method i 2021-06-01 2021-06-01 Outpatient MOHYUDDIN, [facility] 2100 [id number] [place] 00:00:00 00:00:00 JANELL 351 Method i 2021-06-01 2021-06-01 Outpatient CUBB, [facility] [id number] [place] 00:00:00 00:00:00 KARMEN 748 Method i 2021-06-01 2021-06-01 Outpatient CUBB, [facility] [id number] [place] 00:00:00 00:00:00 KARMEN 247 Method i 2021-05-24 2021-05-25 Outpatient MCALLISTER, [facility] [id number] [place] 00:00:00 00:00:00 CRICKET 226 Method i 2021-05-24 2021-05-24 Outpatient CUBB, [facility] [id number] [place] 00:00:00 00:00:00 KARMEN 402 Method i 2021-05-24 2021-05-24 Outpatient CHERYL, [facility] 2100 [id number] [place] 00:00:00 00:00:00 JANELL 252 Method i 2021-05-19 2021-05-19 Emergency HARPER, [facility] 064 [id number] [place] 00:00:00 00:00:00 EVE 700 Method i 2021 2021 [facility] [id number] [facility] 08:30:00 23:59:00 Encounter [facility] [id number] [place] [id number] Govind as Jamie?Blea [id number] [place] [facility] 809 [facility] 2021 2021 Outpatient Kamari [facility] [id number] Univers 08:30:00 09:17:45 DEVIN castillo [facility] 2021 2021 Office [facility] [id number] Univers 08:08:45 09:17:45 Visit Devin [facility] [id number] it y of [facility] 4.2.7.2.686 Govind as JAMIE?BLEA [phone] [address] MEDICAL OFFICE [facility] 2021-02-03 2021-02-03 Outpatient CHERYL, [facility] [id number] [place] 00:00:00 00:00:00 JANELL 707 Method i 2020-12-24 2020-12-24 Emergency [facility] [id number] Univers 15:46:00 18:20:00 Loan Manceraton [id number] ity [facility] [id number] [place] [facility] [id number] [address] 2020-12-24 2020-12-24 Emergency X [facility] ERT [id number] Univers 15:46:00 15:46:00 LOAN castillo [facility] 2020-12-22 2020-12-22 Outpatient CHERYL, [facility] 2100 [id number] [place] 00:00:00 00:00:00 JANELL 057 Method i 2020-12-22 2020-12-22 Outpatient CHERYL [facility] 2100 [id number] [place] 00:00:00 00:00:00 JANELL 882 Method i 2020-12-07 2020-12-07 Outpatient MEAGANUDKHUSHI, [facility] 2100 [id number] [place] 00:00:00 00:00:00 JANELL 610 Method i 2020-12-06 2020-12-06 Outpatient JAYA, [facility] [id number] [place] 00:00:00 00:00:00 KARMEN 469 Method i 2020-11-08 2020-11-08 Outpatient MEAGANCONKHUSHI, [facility] 2100 [id number] [place] 00:00:00 00:00:00 JANELL 743 Method i 2020-11-08 2020-11-08 Outpatient GRACEYUDDIN, [facility] 2100 [id number] [place] 00:00:00 00:00:00 JANELL [address] 2020-11-02 2020-11-02 Outpatient GRACEYUDDIN, [facility] 2100 [id number] [place] 00:00:00 00:00:00 JANELL [address] 2020-11-01 2020-11-01 Outpatient GRACEYUDDIN, [facility] 2100 [id number] [place] 00:00:00 00:00:00 JANELL [address] 2020-10-21 2020-10-21 Outpatient GRACEYUDDIN, [facility] 2100 [id number] [place] 00:00:00 00:00:00 JANELL [address] 2020-10-13 2020-10-13 Outpatient GRACEYUDDIN, [facility] 2100 [id number] [place] 00:00:00 00:00:00 JANELL [address] 2020-09-16 2020-09-16 Outpatient MEAGANUDDIN, [facility] 2100 [id number] [place] 00:00:00 00:00:00 JANELL [address] 2020-08-22 2020-08-22 Outpatient PRADEEPBEN, [facility] [id number] [place] 00:00:00 00:00:00 MJ [address] 2020-08-04 2020-08-04 Outpatient MEAGANUDKHUSHI, [facility] 2100 [id number] [place] 00:00:00 00:00:00 JANELL [address] 2020-08-01 2020-08-01 Outpatient [facility] [id number] [place] 00:00:00 00:00:[address] 2020-07-28 2020-07-28 Outpatient MEAGANUDDIN, [facility] 2100 [id number] [place] 00:00:00 00:00:00 JANELL [address] 2020-07-28 2020-07-28 Outpatient MEAGANUDDIN, [facility] 2100 [id number] [place] 00:00:00 00:00:00 JANELL [address] 2020-07-28 2020-07-28 Outpatient MEAGANUDDIN, [facility] 2100 [id number] [place] 00:00:00 00:00:00 JANELL [address] 2020-07-21 2020-07-21 Outpatient MOHYUDDIN, [facility] 2100 [id number] [place] 00:00:00 00:00:00 JANELL [address] 2020-07-19 2020-07-19 Outpatient MOHYUDDIN, [facility] 2100 [id number] [place] 00:00:00 00:00:00 JANELL [address] 2020-07-09 2020-07-09 Outpatient MOHYUDDIN, [facility] 021 [id number] [id number] [place] 00:00:00 00:00:00 JANELL [address] 2020-07-05 2020-07-05 Outpatient MOHYUDDIN, [facility] 2100 [id number] [place] 00:00:00 00:00:00 JANELL [address] 2020-07-05 2020-07-05 Outpatient CUBB, [facility] [id number] [place] 00:00:00 00:00:00 KARMEN [address] 2020-06-24 2020-06-24 Outpatient ZAID, KARMEN [facility] [id number] [place] 00:00:00 00:00:[address] 2020-06-24 2020-06-24 Outpatient ZAID, KARMEN [facility] [id number] [place] 00:00:00 00:00:[address] 2020-06-16 2020-06-16 Outpatient GRACEYUDDIN, [facility] 2100 [id number] [place] 00:00:00 00:00:00 JANELL [address] 2020-06-16 2020-06-16 Outpatient MOHYUDDIN, [facility] 2100 [id number] [place] 00:00:00 00:00:00 JANELL [address] 2020-06-09 2020-06-10 Inpatient AKHIL, [facility] 064 [id number] [place] 00:00:00 00:00:00 KIMI [address] 2020-06-09 2020-06-09 Outpatient CUBB, [facility] [id number] [place] 00:00:00 00:00:00 KARMEN [address] 2020-05-26 2020-05-26 Outpatient MOHYUDDIN, [facility] 2100 [id number] [place] 00:00:00 00:00:00 JANELL [address] 2020-05-26 2020-05-26 Outpatient MOHYUDDIN, [facility] 2100 [id number] [place] 00:00:00 00:00:00 JANELL [address] 2020-05-12 2020-05-12 Outpatient MOHYUDDIN, [facility] 2100 [id number] [place] 00:00:00 00:00:00 JANELL [address] 2020-05-12 2020-05-12 Outpatient MOHYUDDIN, [facility] 2100 [id number] [place] 00:00:00 00:00:00 JANELL [address] 2020-05-03 2020-05-03 Outpatient MOHYUDDIN, [facility] 2100 [id number] [place] 00:00:00 00:00:00 JANELL [address] 2020-04-07 2020-04-07 Outpatient MOHYUDDIN, [facility] 2100 [id number] [place] 00:00:00 00:00:00 JANELL [address] 2020-04-07 2020-04-07 [facility] 2100 [id number] [place] 00:00:00 00:00:00 JANELL [address] 2020-03-24 2020-03-24 Outpatient MOHYUDDIN, [facility] 2100 [id number] [place] 00:00:00 00:00:00 JANELL [address] 2020-03-16 2020 Outpatient FIDE MURRAY [facility] 021 [id number] [place] 00:00:00 00:00:[address] 2020-03-11 2020-03-11 [facility]patient [facility] 2100 [id number] [place] 00:00:00 00:00:00 JANELL [address] 2020-02-24 2020-02-24 Outpatient CUBB, [facility] [id number] [place] 00:00:00 00:00:00 KARMEN [address] 2020-02-13 2020-02-13 Outpatient MOHYUDDIN, [facility] 2100 [id number] [place] 00:00:00 00:00:00 JANELL [address] 2020-02-13 2020-02-13 Outpatient MOHYUDDIN, [facility] 2100 [id number] [place] 00:00:00 00:00:00 JANELL [address] 2020-01-16 2020-01-16 Outpatient MOHYUDDIN, [facility] 2100 [id number] [place] 00:00:00 00:00:00 JANELL [address] 2020-01-15 2020-01-15 Outpatient MOHYUDDIN, [facility] 2100 [id number] [place] 00:00:00 00:00:00 JANELL [address] 2020-01-02 2020-01-02 Outpatient MOHYUDDIN, [facility] 2100 [id number] [place] 00:00:00 00:00:00 JANELL [address] 2020-01-02 2020-01-02 Outpatient MOHYUDDIN, [facility] 2100 [id number] [place] 00:00:00 00:00:00 JANELL [address] 2020-01-02 2020-01-02 Outpatient MOHYUDDIN, [facility] 2100 [id number] [place] 00:00:00 00:00:00 JANELL [address] 2019-12-30 2019-12-30 Outpatient MOHYUDDIN, [facility] 2100 [id number] [place] 00:00:00 00:00:00 JANELL [address] 2019-12-09 2019-12-16 Inpatient MOHYUDDIN, [facility] 006 [id number] [place] 00:00:00 00:00:00 JANELL [address] 2019-12-05 2019-12-05 Outpatient MOHYUDDIN, [facility] [id number] [id number] [place] 00:00:00 00:00:00 JANELL [address] 2019-12-03 2019-12-03 Outpatient MOHYUDDIN, [facility] 2100 [id number] [place] 00:00:00 00:00:00 JANELL [address] 2019-12-03 2019-12-03 Outpatient MOHYUDDIN, [facility] 2100 [id number] [place] 00:00:00 00:00:00 JANELL [address] 2019-11-25 2019-11-25 Outpatient MOHYUDDIN, [facility] 021 [id number] [place] 00:00:00 00:00:00 JANELL [address] 2019-11-18 2019-11-18 Outpatient MOHYUDDIN, [facility] [id number] [id number] [place] 00:00:00 00:00:00 JANELL [address] 2019-11-18 2019-11-18 Outpatient CHERYL [facility] 2100 [id number] [place] 00:00:00 00:00:00 JANELL 852 Method i 2019-11-18 2019-11-18 Outpatient CHERYL [facility] 2100 [id number] [place] 00:00:00 00:00:00 JANELL 853 Method i 2019-11-12 2019-11-12 Outpatient CHERYL [facility] 2100 [id number] [place] 00:00:00 00:00:00 JANELL 428 Method i 2019-11-10 2019-11-10 Transition Laura, [place] 1.2.840.114 [id number] 00:00:00 00:00:00 of Care José Miguel Dahl Arana [id number] [place] 4.2.7.2.686 [id number] [facility] 2019-11-10 2019-11-10 Transition Laura, [place] 1.2.840.114 [id number] [facility] 00:00:00 00:00:00 of Care José Miguel A Micah 350.1.13.10 ity of [place]7.2.[place] [id number] [facility] [address] 2019-11-06 2019-11-07 Emergency OleaEduardoJean [facility] 1.2.840. 114 [id number] 13:35:59 14:27:00 Steven Maradiaga 350.1.13.10 [place] 4.2.7.2.686 [facility] [id number] [facility] 2019-11-06 2019-11-07 Emergency Lefty Jean [facility] 1.2.840. 114 [id number] [facility] 13:35:59 14:27:00 Steven Maradiaga 350.1.13.10 ity of [place]2.[place] [facility] [id number] [facility] [address] 2019-11-06 2019-11-07 Outpatient X LIVIA MARADIAGA [facility] [id number] [facility] 13:35:59 14:27:00 STEVEN castillo [facility] 2019-07-21 2019-07-21 Outpatient SAIGE [facility] [id number] [place] 00:00:00 00:00:00 EDWARD [address] 2019-07-21 2019-07-21 Outpatient SAIGE [facility] [id number] [place] 00:00:00 00:00:00 EDWARD [address] 2019-03-10 2019-03-10 Outpatient SAIGE [facility] [id number] [place] 00:00:00 00:00:00 EDASHA [address] Results Test Description Test Time Test Comments Results Result Comments Source Basic metabolic panel 2022-12-29 03:40:00 Test Item Value Reference Range Interpretation Comme nts Glucose (test code = 103 mg/dL 65-99 H Fastin g reference 2345-7) interval For so meone without known d iabetes, a glucose valuebe tween 100 and 125 mg/dL i s consistent withprediabetes and should be confi rmed with afollow-up test . BUN (test code = 3094-0) 29 mg/dL 7-25 H Creatinine (test code = 1.40 mg/dL 0.70-1.28 H 2160-0) eGFR (test code = 53 See_Comment L The eGFR i s based on the 68681-8) CKD-EPI 2020 eq uation. To calculate the n ew eGFR from a previous Creatinine or C ystamarco Cresult, go to https://www.kid ronn.org/pr ofessionals/kdo qi/gfr%5Fc alculator [Auto mated message] The sy stem which generated this result transmitted ref erence range: > OR = 6 0 mL/min/1.73m2. The reference range was not used to interpr et this result as normal/abnormal . BUN/creatinine ratio 21 See_Comment [Autom ated message] The (test code = 3097-3) system which generated this result tra nsmitted reference range : 6 - 22 (calc). The ref erence range was not u sed to interpret this result as normal/abnormal . Sodium (test code = 140 mmol/L 497-032 7270-2) Potassium (test code = 4.3 mmol/L 3.5-5.3 2823-3) Chloride (test code = 109 mmol/L 98-110 2074-0) CO2 (test code = 2028-02) 27 mmol/L 20-32 Calcium (test code = 9.1 mg/dL 8.6-10.3 21129-9) RAC (test code = RAC) Performing Organization Information: Site ID: GARO Name: [facility] Address: [address] [place] [address] Director: Jacque Stokes Lab Interpretation (test Abnormal code = 76447-1) [facility] [id number] 09:08:00 Test Item Value Reference Range Interpretation Comments Glucose (test code = 123 mg/dL 70-99 H 2345-7) BUN (test code = 42 mg/dL 8-27 H 3094-0) Creatinine (test code 1.93 mg/dL 0.76-1.27 H = 2160-0) eGFR (test code = 36 mL/min/1.73 >=59 L 82468-8) BUN/creatinine ratio 22 10-24 (test code = 3097-3) Sodium (test code = 140 mmol/L 930-991 8260-2) Potassium (test code 4.8 mmol/L 3.5-5.2 = 2823-3) Chloride (test code = 106 mmol/L 96-106 2075-0) CO2 (test code = 18 mmol/L 20-29 L 2027-) Calcium (test code = 9.5 mg/dL 8.6-10.2 66370-8) Protein (test code = 7.0 g/dL 6.0-8.5 2885-2) Albumin (test code = 4.2 g/dL 3.7-4.7 Effe ctive December 1750) 2022 Albumi n reference interval will be changing to: Age Male Female 0 - 7 days 3.6 - 4.9 3.6 - 4.9 8 - 30 days 3.5 - 4 .6 3.5 - 4.6 1 - 6 months 3.7 - 4. 8 3.7 - 4.8 7 months - 2 year s 4.0 - 5.0 4.0 - 5.0 3 - 5 years 4.1 - 5.0 4.1 - 5.0 6 - 12 year s 4.2 - 5.0 4.2 - 5.0 13 - 30 yea rs 4.3 - 5.2 4.0 - 5.0 31 - 50 yea rs 4.1 - 5.1 3.9 - 4.9 51 - 60 yea rs 3.8 - 4.9 3.8 - 4.9 61 - 70 yea rs 3.9 - 4.9 3.9 - 4.9 71 - 80 yea rs 3.8 - 4.8 3.8 - 4.8 81 - 89 yea rs 3.7 - 4.7 3.7 - 4.7 90 - 199 years 3.6 - 4.6 3.6 - 4.6 Globulin, total (test 2.8 g/dL 1.5-4.5 code = 73582-8) Albumin/globulin 1.5 1.2-2.2 ratio (test code = 1759-0) Total bilirubin (test 0.8 mg/dL 0.0-1.2 code = 1975-2) Alkaline phosphatase 76 See_Comment [Autom ated (test code = 6768-6) message ] The system which generated this result transmitted reference range : 44 - 121 IU/L. The reference range was not used to interpr et this result as normal/abnormal . AST (test code = 12 See_Comment [Automated 1919-) message] The system which generated this result transmitted reference range : 0 - 40 IU/L. Th e reference range was not used to interpret this result as normal/abnormal . ALT (test code = 10 See_Comment [Automated 1741-6) message] The system which generated this result transmitted reference range : 0 - 44 IU/L. Th e reference range was not used to interpret this result as normal/abnormal . TESFAYE (test code = TESFAYE) Performed at: Lab[address] [id number] Director: Angelo Lemon MD, Phone: [phone] Lab Interpretation Abnormal (test code = 02313-0) [place] [address], [id number] 09:08:00 Test Item Value Reference Range Interpretation Comments T4, free (test code 1.65 ng/dL 0.82-1.77 = 3024-7) TESFAYE (test code = Performed at: - TESFAYE) [facility]Co[address] [id number] Director: Angelo Lemon MD, Phone: [phone] [facility] stimulating [id number] 09:08:00 Test Item Value Reference Range Interpretation Comments TSH (test code 3.690 See_Comment [Automated m essage] = 95050-7) The system Stackdriver h generated this result transmit rocio reference range : 0.450 - 4.500 uIU/mL. The reference range was not used to interpret this result as normal/abnormal . TESFAYE (test code Performed at: - = TESFAYE) [address] [id number] Director: Angelo Lemon MD, Phone: [phone] [facility] [id number] 09:08:00 Test Item Value Reference Range Interpretation Comments T3 (test code = 73 ng/dL 71-180 3053-6) TESFAYE (test code = Performed at: TESFAYE) [facility] [id number] Director: Angelo Lemon MD, Phone: [phone] [facility] [id number] 11:10:00 Test Item Value Reference Range Interpretation Comments Hemoglobin A1C (test 5.9 % 4.8-5.6 H Predia betes: code = 4548-4) 5.7 - 6.4 Diabetes: >6.4 Glycemic control for adults with diabetes: <7.0 TESFAYE (test code = TESFAYE) Performed at: [address] [id number] Director: Angelo Lemon MD, Phone: [phone] Lab Interpretation Abnormal (test code = 73517-7) [facility] [id number] 14:45:39 Test Item Value Reference Range Interpretation Comments Case number (test code = [id number]) Surgical pathology See link below for report (test code = PDF Lab Report 7546) Result status (test code This is Final Report = [id number]) for [id number] [facility]it[facility] D 25 hydroxy [id number] 12:10:00 Test Item Value Reference Range Interpretation Comments Vitamin D, 32.4 ng/mL 30.0-100.0 Vitamin D defic iency 25-hydroxy has been define d by (test code = the [place] 24683-9) ofMedicine and an Endocrine Socie ty practice guidel ine as alevel of serum 25-OH vitamin D less than 20 ng/mL (1,2). The Endocrine Socie ty went on to furt her define vitamin Dinsufficiency as a level between 2 1 and 29 ng/mL (2).1. IOM ([place] of Medicine). 2010 . Dietary referen ce intakes for priti cium and D. [place]: The National [employer] .2. Devang MF, Hguo MACIAS, Nataliia mccauley CAO, et al. Evaluation, treatment, and prevention of v itamin D deficiency: a n Endocrine Socie ty clinical practi ce guideline. JCEM . 2010; 96(7):1911 -30. TESFAYE (test code Performed at: 01 - = TESFAYE) LabGreasebook[address] [place] [address] [id number] Director: Angelo Lemon MD, Phone: [phone] [facility] ArlingtonThyroglobulin Antibody and Thyroglobulin, CORINE or [id number] 12:10:00 Test Item Value Reference Range Interpretation Comments Thyroglobulin Ab <1.0 See_Comment Thyroglobul in (test code = 8098-6) Antibod y measured by Mckenzie Coul ter Methodology [Automated mess age] The system [employer] generated this result transmit rocio reference range : 0.0 - 0.9 IU/mL . The reference r jeff was not used to interpret this result as normal/abnormal . TESFAYE (test code = Performed at: TESFAYE) - [facility] [address] [id number] Director: Angelo Lemon MD, Phone: [phone] [facility] Arlington[facility]yroglobulin by [id number] 12:10:00 Test Item Value Reference Range Interpretation Comments Thyroglobulin (test 9.3 ng/mL 1.4-29.2 Accordin g to the code = 3013-0) National [facility] flory of Clinical Biochemistry, thereference interval for Thyroglobulin ( TG) should be relat ed toeuthyroid patients and no t for patients wh o underwent thyroidectomy.T G reference inter vals for these patie nts depend on the residualmass of the thyroid tissue left after surgery. Establishing apost-operative baseline is recommended.The assay limit of quantitation is 0.1 ng/mLThyroglobu jorge measured by [email or web address] Immun[employer] As say TESFAYE (test code = Performed at: 01 TESFAYE) - [facility] [address] [place], [place] [id number] Director: Angelo Lemon MD, Phone: [phone] [facility] PARTIAL THRMPLAS [id number] 14:00:38 Test Item Value Reference Range Interpretation Comments APTT Patient (test See_Comment H [Automat ed code = 3173-2) message] The system which generated this result transmitted reference range : 23 - 38 Seconds . The reference range was not used to interpr et this result as normal/abnormal . TESFAYE (test code = TESFAYE) The [facility] patient population mean normal value for aPTT is 30 seconds. Lab Interpretation Abnormal (test code = 99323-2) [facility]. METABOLIC PANEL ([id number])2021-11-13 13:58:57 Test Item Value Reference Range Interpretation Comments NA (test code = 140 mmol/L 135-145 3599245708) K (test code = 4.2 mmol/L 3.5-5.0 8772030599) CL (test code = 109 mmol/L 98-108 H 3789663890) CO2 TOTAL (test code = 20 mmol/L 23-31 L 1673444596) AGAP (test code = 2-16 6555793767) BUN (test code = 23 mg/dL 7-23 0096257427) GLUCOSE (test code = 108 mg/dL 70-110 9651239705) CREATININE (test code = 1.07 mg/dL 0.60-1.25 5157651522) TOTAL BILI (test code = 1.6 mg/dL 0.1-1.1 H 2741617589) CALCIUM (test code = 8.9 mg/dL 8.6-10.6 6241905843) T PROTEIN (test code = 6.5 g/dL 6.3-8.2 3266688748) ALBUMIN (test code = 3.8 g/dL 3.5-5.0 9689099454) ALK PHOS (test code = 76 U/L 34-122 0958229063) ALTv (test code = 11 U/L 5-50 1742-6) AST(SGOT) (test code = 19 U/L 13-40 0090926499) eGFR (test code = mL/min/1.73m2 9009813097) TESFAYE (test code = TESFAYE) Association of Glomerular Filtration Rate (GFR) and Staging of Kidney Disease* + --+ --+ ------+| GFR (mL/min/1.73 m2) ?| With Kidney Damage ?| ?Without Kidney Damage+ --------+ --------+ +| ?>90 ?| ?Stage one ?| ? Normal ?+ ---+ ---+ -------+| ?60-89 ?| ?Stage two ?| ? Decreased GFR ? + --+ --+ ------+| ?30-59 ?| ?Stage three ?| ? Stage three ? + --+ --+ ------+| ?15-29 ?| ?Stage four ? | ? Stage four ?+ ---+ ---+ -------+| ?<15 (or dialysis) ? ?| ?Stage five ? | ? Stage five ?+ ---+ ---+ -------+ *Each stage assumes the associated GFR level has been in effect for at least three months. ?Stages 1 to 5, with or without kidney disease, indicate chronic kidney disease. Notes: Determination of stages one and two (with eGFR >59mL/min/1.73 m2) requires estimation of kidney damage for at least three months as defined by structural or functional abnormalities of the kidney, manifested by either:Pathological abnormalities or Markers of kidney damage (including abnormalities in the composition of the blood or urine or abnormalities in imaging tests). Lab Interpretation Abnormal (test code = 21848-9) [facility] [id number] 13:58:17 Test Item Value Reference Range Interpretation Comments PROTIME PATIENT (test See_Comment H [Auto mated message] code = 5964-2) The system zhiwo generated this result transmitted ref erence range: 12.0 - 1 4.7 Seconds. The reference range was not used to int erpret this result as normal/abnormal . INR (test code = 6301-6) Nor mal INR <1.1; Warfarin Therap eutic range 2.0 to 3. 0 or 2.5 to 3.5, dep ending upon the indica tions. Lab Interpretation (test Abnormal code = 28487-7) [facility] WITH [id number] 13:48:14 Test Item Value Reference Range Interpretation Comments WBC (test code = See_Comment [Automated 6690-2) message] The sy stem which generated this result transmitted reference range : 4.20 - 10.70 10*3/?L. The reference range was not used to interpret this result as normal/abnormal . RBC (test code = See_Comment L [Automated 789-8) message] The sy stem which generated this result transmitted reference range : 4.26 - 5.52 10*6/?L. The reference range was not used to interpret this result as normal/abnormal . HGB (test code = 11.9 g/dL 12.2-16.4 L 718-7) HCT (test code = 35.7 % 38.4-49.3 L 4544-3) MCV (test code = 90.8 fL 81.7-95.6 787-2) MCH (test code = 30.3 pg 26.1-32.7 785-6) MCHC (test code = 33.3 g/dL 31.2-35.0 786-4) RDW-SD (test code = 53.4 fL 38.5-51.6 H 91276-6) RDW-CV (test code = 16.0 % 12.1-15.4 H 788-0) PLT (test code = See_Comment [Automated 777-3) message] The sy stem which generated this result transmitted reference range : 150 - 328 10*3/ ?L. The reference r jeff was not used to interpret this result as normal/abnormal . MPV (test code = 10.4 fL 9.8-13.0 71355-6) NRBC/100 WBC (test See_Comment [Automat ed code = 7157660102) message] The system which generated this result transmitted reference range : 0.0 - 10.0 /100 WBCs. The refer ence range was not u sed to interpret th is result as normal/abnormal . NRBC x10^3 (test code <0.01 See_Comment [Auto mated = [id number]) message] The s ystem which generated this result transmitted reference range : 10*3/?L. The reference range was not used to interpret this result as normal/abnormal . GRAN MAT (NEUT) % 61.6 % (test code = 770-8) IMM GRAN % (test code 0.60 % = 2564598788) LYMPH % (test code = 19.3 % 736-9) MONO % (test code = 15.9 % 5905-5) EOS % (test code = 1.4 % 713-8) BASO % (test code = 1.2 % 706-2) GRAN MAT x10^3(ANC) 3.03 10*3/uL 1.99-6.95 (test code = 6038509050) IMM GRAN x10^3 (test 0.03 10*3/uL 0.00-0.06 code = 1872084950) LYMPH x10^3 (test code 0.95 10*3/uL 1.09-3.23 L = 731-0) MONO x10^3 (test code 0.78 10*3/uL 0.36-1.02 = 742-7) EOS x10^3 (test code = 0.07 10*3/uL 0.06-0.53 711-2) BASO x10^3 (test code 0.06 10*3/uL 0.01-0.09 = 704-7) Lab Interpretation Abnormal (test code = 19472-9) [facility] WITH [id number] 13:10:55 Test Item Value Reference Range Interpretation Comments WBC (test code = See_Comment [Automated 4390-2) message] The sy stem which generated this result transmitted reference range : 4.20 - 10.70 10*3/?L. The reference range was not used to interpret this result as normal/abnormal . RBC (test code = See_Comment L [Automated 779-8) message] The sy stem which generated this result transmitted reference range : 4.26 - 5.52 10*6/?L. The reference range was not used to interpret this result as normal/abnormal . HGB (test code = 12.7 g/dL 12.2-16.4 718-7) HCT (test code = 38.2 % 38.4-49.3 L 4544-3) MCV (test code = 90.7 fL 81.7-95.6 787-2) MCH (test code = 30.2 pg 26.1-32.7 785-6) MCHC (test code = 33.2 g/dL 31.2-35.0 786-4) RDW-SD (test code = 50.6 fL 38.5-51.6 35878-2) RDW-CV (test code = 15.3 % 12.1-15.4 788-0) PLT (test code = See_Comment [Automated 777-3) message] The sy stem which generated this result transmitted reference range : 150 - 328 10*3/ ?L. The reference r jeff was not used to interpret this result as normal/abnormal . MPV (test code = 10.2 fL 9.8-13.0 83374-2) NRBC/100 WBC (test See_Comment [Automat ed code = 8965187262) message] The system which generated this result transmitted reference range : 0.0 - 10.0 /100 WBCs. The refer ence range was not u sed to interpret th is result as normal/abnormal . NRBC x10^3 (test code <0.01 See_Comment [Auto mated = 9758800367) message] The s ystem which generated this result transmitted reference range : 10*3/?L. The reference range was not used to interpret this result as normal/abnormal . GRAN MAT (NEUT) % 60.4 % (test code = 770-8) IMM GRAN % (test code 0.40 % = 2203613767) LYMPH % (test code = 25.8 % 736-9) MONO % (test code = 8.7 % 5905-5) EOS % (test code = 3.0 % 713-8) BASO % (test code = 1.7 % 706-2) GRAN MAT x10^3(ANC) 2.85 10*3/uL 1.99-6.95 (test code = 5696122771) IMM GRAN x10^3 (test <0.03 0.00-0.06 code = 7867374814) LYMPH x10^3 (test code 1.22 10*3/uL 1.09-3.23 = 731-0) MONO x10^3 (test code 0.41 10*3/uL 0.36-1.02 = 742-7) EOS x10^3 (test code = 0.14 10*3/uL 0.06-0.53 711-2) BASO x10^3 (test code 0.08 10*3/uL 0.01-0.09 = 704-7) Lab Interpretation Abnormal (test code = 40455-9) [facility] [Presence] in Respiratory specimen by PRITI with probe [id number] 22:27:04 Test Item Value Reference Range Interpretation Comments SARS-CoV-2 (COVID-19) RNA Not detected [Presence] in Respiratory specimen by PRITI with probe detection (test code = 38079-4) Whether patient is employed in a Unknown healthcare setting (test code = 27326-6) Whether the patient has symptoms Unknown related to condition of interest (test code = 40462-6) Whether the patient was Unknown hospitalized for condition of interest (test code = 49881-3) Whether the patient was admitted Unknown to intensive care unit (ICU) for condition of interest (test code = 31996-4) Whether patient resides in a Unknown congregate care setting (test code = 35096-0) status (test code = Unknown 97374-2) Date and time of symptom onset Unknown (test code = 91590-8) [facility] (COVID-19) RNA [Presence] in Respiratory specimen by PRITI with probe [id number] 17:50:42 Test Item Value Reference Range Interpretation Comments SARS-CoV-2 (COVID-19) RNA Not detected Not-Detected [Presence] in Respiratory specimen by PRITI with probe detection (test code = 97875-0) Whether patient is employed in a healthcare setting (test code = 47228-6) Whether the patient has symptoms related to condition of interest (test code = 24391-0) Patient was hospitalized because of this condition (test code = 64704-4) Whether the patient was admitted to intensive care unit (ICU) for condition of interest (test code = 53791-6) Whether patient resides in a congregate care setting (test code = 06921-4) [facility] (COVID-19) RNA [Presence] in Respiratory specimen by PRITI with probe [id number] 20:28:59 Test Item Value Reference Range Interpretation Comments SARS-CoV-2 (COVID-19) RNA Not detected Not-Detected [Presence] in Respiratory specimen by PRITI with probe detection (test code = 04439-3) Whether patient is employed in a healthcare setting (test code = 26627-0) Whether the patient has symptoms related to condition of interest (test code = 98471-7) Patient was hospitalized because of this condition (test code = 61453-5) Whether the patient was admitted to intensive care unit (ICU) for condition of interest (test code = 47961-3) Whether patient resides in a congregate care setting (test code = 59716-0) [facility] QABQTJEY-IpU-3 (COVID-19) RNA [Presence] in Respiratory specimen by PRITI with probe [id number] 20:50:39 Test Item Value Reference Range Interpretation Comments SARS-CoV-2 (COVID-19) RNA Not detected Not-Detected [Presence] in Respiratory specimen by PRITI with probe detection (test code = 90337-1) [facility] YUJBMHWZ-FvZ-0 (COVID-19) RNA [Presence] in Respiratory specimen by PRITI with probe [id number] 05:42:16 Test Item Value Reference Range Interpretation Comments SARS-CoV-2 (COVID-19) RNA Not detected Not-Detected [Presence] in Respiratory specimen by PRITI with probe detection (test code = 81202-7) [facility] VCKEJFVT-XqU-5 (COVID-19) RNA [Presence] in Respiratory specimen by PRITI with probe [id number] 17:41:12 Test Item Value Reference Range Interpretation Comments SARS-CoV-2 (COVID-19) RNA Not detected Not-Detected [Presence] in Respiratory specimen by PRITI with probe detection (test code = 64924-5) [facility] SADISARS coronavirus 2 RNA [Presence] in Respiratory specimen by PRITI with probe [id number] 17:42:36 Test Item Value Reference Range Interpretation Comments SARS coronavirus 2 RNA Not detected Not-Detected [Presence] in Respiratory specimen by PRITI with probe detection (test code = 23943-0) [facility]"
[2022-12-31] MEDS ORDERED: NA CHLORIDE 0.9% 500 ML ONE (12:00)
[2022-12-31] MEDS ORDERED: NA CHLORIDE 0.9% 1,000 ML ONE (12:00)
[2022-12-31] MEDS ORDERED: CEFTRIAXONE 1000 MG/VIAL ONE ×2 (12:04→14:54)
[2022-12-31] MEDS ORDERED: TAMSULOSIN 0.4 MG SR CAP ONE (12:04)
[2022-12-31 12:19] LABS: Absolute Lymphocytes (CBC) 0.9 K/uL (0.7-4.9); Hematocrit 31.5 % (39.6-49.0); Lymphocytes % 22.7 % (15.3-44.8); MCV 91.5 fL (80-100); MPV 7.7 fL (7.6-11.3); RBC Red Blood Cell Count 3.44 M/uL (4.33-5.43)
--- NOTE | 2022-12-31 12:24 | RAD REPORT ---
EXAM DESCRIPTION: CT - Stone Protocol - 12/31/2022 11:59 am CLINICAL HISTORY: Abd pain;Pain COMPARISON: Abdomen Pelvis Wo Contrast dated 05/13/2019 TECHNIQUE: Thin cut axial CT imaging of the abdomen and pelvis was performed without IV contrast. Mu ltiplanar reformats were generated and reviewed. All CT scans are performed using dose optimization technique as appropriate and may include automated exposure control or mA/KV adjustment according to patient size. FINDINGS: No suspicious findings in the lung bases. The liver, spleen, and adrenal glands show no suspicious findings. Pancreas again shows fatty infiltr ation most pronounced at the head, without focal suspicious abnormalities. Gallbladder was surgically removed. No evidence of intra or extrahepatic biliary ductal dilation. Symmetric renal contour, without suspicious parenchymal findings within limits of noncontrast techniq ue. Mild bilateral hydronephrosis and perinephric fat stranding, new. No radiopaque calculi. Prostato megaly with calcifications. Central mesenteric fat stranding, stable to slightly more pronounced than on prior exam, nonspecific. No dilated bowel loops or bowel wall thickening. No free air, free fluid or other inflammatory stran ding. No hernia, mass or bulky lymphadenopathy. The urinary bladder shows mild pericystic fat strandi ng. No suspicious bony findings. Chronic deformity along the right iliac crest. IMPRESSION: Mild bilateral hydronephrosis and bilateral perinephric fat stranding. Pericystic fat st randing as well. Findings raise concern for cystitis with ascending infection. Please correlate clini nataliia and with urinalysis results. No evidence of obstructing calculi. Other incidental findings as above, including a nonspecific mild central mesenteric fat stranding, st able to slightly more pronounced than on prior exam.
--- NOTE | 2022-12-31 12:36 | RAD REPORT ---
EXAM DESCRIPTION: Seniat Single View12/31/2022 12:19 pm CLINICAL HISTORY: COUGH COMPARISON: Chest Single View dated 08/06/2021; Chest Pa And Lat (2 Views) dated 06/09/2019; Chest Pa And Lat (2 Views) dated 08/14/2016 TECHNIQUE: Portable AP view of the chest. FINDINGS: Decreased inspiratory effort limits evaluation. The lungs are clear apart from bibasilar a telectatic changes. . No pneumothorax or effusion. The cardiomediastinal contours are unremarkable. IMPRESSION: No acute cardiopulmonary process.
[2022-12-31 12:37] LABS: Albumin 3.3 g/dL (3.4-5.0); Bilirubin Total 0.7 mg/dL (0.2-1.0); Protein, Total 7.4 g/dL (6.4-8.2)
[2022-12-31] MEDS ORDERED: Levofloxacin500mg IV 500 MG/100 ML BAG IV ONE (12:56)
[2022-12-31 13:05] LABS: Specific Gravity 1.013 (1.005-1.030); Urine Bacteria Loaded /HPF (<20); Urine Bilirubin NEGATIVE (Negative); Urine Blood 2+ (Negative); Urine Clarity Extremely Turbid (Clear); Urine Color Yellow (Yellow); Urine Glucose NEGATIVE (Negative); Urine Mucus Slight /HPF (None Seen); Urine Protein 1+ (Negative); Urine RBC 21-50 /HPF (None Seen); Urine Urobilinogen Normal (Normal); Urine WBC Clump Occasional /HPF (None Seen); Urine pH 5.5 (5.0-7.0)
--- NOTE | 2022-12-31 14:33 | EDPHYS ---
Physician Documentation [facility] Name: Sierra Valdes Age: 72 yrs Sex: Male : 1950 Arrival Date: 12/31/2022 Time: 10:53 Bed 20 Private MD: KARINA Physician Jeb Meier HPI: 12/31 11:46 This 72 yrs old Male presents to ER via Ambulatory with complaints of Urinary yaron Retention. 11:46 The patient presents with abdominal pain in the lower abdomen, abdominal distention in yaron the upper abdomen, in the lower abdomen. Onset: The symptoms/episode began/occurred 14 day(s) ago. The patient presents with urinary symptoms, dysuria, urinary frequency. Onset: The symptoms/episode began/occurred 14 day(s) ago. Modifying factors: The symptoms are alleviated by nothing, the symptoms are aggravated by urinating. Associated signs and symptoms: The patient has no apparent associated signs or symptoms. The symptoms do not radiate. Associated signs and symptoms: none. Modifying factors: The symptoms are alleviated by nothing, the symptoms are aggravated by nothing. Severity of pain: At its worst the pain was mild in the emergency department the pain is unchanged. Historical: - Allergies: 11:08 Iodine; ap3 11:08 Latex, Natural Rubber; ap3 - Home Meds: 11:08 Xarelto oral [Active]; ap3 - PMHx: 11:08 Atrial fibrillation; diabetes mellitus; Hypercholesterolemia; cancer-"voice box"; ap3 - PSHx: 11:08 Laryngectomy; Thyroidectomy; ap3 - Immunization history:: Client reports receiving the 2nd dose of the Covid vaccine. - Social history:: Smoking status: Patient denies any tobacco usage or history of. - Family history:: not pertinent. ROS: 11:46 Constitutional: Negative for fever, chills, and weight loss, Eyes: Negative for injury, yaron pain, redness, and discharge, ENT: Negative for injury, pain, and discharge, Neck: Negative for injury, pain, and swelling, Cardiovascular: Negative for chest pain, palpitations, and edema, Respiratory: Negative for shortness of breath, cough, wheezing, and pleuritic chest pain, Back: Negative for injury and pain, MS/Extremity: Negative for injury and deformity, Skin: Negative for injury, rash, and discoloration, Neuro: Negative for headache, weakness, numbness, tingling, and seizure, Psych: Negative for depression, anxiety, suicide ideation, homicidal ideation, and hallucinations, Allergy/Immunology: Negative for hives, rash, and allergies, Endocrine: Negative for neck swelling, polydipsia, polyuria, polyphagia, and marked weight changes, Hematologic/Lymphatic: Negative for swollen nodes, abnormal bleeding, and unusual bruising. 11:46 Abdomen/GI: Positive for abdominal pain, of the right lower quadrant and left lower quadrant. 11:46 : Positive for urinary symptoms, urinary frequency, small amounts, burning with urination, difficulty urinating. Exam: 11:46 Constitutional: This is a well developed, well nourished patient who is awake, alert, yaron and in no acute distress. Head/Face: Normocephalic, atraumatic. Eyes: Pupils equal round and reactive to light, extra-ocular motions intact. Lids and lashes normal. Conjunctiva and sclera are non-icteric and not injected. Cornea within normal limits. Periorbital areas with no swelling, redness, or edema. ENT: Nares patent. No nasal discharge, no septal abnormalities noted. Tympanic membranes are normal and external auditory canals are clear. Oropharynx with no redness, swelling, or masses, exudates, or evidence of obstruction, uvula midline. Mucous membranes moist. Chest/axilla: Normal chest wall appearance and motion. Nontender with no deformity. No lesions are appreciated. Cardiovascular: Regular rate and rhythm with a normal S1 and S2. No gallops, murmurs, or rubs. Normal PMI, no JVD. No pulse deficits. Respiratory: Lungs have equal breath sounds bilaterally, clear to auscultation and percussion. No rales, rhonchi or wheezes noted. No increased work of breathing, no retractions or nasal flaring. Back: No spinal tenderness. No costovertebral tenderness. Full range of motion. Male : Normal genitalia with no discharge or lesions. Skin: Warm, dry with normal turgor. Normal color with no rashes, no lesions, and no evidence of cellulitis. MS/ Extremity: Pulses equal, no cyanosis. Neurovascular intact. Full, normal range of motion. Neuro: Awake and alert, GCS 15, oriented to person, place, time, and situation. Cranial nerves II-XII grossly intact. Motor strength 5/5 in all extremities. Sensory grossly intact. Cerebellar exam normal. Normal gait. Psych: Awake, alert, with orientation to person, place and time. Behavior, mood, and affect are within normal limits. 11:46 Neck: External neck: laryngectomy. 11:46 Abdomen/GI: Inspection: distension, that is mild, Bowel sounds: active, all quadrants, Palpation: mild abdominal tenderness, in the suprapubic area, right lower quadrant and left lower quadrant, Liver: Hernia: not appreciated. Vital Signs: 11:06 BP 121 / 58; Pulse 66; Resp 17; Temp 98.4; Pulse Ox 98% ; Weight 96.16 kg; ap3 13:19 BP 116 / 62; Pulse 56; Resp 16 S; Pulse Ox 97% on R/A; kc6 14:10 BP 115 / 63; Pulse 55; Resp 17 S; Pulse Ox 98% on R/A; kc6 MDM: 11:05 Patient medically screened. yaron 11:50 Differential diagnosis: nonspecific abdominal pain, UTI, urinary retention, yaron prostatitis, diverticulitis, gastritis, non-specific abd pain, pancreatitis, Prostatitis, urinary tract infection. Data reviewed: vital signs, nurses notes, lab test result(s), radiologic studies, CT scan, plain films. Consideration of Admission/Observation Escalation of care including admission/observation considered. I considered the following discharge prescriptions or medication management in the emergency department Medications were administered in the Emergency Department. See MAR. Test considered but Not performed: Ultrasound abd usg. Historians other than the Patient: Spouse/Significant Other: well informed. Care significantly affected by the following chronic conditions: Diabetes, larynx cancer, a fib, high cholesterol. Counseling: I had a detailed discussion with the patient and/or guardian regarding: the historical points, exam findings, and any diagnostic results supporting the discharge/admit diagnosis, lab results, radiology results. 12/31 11:06 Order name: Urinalysis w/ reflexes; Complete Time: 14:29 [facility] 12/31 11:45 Order name: CBC with Diff; Complete Time: 12:40 yaron 12/31 11:45 Order name: Comprehensive Metabolic Panel; Complete Time: 12:40 [facility] 12/31 11:45 Order name: Lipase; Complete Time: 12:40 [facility] 12/31 13:08 Order name: Urine Culture EDMS 12/31 11:45 Order name: Chest Single View XRAY; Complete Time: 12:40 [facility] 12/31 11:45 Order name: CT Stone Protocol; Complete Time: 12:40 [facility] 12/31 11:06 Order name: Misc. Order: note pvr; Complete Time: 14:10 yaron Administered Medications: 15:01 Discontinued: NS 0.9% IV 1000 ml IV at 125 ml/hr continuous kc6 12:23 Drug: NS 0.9% IV 500 ml Route: IV; Rate: bolus; Site: right antecubital; kc6 13:18 Follow up: Response: No adverse reaction; IV Status: Completed infusion; IV Intake: kc6 500ml 12:23 Drug: NS 0.9% IV 1000 ml Route: IV; Rate: 125 ml/hr; Site: right antecubital; kc6 12:23 Drug: Rocephin IV 1 grams Route: IV; Rate: per protocol; Site: right antecubital; kc6 13:18 Follow up: Response: No adverse reaction; IV Status: Completed infusion kc6 12:23 Drug: Flomax PO 0.4 mg Route: PO; kc6 12:58 Follow up: Response: No adverse reaction ap3 13:18 Follow up: Response: No adverse reaction kc6 12:58 Drug: levofloxacin IVPB 500 mg Volume: 100 ml; Route: IVPB; Infused Over: 60 mins; ap3 Site: right antecubital; 14:38 Follow up: Response: No adverse reaction; IV Status: Completed infusion kc6 14:58 Drug: Rocephin IV 1 grams Route: IV; Rate: per protocol; Site: right antecubital; kc6 15:01 Follow up: Response: No adverse reaction; IV Status: Completed infusion kc6 Disposition Summary: 12/31/22 14:32 Discharge Ordered Location: Home yaron Problem: new yaron Symptoms: have improved yaron Condition: Stable yaron Diagnosis - Acute cystitis yaron - Dysuria yaron - UTI/ Urinary tract infection, site not specified yaron Followup: yaron - With: Private Physician - When: 2 - 3 days - Reason: Recheck today's complaints, Continuance of care, Re-evaluation by your physician Followup: yaron - With: Dave Payne MD - When: 2 - 3 days - Reason: Recheck today's complaints, Re-evaluation by your physician Discharge Instructions: - Discharge Summary Sheet yaron - Dysuria yaron - Urinary Tract Infection, Adult yaron - Urinary Tract Infection, Adult, Xtna-og-Mpro [facility] Forms: - Medication Reconciliation Form yaron - Thank You Letter yaron - Antibiotic Education yaron - Prescription Opioid Use yaron - [email or web address] [facility] Prescriptions: - Flomax 0.4 mg Oral capsule - take 1 capsule by ORAL route every day at bedtime; 30 capsule; Refills: 0, [facility] Product Selection Permitted - cefdinir 300 mg Oral capsule - take 1 capsule by ORAL route every 12 hours; 20 capsule; Refills: 0, Product yaron Selection Permitted - levofloxacin 250 mg Oral Tablet - take 1 tablet by ORAL route once daily; 9 tablet; Refills: 0, Product Selection yaron Permitted Signatures: Dispatcher [employer] Jeb Tapia MD MD cha Prokisch, Amanda RN RN ap3 Sol Coats RN RN kc6 Corrections: (The following items were deleted from the chart) 11:42 11:06 Ji dawson cha, cha
--- NOTE | 2022-12-31 14:33 | ER ---
Nurse's Notes [facility] Name: Sierra Valdes Age: 72 yrs Sex: Male : 1950 Arrival Date: 12/31/2022 Time: 10:53 Bed 20 Private MD: Diagnosis: Acute cystitis;Dysuria;UTI/ Urinary tract infection, site not specified Presentation: 12/31 11:06 Chief complaint: Spouse and/or significant other states: the patient has been having ap3 bladder pressure and painful urination for "some time". patients called his PCP, who informed them to come to the ER for further evaluation due to the patients medical history. Coronavirus screen: At this time, the client does not indicate any symptoms associated with coronavirus-19. Ebola Screen: No symptoms or risks identified at this time. Initial Sepsis Screen: Does the patient meet any 2 criteria? No. Patient's initial sepsis screen is negative. Does the patient have a suspected source of infection? No. Patient's initial sepsis screen is negative. Risk Assessment: Do you want to hurt yourself or someone else? Patient reports no desire to harm self or others. Onset of symptoms is unknown. 11:06 Method Of Arrival: Ambulatory ap3 11:06 Acuity: LEYDI 3 ap3 Triage Assessment: 11:09 General: Appears in no apparent distress. Behavior is calm, cooperative. Pain: ap3 Complains of pain in suprapubic area Quality of pain is described as pressure. Neuro: Level of Consciousness is awake, alert, obeys commands, Oriented to person, place, time, situation. Cardiovascular: Patient's skin is warm and dry. Respiratory: Airway is patent Respiratory effort is even, unlabored, Respiratory pattern is regular, symmetrical, patients recent sx has him having difficult time swallowing, and speaking. : Reports pain with urination. Historical: - Allergies: 11:08 Iodine; ap3 11:08 Latex, Natural Rubber; ap3 - Home Meds: 11:08 Xarelto oral [Active]; ap3 - PMHx: 11:08 Atrial fibrillation; diabetes mellitus; Hypercholesterolemia; cancer-"voice box"; ap3 - PSHx: 11:08 Laryngectomy; Thyroidectomy; ap3 - Immunization history:: Client reports receiving the 2nd dose of the Covid vaccine. - Social history:: Smoking status: Patient denies any tobacco usage or history of. - Family history:: not pertinent. Screenin:00 [facility] ED Fall Risk Assessment (Adult) History of falling in the last 3 months, kc6 including since admission No falls in past 3 months (0 pts) Confusion or Disorientation No (0 pts) Intoxicated or Sedated No (0 pts) Impaired Gait No (0 pts) Mobility Assist Device Used No (0 pt) Altered Elimination No (0 pt) Score/Fall Risk Level 0 - 2 = Low Risk Oriented to surroundings, Maintained a safe environment, Educated pt \\T\\ family on fall prevention, incl call for assistance when getting out of bed, Assessed \\T\\ reinforced patient's understanding of fall precautions, Hourly rounding (assess needs \\T\\ fall precautionary measures) done. 11:10 Abuse screen: Denies threats or abuse. Nutritional screening: No deficits noted. ap3 Tuberculosis screening: No symptoms or risk factors identified. Assessment: 11:00 General: Appears in no apparent distress. comfortable, Behavior is calm, cooperative, kc6 appropriate for age. Neuro: Level of Consciousness is awake, alert, obeys commands, Oriented to person, place, time, situation, Appropriate for age. Cardiovascular: Capillary refill < 3 seconds. Respiratory: Airway is patent Trachea midline Respiratory effort is even, unlabored, Respiratory pattern is regular, symmetrical. GI: No signs and/or symptoms were reported involving the gastrointestinal system. : Reports inability to void, pain with urination. EENT: No signs and/or symptoms were reported regarding the EENT system. Derm: No signs and/or symptoms reported regarding the dermatologic system. Skin is intact, is healthy with good turgor, Skin is pink, warm \\T\\ dry. Musculoskeletal: No signs and/or symptoms reported regarding the musculoskeletal system. Circulation, motion, and sensation intact. Capillary refill < 3 seconds, Range of motion: intact in all extremities. 11:21 Reassessment: prevoid = 44mL via bladder scan. pt unable to void at this time. Dr. francisco Meier notified. verbal order received to hold paul catheter and give pt PO liquid. 12:21 Reassessment: Patient appears in no apparent distress at this time. No changes from kc6 previously documented assessment. Patient and/or family updated on plan of care and expected duration. Pain level reassessed. Patient is alert, oriented x 3, equal unlabored respirations, skin warm/dry/pink. 12:45 Reassessment: pt appears to have voided approximately 200mL of clear, yellow urine into kc6 urinal. Dr. Meier notified. 13:19 Reassessment: Patient appears in no apparent distress at this time. No changes from kc6 previously documented assessment. Patient and/or family updated on plan of care and expected duration. Pain level reassessed. Patient is alert, oriented x 3, equal unlabored respirations, skin warm/dry/pink. 13:57 Reassessment: pt appears to have voided approximately 400mL of clear, yellow urine into kc6 urinal. 14:10 Reassessment: Patient appears in no apparent distress at this time. No changes from kc6 previously documented assessment. Patient and/or family updated on plan of care and expected duration. Pain level reassessed. Patient is alert, oriented x 3, equal unlabored respirations, skin warm/dry/pink. Vital Signs: 11:06 BP 121 / 58; Pulse 66; Resp 17; Temp 98.4; Pulse Ox 98% ; Weight 96.16 kg; ap3 13:19 BP 116 / 62; Pulse 56; Resp 16 S; Pulse Ox 97% on R/A; kc6 14:10 BP 115 / 63; Pulse 55; Resp 17 S; Pulse Ox 98% on R/A; kc6 ED Course: 10:56 Patient arrived in ED. im 11:01 Sol Coats, JUAN R is Primary Nurse. kc6 11:05 Jeb Meier MD is Attending Physician. yaron 11:08 Triage completed. ap3 11:10 Patient has correct armband on for positive identification. Placed in gown. Bed in low ap3 position. Call light in reach. Adult w/ patient. Pulse ox on. NIBP on. 11:11 Arm band placed on left wrist. ap3 12:01 CT Stone Protocol In Process Unspecified. EDMS 12:21 Chest Single View XRAY In Process Unspecified. EDMS 12:30 Inserted saline lock: 20 gauge in right antecubital area, using aseptic technique. kc6 Blood collected. 12:35 Urinalysis w/ reflexes Sent. kc6 14:31 Dave Payne MD is Referral Physician. yaron 15:01 No provider procedures requiring assistance completed. IV discontinued, intact, kc6 bleeding controlled, No redness/swelling at site. Pressure dressing applied. Administered Medications: 15:01 Discontinued: NS 0.9% IV 1000 ml IV at 125 ml/hr continuous kc6 12:23 Drug: NS 0.9% IV 500 ml Route: IV; Rate: bolus; Site: right antecubital; kc6 13:18 Follow up: Response: No adverse reaction; IV Status: Completed infusion; IV Intake: kc6 500ml 12:23 Drug: NS 0.9% IV 1000 ml Route: IV; Rate: 125 ml/hr; Site: right antecubital; kc6 12:23 Drug: Rocephin IV 1 grams Route: IV; Rate: per protocol; Site: right antecubital; kc6 13:18 Follow up: Response: No adverse reaction; IV Status: Completed infusion kc6 12:23 Drug: Flomax PO 0.4 mg Route: PO; kc6 12:58 Follow up: Response: No adverse reaction ap3 13:18 Follow up: Response: No adverse reaction kc6 12:58 Drug: levofloxacin IVPB 500 mg Volume: 100 ml; Route: IVPB; Infused Over: 60 mins; ap3 Site: right antecubital; 14:38 Follow up: Response: No adverse reaction; IV Status: Completed infusion kc6 14:58 Drug: Rocephin IV 1 grams Route: IV; Rate: per protocol; Site: right antecubital; kc6 15:01 Follow up: Response: No adverse reaction; IV Status: Completed infusion kc6 Medication: 15:01 VIS not applicable for this client. kc6 Intake: 13:18 IV: 500ml; Total: 500ml. kc6 Outcome: 14:32 Discharge ordered by MD. marrufo 15:01 Discharged to home via wheelchair, with significant other. kc6 15:01 Condition: improved 15:01 Discharge instructions given to patient, Instructed on discharge instructions, follow up and referral plans. medication usage, Demonstrated understanding of instructions, follow-up care, medications, Prescriptions given X 2. 15:02 Patient left the ED. kc6 Addendum: 01/03/2023 08:51 Addendum: Culture Results: Positive urine culture. No further action required. Bacteria h b sensitive to prescribed antibiotic. Signatures: Dispatcher [employer] [facility] Jeb Meier MD MD cha Baxter, Heather, RN RN Crissy Mcmanus RN RN [email or web address] Sol Coats RN RN kc6 Radha Lam Corrections: (The following items were deleted from the chart) 12/31 11:25 11:21 Reassessment: prevoid = 44mL via bladder scan kc6 kc6 13:21 13:19 Pulse 56bpm; Resp 16bpm; Spontaneous; Pulse Ox 97% RA; kc6 kc6
[2022-12-31 15:51] VITALS: BP 115/63; O2SAT 98
== END 2022-12-31 15:02 | disposition home or self-care (01) ==
LOC: ER 10:53
DX: N30.00 Acute cystitis without hematuria (principal); I48.91 Unspecified atrial fibrillation; Z79.01 Long term (current) use of anticoagulants; Z91.040 Latex allergy status; Z91.048 Other nonmedicinal substance allergy status
CPT/HCPCS: 96365; 87088; 85025; 81001; 87086; 36415; 87077; 87186; 83690; 80053; 76377; 74176; 71045; 99285; J7040; J7030; J0696 ×2